=== PATIENT | female | born 1970 | race Caucasian/White ===

== ENCOUNTER 2021-04-08 14:46 | Outpatient (REF) | payer OTHER, SELFPAY ==
--- NOTE | ~2021-04-08 | MM_ITS ---
EXAMINATION: MM SCREENING DIGITAL BREAST TOMOSYNTHESIS, BILATERAL CLINICAL INFORMATION: Screening. Asymptomatic. The lifetime risk of breast cancer based on the Tyrer-Cuzick Model is 10%. COMPARISON: Mammography: 01/03/2019, 12/15/2017 (new baseline) TECHNIQUE: Digital breast tomosynthesis is performed in both the craniocaudal and mediolateral oblique views along with computer-aided detection (CAD). Synthesized 2D images are generated from the tomosynthesis. FINDINGS: There are scattered areas of fibroglandular density (ACR BI-RADS breast composition Category b). The right breast shows no mass or architectural abnormality. Both breasts have some scattered predominantly dermal calcifications. The axilla and skin contours are unremarkable. The left MLO view has focal radiating lines upper quadrant 5.8 cm from nipple, likely summation of the stromal and vascular markings rather than architectural changes. Patient will be recalled to confirm. MM/MM tomosynthesis screening BI IMPRESSION: 1. Left: Focal radiating lines upper breast on MLO view likely artifact from summation of stromal and vascular markings. 2. Right: No mammographic evidence of malignancy. ASSESSMENT: BI-RADS 0: Incomplete - Need Additional Imaging Evaluation RECOMMENDATION: 1. Additional views of the left breast (3D spot MLO, 3D ML). 2. Targeted ultrasound if warranted after review of the additional views. 3. Radiology department staff will contact the patient for additional imaging. This patient's information was entered into a reminder system with a target due date for their next mammogram.
== END 2021-04-08 14:47 | disposition home or self-care (01) ==
LOC: HO.MAMMO 14:46
PROVIDERS: PCP Family Medicine; Visit Provider Family Medicine
DX: Z12.31 Encounter for screening mammogram for malignant neoplasm of breast (principal)
CPT/HCPCS: 77063; 77067

== ENCOUNTER 2021-04-29 14:03 | Outpatient (REF) | payer OTHER, SELFPAY ==
--- NOTE | ~2021-04-29 | MM_ITS ---
EXAMINATION: MM DIAGNOSTIC DIGITAL BREAST TOMOSYNTHESIS, LEFT CLINICAL INFORMATION: Recall from screening for question of focal radiating lines upper left breast on MLO view. Suspect summation artifact. COMPARISON: Mammography: 04/08/2021, 01/03/2019, 12/15/2017 TECHNIQUE: Digital breast tomosynthesis is performed. 2D images are generated from the tomosynthesis. The following views are obtained: Spot MLO, standard ML FINDINGS: There are scattered areas of fibroglandular density (ACR BI-RADS breast composition Category b). The additional views show no architectural abnormality. There is no developing density or mass. Results are discussed with the patient at time of visit. MM/MM tomosynthesis added views L IMPRESSION: Additional views left breast show no abnormality. No significant changes from prior studies. ASSESSMENT: BI-RADS 1: Negative RECOMMENDATION: Routine annual mammography screening. This patient's information was entered into a reminder system with a target due date for their next mammogram.
== END 2021-04-29 14:04 | disposition home or self-care (01) ==
LOC: HO.MAMMO 14:03
PROVIDERS: Visit Provider Family Medicine
DX: N64.89 Other specified disorders of breast (principal)
CPT/HCPCS: 77061; 77065

== ENCOUNTER 2022-05-01 11:31 | Outpatient (REF) | payer OTHER, SELFPAY ==
--- NOTE | ~2022-05-01 | MM_ITS ---
EXAMINATION: MM SCREENING DIGITAL BREAST TOMOSYNTHESIS, BILATERAL CLINICAL INFORMATION: Screening. Asymptomatic. The lifetime risk of breast cancer based on the Tyrer-Cuzick Model is 8%. COMPARISON: Mammography: The 04/29/2021, 04/08/2021, 01/03/2019, 12/15/2017 (new baseline) TECHNIQUE: Digital breast tomosynthesis is performed in both the craniocaudal and mediolateral oblique views along with computer-aided detection (CAD). Synthesized 2D images are generated from the tomosynthesis. FINDINGS: There are scattered areas of fibroglandular density (ACR BI-RADS breast composition Category b). There are no significant masses, abnormal calcifications, or other abnormalities. Parenchymal pattern is similar to prior studies. There is no developing density or architectural abnormality. The axilla and skin contours are unremarkable. No significant changes. MM/MM tomosynthesis screening BI IMPRESSION: No mammographic evidence of malignancy. ASSESSMENT: BI-RADS 1: Negative RECOMMENDATION: Routine annual mammography screening. This patient's information was entered into a reminder system with a target due date for their next mammogram.
== END 2022-05-01 11:32 | disposition home or self-care (01) ==
LOC: HO.MAMMO 11:31
PROVIDERS: PCP Family Medicine; Visit Provider Family Medicine
DX: Z12.31 Encounter for screening mammogram for malignant neoplasm of breast (principal)
CPT/HCPCS: 77063; 77067

== ENCOUNTER 2022-08-08 14:45 | Emergency (ER) | payer OTHER, SELFPAY ==
--- NOTE | ~2022-08-08 | XR_ITS ---
EXAMINATION: XR CHEST CLINICAL INFORMATION: Chest pain COMPARISON: None TECHNIQUE: Frontal view of the chest was obtained. FINDINGS: No significant abnormality is noted involving the heart, lungs, mediastinum, bony thorax or soft tissues. XR/XR chest 1V IMPRESSION: Unremarkable examination.
--- NOTE | ~2022-08-08 | CT_ITS ---
EXAMINATION: CT ANGIOGRAM OF THE CHEST WITH AND WITHOUT CONTRAST (CT PULMONARY ANGIOGRAM FOR PE) CLINICAL INFORMATION: Reason for Exam left sided chest pain concern for PE COMPARISON: None TECHNIQUE: Prior to contrast administration, noncontrast localization images were obtained. Subsequently, multidetector volumetric imaging was performed from the thoracic inlet to below the diaphragms following the administration of 80 mL Omnipaque 350 intravenous contrast. No contrast reaction reported Sagittal, coronal, and MIP oblique sagittal reformatted images were obtained on the CT workstation, uploaded to PACS, and reviewed. This CT examination was performed using dose optimization techniques as appropriate, variously including the following: *Automated exposure control *Adjustment of mA and/or kV according to patient size (this includes techniques or standardized protocols for targeted exams where dose is matched to indication/reason for exam; i.e. extremities or head) *Use of iterative reconstruction technique Total exam dose-length product 210 mGy-cm FINDINGS: QUALITY OF STUDY/CONTRAST BOLUS: Satisfactory. PULMONARY ARTERIES: No central or segmental pulmonary emboli. THORACIC AORTA: No aneurysm or dissection. LUNG: No focal consolidation, nodules or masses. There is minimal left basilar atelectatic changes. PLEURA: No pleural effusion or pneumothorax. MEDIASTINUM: The heart size is normal. No pericardial effusion seen. No coronary artery calcium quantification is present. No abnormal size mediastinal or hilar lymph nodes seen. Central trachea and the bronchi widely patent. The thyroid lobes are symmetrical and normal. No evidence of septal bowing or right heart strain. CHEST WALL/AXILLA: No axillary or internal mammary lymphadenopathy. OSSEOUS STRUCTURES: No aggressive lytic or sclerotic process seen. UPPER ABDOMEN: Visualized liver, spleen, pancreas and bilateral adrenal glands unremarkable. No reflux of contrast into the hepatic veins to suggest elevated right heart pressures. CT/CT angio chest PE protocol IMPRESSION: No evidence of PE. No evidence aortic dissection or aneurysm. Trace platelike atelectasis left lung base. VTE: negative.
[2022-08-08 15:14] VITALS: BP 110/82; PULSE 99; RESP 18; TEMP 36.9; O2SAT 98; BMI 24.5
--- NOTE | 2022-08-08 15:14 | ECG_ITS ---
Test Reason : CHEST PAIN Blood Pressure : / mmHG Vent. Rate : 061 BPM Atrial Rate : 061 BPM P-R Int : 144 ms QRS Dur : 078 ms QT Int : 394 ms P-R-T Axes : 038 023 -01 degrees QTc Int : 396 ms Normal sinus rhythm with sinus arrhythmia Possible Left atrial enlargement Nonspecific T wave abnormality Abnormal ECG No previous ECGs available Referred By: Crow Coleman Electronically Signed By:DORINA SALCIDO MD
--- NOTE | 2022-08-08 15:15 | ED_ITS ---
HPI - General Adult General Chief complaint: Chest Pain <JIM Feliz - Last Filed: 08/08/22 15:17> Stated complaint: Chest pain <JIM Feliz - Last Filed: 08/08/22 15:17> Time Seen by Provider: 08/08/22 16:16 <JIM Feliz - Last Filed: 08/08/22 15:17> Source: patient <JIM Perkins - Last Filed: 08/08/22 18:55> Mode of arrival: ambulatory <JIM Perkins Last Filed: 08/08/22 18:55> Limitations: no limitations <JIM Perkins Last Filed: 08/08/22 18:55> History of Present Illness HPI narrative: 52 yo female presenting to the ER for evaluation of pleuritic type chest pain and difficultly taking a deep breath that started yesterday. She also reports a fever and headache for the last 3-4 days. She states yesterday she started with chest heaviness across the whole chest. Today the chest pain is on the left side and is localized to the center of the left chest, shooting to the back. It comes and goes. Has been taking ibuprofen with improvement. She also reports calf pain last week she thought was from running. No associated swelling or redness. She recently started estrogen and progesterone for HRT for her postmenopausal symptoms 3 weeks ago. <JIM Perkins - Last Filed: 08/08/22 18:55> MD complaint: chest pain <JIM Perkins - Last Filed: 08/08/22 18:55> Onset (ago): day(s) (1) <JIM Perkins Last Filed: 08/08/22 18:55> Location: chest <JIM Perkins Last Filed: 08/08/22 18:55> Radiation: back <JIM Perkins Last Filed: 08/08/22 18:55> Severity: moderate <JIM Perkins Last Filed: 08/08/22 18:55> Severity scale (1-10): 6 <JIM Perkins Last Filed: 08/08/22 18:55> Quality: stabbing and sharp <JIM Perkins Last Filed: 08/08/22 18:55> Pain Consistency: intermittent <JIM Perkins Last Filed: 08/08/22 18:55> Relieving factors: none <JIM Perkins Last Filed: 08/08/22 18:55> Exacerbating factors: none <JIM Perkins Last Filed: 08/08/22 18:55> Associated symptoms: chest pain, fever/chills, headaches and malaise <JIM Perkins Last Filed: 08/08/22 18:55> Treatments prior to arrival: none <JIM Perkins Last Filed: 08/08/22 18:55> Related Data Allergies/adverse reactions: Allergies Allergy/AdvReac Type Severity Reaction Status Date / Time amoxicillin [From AUGMENTIN] Allergy Unknown SWELLING Unverified 04/29/20 18:48 clavulanic acid Allergy Unknown SWELLING Unverified 04/29/20 18:48 [From AUGMENTIN] Sulfa (Sulfonamide Allergy Unknown HIVES Unverified 04/29/20 18:48 Antibiotics) [SULFA (SULFONAMIDE ANTIBIOTICS)] tetracycline Allergy Unknown Verified 11/02/16 00:00 Tetracyclines [TETRACYCLINES] Allergy Unknown HIVE Unverified 04/29/20 18:48 Pt states no food allergies Allergy Unknown Uncoded 11/02/16 00:00 <JIM Feliz Last Filed: 08/08/22 15:17> Review of Systems Review of Systems: Constitutional: + Fever, + Chills ENT/Mouth: No sore throat, No Rhinorrhea, No Swallowing Difficulty Eyes: No Eye Pain, No Swelling, No Redness Cardiovascular: + Chest Pain, + SOB, No Orthopnea, No Edema Respiratory: + Cough, No Sputum, No Wheezing, No dyspnea Gastrointestinal: No Nausea, No Vomiting, No Diarrhea, No abdominal Pain Genitourinary: No Dysuria, No Urinary Frequency, No Hematuria Musculoskeletal: + joint pain, + Myalgias Skin: No Skin Lesions, No rash Neuro: No Weakness, No Numbness, No Dizziness, No Headache Psych: + Anxiety/Panic, No Depression Heme/Lymph: No Bruising, No Lymphadenopathy <JIM Perkins - Last Filed: 08/08/22 18:55> [facility] Social History Social History: Social History Advance Directives: No Advance Directives Information Provided: No <JIM Feliz - Last Filed: 08/08/22 15:17> Physical Exam ED Vital Signs: Vital Signs - 24 hr 08/08/22 15:14 08/08/22 19:09 Temperature 98.5 F 99.4 F Pulse Rate 99 63 Respiratory Rate 18 17 Blood Pressure 110/82 100/66 Pulse Oximetry 98 100 Oxygen Delivery Method Room Air Room Air BMI result Body Mass Index 24.5 <JIM Feliz - Last Filed: 08/08/22 15:17> Vital Signs - 24 hr 08/08/22 15:14 08/08/22 19:09 Temperature 98.5 F 99.4 F Pulse Rate 99 63 Respiratory Rate 18 17 Blood Pressure 110/82 100/66 Pulse Oximetry 98 100 Oxygen Delivery Method Room Air Room Air BMI result Body Mass Index 24.5 <JIM Perkins - Last Filed: 08/08/22 18:55> Vital Signs - 24 hr 08/08/22 15:14 08/08/22 19:09 Temperature 98.5 F 99.4 F Pulse Rate 99 63 Respiratory Rate 18 17 Blood Pressure 110/82 100/66 Pulse Oximetry 98 100 Oxygen Delivery Method Room Air Room Air BMI result Body Mass Index 24.5 <Kari Liz NP - Last Filed: 08/08/22 19:49> Appearance: Alert. Oriented X3. No acute distress. Eyes: Pupils equal, round and reactive to light. ENT: Pharynx normal. Neck: Normal inspection. Neck supple. CVS: Normal heart rate and rhythm. Pulses normal. No chest wall tenderness. Respiratory: No respiratory distress. Breath sounds normal. Abdomen: Soft and nontender. +BS x4 Skin: Skin warm and dry. Normal skin color. Normal skin turgor. No rashes. Extremities: No lower extremity edema. No calf swelling or erythema. Neuro: Oriented X 3. No motor deficit. No sensory deficit. Steady gait <JIM Perkins - Last Filed: 08/08/22 18:55> Course Course Course Narrative: 1515 52 year old female presents w/ flu like sx X 3 days w/ bodyaches, fevers, chills, headache, and pleuritic CP. Recently started on hormone replacement therapy a few weeks ago shes worried about PE. Has had multiple negative at home COVID tests. No hx of PE. Not a smoker PE: patient well appearing, stable vitals, no lower extremity edema, negative remy b/l Plan: labs, viral panel, trop, dimer, cxr <JIM Feliz - Last Filed: 08/08/22 15:17> 1515 52 year old female presents w/ flu like sx X 3 days w/ bodyaches, fevers, chills, headache, and pleuritic CP. Recently started on hormone replacement therapy a few weeks ago shes worried about PE. Has had multiple negative at home COVID tests. No hx of PE. Not a smoker PE: patient well appearing, stable vitals, no lower extremity edema, negative remy b/l Plan: labs, viral panel, trop, dimer, cxr 19:49 CT PE study is negative. Will have patient follow-up for prior providers discharge instructions <Kari Liz NP - Last Filed: 08/08/22 19:49> Reevaluation(s) Reevaluation #1: troponin negative which is reassuring against ACS. DDIMER only 221 however given her calf pain last week and HRT will get CTA to r/o PE <JIM Perkins - Last Filed: 08/08/22 18:55> Medications Administered Discontinued Medications Generic Name Dose Route Start Last Admin Trade Name Freq PRN Reason Stop Dose Admin Iohexol 65 ml 08/08/22 17:21 08/08/22 17:21 Iohexol 350 Mg/Ml 75 Ml Infus..Btl IV 08/08/22 17:22 65 ml ONCE ONE Administration <JIM Feliz - Last Filed: 08/08/22 15:17> Medications Administered Discontinued Medications Generic Name Dose Route Start Last Admin Trade Name Freq PRN Reason Stop Dose Admin Iohexol 65 ml 08/08/22 17:21 08/08/22 17:21 Iohexol 350 Mg/Ml 75 Ml Infus..Btl IV 08/08/22 17:22 65 ml ONCE ONE Administration <JIM Perkins - Last Filed: 08/08/22 18:55> Medications Administered Discontinued Medications Generic Name Dose Route Start Last Admin Trade Name Carmelo PRN Reason Stop Dose Admin Iohexol 65 ml 08/08/22 17:21 08/08/22 17:21 Iohexol 350 Mg/Ml 75 Ml Infus..Btl IV 08/08/22 17:22 65 ml ONCE ONE Administration <Kari Liz NP - Last Filed: 08/08/22 19:49> Medical Decision Making Differential Diagnosis Differential Diagnoses: The differential diagnosis associated with the presentation includes <Kari Liz NP - Last Filed: 08/08/22 19:49> Consult Healthcare Provider Management of the patient was discussed with: [employer] <Kari Liz NP - Last Filed: 08/08/22 19:49> Lab Data MDM Lab Attestation statement: I reviewed the patient's lab results. <JIM Perkins - Last Filed: 08/08/22 18:55> Result Diagrams: : 08/08/22 16:04 08/08/22 16:04 <JIM Feliz - Last Filed: 08/08/22 15:17> Labs: Lab Results 08/08/22 08/08/22 08/08/22 Range/Units 16:04 16:04 16:04 WBC 9.9 (4.8-10.8) X10*3/uL RBC 4.18 L (4.20-5.50) X10*6/uL Hgb 12.8 (12.0-16.0) g/dl Hct 38.4 (37.0-47.0) % MCV 91.9 (80.0-98.0) fL MCH 30.6 (27.0-33.0) pg MCHC 33.3 (31.0-35.0) g/dl RDW 13.9 (11.0-16.0) % Plt Count 89 L (160-400) X10*3/uL MPV 11.2 (9.4-12.3) fL Immature Gran % (Auto) 0.4 (0.0-0.4) % Neut % (Auto) 80.5 H (45-73) % Lymph % (Auto) 10.1 L (20-40) % [place] % (Auto) 8.1 (2-11) % Eos % (Auto) 0.6 (0-4) % Baso % (Auto) 0.3 (0-2) % Lymph # (Auto) 1.0 L (1.2-4.9) X10*3/uL [place] # (Auto) 0.8 (0.1-1.2) X10*3/uL Eos # (Auto) 0.1 (0.0-0.4) X10*3/uL Baso # (Auto) 0.0 (0.0-0.2) X10*3/uL Abs Immat Gran (auto) 0.04 H (0.00-0.03) X10*3/uL Absolute Neuts (auto) 8.0 (2.0-8.3) x10*3/uL Absolute Nucleated RBC 0.000 (0.0-0.012) X10*3/uL Nucleated RBC % (auto) 0.0 (0.0-0.2) /100WBC Smear Tech's Comments VERIFIED ESR (0-20) MM/HR D-Dimer High Sensitivty 221 NG/ML Sodium 135 (135-145) mmol/L Potassium 4.2 (3.3-5.1) mmol/L Chloride 104 (96-108) mmol/L Carbon Dioxide 22 (22-29) mmol/L Anion Gap 13 (12-20) BUN 15 (9-16) mg/dL Creatinine 0.86 (0.5-1.4) mg/dL Estim Creat Clear Calc 64.9 Estimated GFR > 60 Random Glucose 94 (60-115) mg/dL Calcium 9.2 (8.4-10.2) mg/dL Magnesium 1.8 (1.6-2.6) mg/dL Total Bilirubin 0.5 (0.0-1.0) mg/dL AST 64 H (5-31) U/L ALT 96 H (0-31) U/L Alkaline Phosphatase 85 (39-117) U/L Troponin I High Sens (<3.5-17.0) ng/L C-Reactive Protein 37.29 H (< or = 0.50) mg/dL Total Protein 6.5 (6.5-8.0) g/dL Albumin 3.9 (3.5-5.0) g/dL Influenza Type A (PCR) (Negative) Influenza Type B (PCR) (Negative) RSV RNA Qual (PCR) (Negative) SARS-CoV-2 RNA (RT-PCR) (Negative) 08/08/22 08/08/22 08/08/22 Range/Units 16:04 16:04 16:04 WBC (4.8-10.8) X10*3/uL RBC (4.20-5.50) X10*6/uL Hgb (12.0-16.0) g/dl Hct (37.0-47.0) % MCV (80.0-98.0) fL MCH (27.0-33.0) pg MCHC (31.0-35.0) g/dl RDW (11.0-16.0) % Plt Count (160-400) X10*3/uL MPV (9.4-12.3) fL Immature Gran % (Auto) (0.0-0.4) % Neut % (Auto) (45-73) % Lymph % (Auto) (20-40) % [place] % (Auto) (2-11) % Eos % (Auto) (0-4) % Baso % (Auto) (0-2) % Lymph # (Auto) (1.2-4.9) X10*3/uL [place] # (Auto) (0.1-1.2) X10*3/uL Eos # (Auto) (0.0-0.4) X10*3/uL Baso # (Auto) (0.0-0.2) X10*3/uL Abs Immat Gran (auto) (0.00-0.03) X10*3/uL Absolute Neuts (auto) (2.0-8.3) x10*3/uL Absolute Nucleated RBC (0.0-0.012) X10*3/uL Nucleated RBC % (auto) (0.0-0.2) /100WBC Smear Tech's Comments ESR 87 H (0-20) MM/HR D-Dimer High Sensitivty NG/ML Sodium (135-145) mmol/L Potassium (3.3-5.1) mmol/L Chloride (96-108) mmol/L Carbon Dioxide (22-29) mmol/L Anion Gap (12-20) BUN (9-16) mg/dL Creatinine (0.5-1.4) mg/dL Estim Creat Clear Calc Estimated GFR Random Glucose (60-115) mg/dL Calcium (8.4-10.2) mg/dL Magnesium (1.6-2.6) mg/dL Total Bilirubin (0.0-1.0) mg/dL AST (5-31) U/L ALT (0-31) U/L Alkaline Phosphatase (39-117) U/L Troponin I High Sens < 3.5 (<3.5-17.0) ng/L C-Reactive Protein (< or = 0.50) mg/dL Total Protein (6.5-8.0) g/dL Albumin (3.5-5.0) g/dL Influenza Type A (PCR) NEGATIVE (Negative) Influenza Type B (PCR) NEGATIVE (Negative) RSV RNA Qual (PCR) NEGATIVE (Negative) SARS-CoV-2 RNA (RT-PCR) NEGATIVE (Negative) <JIM Feliz - Last Filed: 08/08/22 15:17> Lab Results 08/08/22 08/08/22 08/08/22 Range/Units 16:04 16:04 16:04 WBC 9.9 (4.8-10.8) X10*3/uL RBC 4.18 L (4.20-5.50) X10*6/uL Hgb 12.8 (12.0-16.0) g/dl Hct 38.4 (37.0-47.0) % MCV 91.9 (80.0-98.0) fL MCH 30.6 (27.0-33.0) pg MCHC 33.3 (31.0-35.0) g/dl RDW 13.9 (11.0-16.0) % Plt Count 89 L (160-400) X10*3/uL MPV 11.2 (9.4-12.3) fL Immature Gran % (Auto) 0.4 (0.0-0.4) % Neut % (Auto) 80.5 H (45-73) % Lymph % (Auto) 10.1 L (20-40) % [place] % (Auto) 8.1 (2-11) % Eos % (Auto) 0.6 (0-4) % Baso % (Auto) 0.3 (0-2) % Lymph # (Auto) 1.0 L (1.2-4.9) X10*3/uL [place] # (Auto) 0.8 (0.1-1.2) X10*3/uL Eos # (Auto) 0.1 (0.0-0.4) X10*3/uL Baso # (Auto) 0.0 (0.0-0.2) X10*3/uL Abs Immat Gran (auto) 0.04 H (0.00-0.03) X10*3/uL Absolute Neuts (auto) 8.0 (2.0-8.3) x10*3/uL Absolute Nucleated RBC 0.000 (0.0-0.012) X10*3/uL Nucleated RBC % (auto) 0.0 (0.0-0.2) /100WBC Smear Tech's Comments VERIFIED ESR (0-20) MM/HR D-Dimer High Sensitivty 221 NG/ML Sodium 135 (135-145) mmol/L Potassium 4.2 (3.3-5.1) mmol/L Chloride 104 (96-108) mmol/L Carbon Dioxide 22 (22-29) mmol/L Anion Gap 13 (12-20) BUN 15 (9-16) mg/dL Creatinine 0.86 (0.5-1.4) mg/dL Estim Creat Clear Calc 64.9 Estimated GFR > 60 Random Glucose 94 (60-115) mg/dL Calcium 9.2 (8.4-10.2) mg/dL Magnesium 1.8 (1.6-2.6) mg/dL Total Bilirubin 0.5 (0.0-1.0) mg/dL AST 64 H (5-31) U/L ALT 96 H (0-31) U/L Alkaline Phosphatase 85 (39-117) U/L Troponin I High Sens (<3.5-17.0) ng/L C-Reactive Protein 37.29 H (< or = 0.50) mg/dL Total Protein 6.5 (6.5-8.0) g/dL Albumin 3.9 (3.5-5.0) g/dL Influenza Type A (PCR) (Negative) Influenza Type B (PCR) (Negative) RSV RNA Qual (PCR) (Negative) SARS-CoV-2 RNA (RT-PCR) (Negative) 08/08/22 08/08/22 08/08/22 Range/Units 16:04 16:04 16:04 WBC (4.8-10.8) X10*3/uL RBC (4.20-5.50) X10*6/uL Hgb (12.0-16.0) g/dl Hct (37.0-47.0) % MCV (80.0-98.0) fL MCH (27.0-33.0) pg MCHC (31.0-35.0) g/dl RDW (11.0-16.0) % Plt Count (160-400) X10*3/uL MPV (9.4-12.3) fL Immature Gran % (Auto) (0.0-0.4) % Neut % (Auto) (45-73) % Lymph % (Auto) (20-40) % [place] % (Auto) (2-11) % Eos % (Auto) (0-4) % Baso % (Auto) (0-2) % Lymph # (Auto) (1.2-4.9) X10*3/uL [place] # (Auto) (0.1-1.2) X10*3/uL Eos # (Auto) (0.0-0.4) X10*3/uL Baso # (Auto) (0.0-0.2) X10*3/uL Abs Immat Gran (auto) (0.00-0.03) X10*3/uL Absolute Neuts (auto) (2.0-8.3) x10*3/uL Absolute Nucleated RBC (0.0-0.012) X10*3/uL Nucleated RBC % (auto) (0.0-0.2) /100WBC Smear Tech's Comments ESR 87 H (0-20) MM/HR D-Dimer High Sensitivty NG/ML Sodium (135-145) mmol/L Potassium (3.3-5.1) mmol/L Chloride (96-108) mmol/L Carbon Dioxide (22-29) mmol/L Anion Gap (12-20) BUN (9-16) mg/dL Creatinine (0.5-1.4) mg/dL Estim Creat Clear Calc Estimated GFR Random Glucose (60-115) mg/dL Calcium (8.4-10.2) mg/dL Magnesium (1.6-2.6) mg/dL Total Bilirubin (0.0-1.0) mg/dL AST (5-31) U/L ALT (0-31) U/L Alkaline Phosphatase (39-117) U/L Troponin I High Sens < 3.5 (<3.5-17.0) ng/L C-Reactive Protein (< or = 0.50) mg/dL Total Protein (6.5-8.0) g/dL Albumin (3.5-5.0) g/dL Influenza Type A (PCR) NEGATIVE (Negative) Influenza Type B (PCR) NEGATIVE (Negative) RSV RNA Qual (PCR) NEGATIVE (Negative) SARS-CoV-2 RNA (RT-PCR) NEGATIVE (Negative) <JIM Perkins - Last Filed: 08/08/22 18:55> Lab Results 08/08/22 08/08/22 08/08/22 Range/Units 16:04 16:04 16:04 WBC 9.9 (4.8-10.8) X10*3/uL RBC 4.18 L (4.20-5.50) X10*6/uL Hgb 12.8 (12.0-16.0) g/dl Hct 38.4 (37.0-47.0) % MCV 91.9 (80.0-98.0) fL MCH 30.6 (27.0-33.0) pg MCHC 33.3 (31.0-35.0) g/dl RDW 13.9 (11.0-16.0) % Plt Count 89 L (160-400) X10*3/uL MPV 11.2 (9.4-12.3) fL Immature Gran % (Auto) 0.4 (0.0-0.4) % Neut % (Auto) 80.5 H (45-73) % Lymph % (Auto) 10.1 L (20-40) % [place] % (Auto) 8.1 (2-11) % Eos % (Auto) 0.6 (0-4) % Baso % (Auto) 0.3 (0-2) % Lymph # (Auto) 1.0 L (1.2-4.9) X10*3/uL [place] # (Auto) 0.8 (0.1-1.2) X10*3/uL Eos # (Auto) 0.1 (0.0-0.4) X10*3/uL Baso # (Auto) 0.0 (0.0-0.2) X10*3/uL Abs Immat Gran (auto) 0.04 H (0.00-0.03) X10*3/uL Absolute Neuts (auto) 8.0 (2.0-8.3) x10*3/uL Absolute Nucleated RBC 0.000 (0.0-0.012) X10*3/uL Nucleated RBC % (auto) 0.0 (0.0-0.2) /100WBC Smear Tech's Comments VERIFIED ESR (0-20) MM/HR D-Dimer High Sensitivty 221 NG/ML Sodium 135 (135-145) mmol/L Potassium 4.2 (3.3-5.1) mmol/L Chloride 104 (96-108) mmol/L Carbon Dioxide 22 (22-29) mmol/L Anion Gap 13 (12-20) BUN 15 (9-16) mg/dL Creatinine 0.86 (0.5-1.4) mg/dL Estim Creat Clear Calc 64.9 Estimated GFR > 60 Random Glucose 94 (60-115) mg/dL Calcium 9.2 (8.4-10.2) mg/dL Magnesium 1.8 (1.6-2.6) mg/dL Total Bilirubin 0.5 (0.0-1.0) mg/dL AST 64 H (5-31) U/L ALT 96 H (0-31) U/L Alkaline Phosphatase 85 (39-117) U/L Troponin I High Sens (<3.5-17.0) ng/L C-Reactive Protein 37.29 H (< or = 0.50) mg/dL Total Protein 6.5 (6.5-8.0) g/dL Albumin 3.9 (3.5-5.0) g/dL Influenza Type A (PCR) (Negative) Influenza Type B (PCR) (Negative) RSV RNA Qual (PCR) (Negative) SARS-CoV-2 RNA (RT-PCR) (Negative) 08/08/22 08/08/22 08/08/22 Range/Units 16:04 16:04 16:04 WBC (4.8-10.8) X10*3/uL RBC (4.20-5.50) X10*6/uL Hgb (12.0-16.0) g/dl Hct (37.0-47.0) % MCV (80.0-98.0) fL MCH (27.0-33.0) pg MCHC (31.0-35.0) g/dl RDW (11.0-16.0) % Plt Count (160-400) X10*3/uL MPV (9.4-12.3) fL Immature Gran % (Auto) (0.0-0.4) % Neut % (Auto) (45-73) % Lymph % (Auto) (20-40) % [place] % (Auto) (2-11) % Eos % (Auto) (0-4) % Baso % (Auto) (0-2) % Lymph # (Auto) (1.2-4.9) X10*3/uL [place] # (Auto) (0.1-1.2) X10*3/uL Eos # (Auto) (0.0-0.4) X10*3/uL Baso # (Auto) (0.0-0.2) X10*3/uL Abs Immat Gran (auto) (0.00-0.03) X10*3/uL Absolute Neuts (auto) (2.0-8.3) x10*3/uL Absolute Nucleated RBC (0.0-0.012) X10*3/uL Nucleated RBC % (auto) (0.0-0.2) /100WBC Smear Tech's Comments ESR 87 H (0-20) MM/HR D-Dimer High Sensitivty NG/ML Sodium (135-145) mmol/L Potassium (3.3-5.1) mmol/L Chloride (96-108) mmol/L Carbon Dioxide (22-29) mmol/L Anion Gap (12-20) BUN (9-16) mg/dL Creatinine (0.5-1.4) mg/dL Estim Creat Clear Calc Estimated GFR Random Glucose (60-115) mg/dL Calcium (8.4-10.2) mg/dL Magnesium (1.6-2.6) mg/dL Total Bilirubin (0.0-1.0) mg/dL AST (5-31) U/L ALT (0-31) U/L Alkaline Phosphatase (39-117) U/L Troponin I High Sens < 3.5 (<3.5-17.0) ng/L C-Reactive Protein (< or = 0.50) mg/dL Total Protein (6.5-8.0) g/dL Albumin (3.5-5.0) g/dL Influenza Type A (PCR) NEGATIVE (Negative) Influenza Type B (PCR) NEGATIVE (Negative) RSV RNA Qual (PCR) NEGATIVE (Negative) SARS-CoV-2 RNA (RT-PCR) NEGATIVE (Negative) <Kari Liz NP - Last Filed: 08/08/22 19:49> Independent Interpretation I performed an independent interpretation of an: EKG <JIM Perkins - Last Filed: 08/08/22 18:55> CT Scan <Kari Liz NP - Last Filed: 08/08/22 19:49> Interpretation: Normal sinus rhythm with sinus arrhythmia, ventricular rate 61 beats per minute, T-wave inversions noted in leads III, AVF, V1, V3, V4. no old EKG for comparison <JIM Perkins - Last Filed: 08/08/22 18:55> Radiology Impression Discussion of test interpretation with radiology: I have reviewed the radiologist's reading. <Kari Liz NP - Last Filed: 08/08/22 19:49> Radiologist Impression: EXAMINATION: CT ANGIOGRAM OF THE CHEST WITH AND WITHOUT CONTRAST (CT PULMONARY ANGIOGRAM FOR PE) CLINICAL INFORMATION: Reason for Exam left sided chest pain concern for PE COMPARISON: None? TECHNIQUE: Prior to contrast administration, noncontrast localization images were obtained. ? Subsequently, multidetector volumetric imaging was performed from the thoracic inlet to below the diaphragms following the administration of 80 mL Omnipaque 350 intravenous contrast. No contrast reaction reported Sagittal, coronal, and MIP oblique sagittal reformatted images were obtained on the CT workstation, uploaded to PACS, and reviewed. This CT examination was performed using dose optimization techniques as appropriate, variously including the following: *Automated exposure control *Adjustment of mA and/or kV according to patient size (this includes techniques or standardized protocols for targeted exams where dose is matched to indication/reason for exam; i.e. extremities or head) *Use of iterative reconstruction technique Total exam dose-length product 210 mGy-cm FINDINGS: QUALITY OF STUDY/CONTRAST BOLUS: Satisfactory. PULMONARY ARTERIES: No central or segmental pulmonary emboli.? THORACIC AORTA: No aneurysm or dissection. LUNG: No focal consolidation, nodules or masses. There is minimal left basilar atelectatic changes. PLEURA: No pleural effusion or pneumothorax. MEDIASTINUM: The heart size is normal. No pericardial effusion seen. No coronary artery calcium quantification is present. No abnormal size mediastinal or hilar lymph nodes seen. Central trachea and the bronchi widely patent. The thyroid lobes are symmetrical and normal.? No evidence of septal bowing or right heart strain. CHEST WALL/AXILLA: No axillary or internal mammary lymphadenopathy. OSSEOUS STRUCTURES: No aggressive lytic or sclerotic process seen.? UPPER ABDOMEN: Visualized liver, spleen, pancreas and bilateral adrenal glands unremarkable.? No reflux of contrast into the hepatic veins to suggest elevated right heart pressures. CT/CT angio chest PE protocol IMPRESSION: No evidence of PE. ? No evidence aortic dissection or aneurysm. ? Trace platelike atelectasis left lung base. ? VTE: negative. <Kari Liz NP - Last Filed: 08/08/22 19:49> Scores Heart Score History: -1- moderately suspicious <JIM Perkins - Last Filed: 08/08/22 18 :55> ECG: -1- non specific repolarization disturbance <JIM Perkins Last Filed: 08/08/22 18:55> Age: -1- >45 - <65 <JIM Perkins Last Filed: 08/08/22 18:55> Risk factory: -0- no risk factors known <JIM Perkins Last Filed: 08/08/22 18:55> Troponin: -0- < or = normal limit <JIM Perkins Last Filed: 08/08/22 18:55> Score: 3 <JIM Perkins - Last Filed: 08/08/22 18:55> 3 <Kari Liz NP - Last Filed: 08/08/22 19:49> Risk: 1.7% <JIM Perkins - Last Filed: 08/08/22 18:55> 1.7% <Kari Liz NP - Last Filed: 08/08/22 19:49> Discharge Plan Discharge Clinical Impression: Atypical chest pain, Acute viral syndrome <JIM Feliz - Last Filed: 08/08/22 15:17> Patient Disposition: Home, Self-Care <JIM Feliz - Last Filed: 08/08/22 15:17> Instructions: Chest Pain (DC) <JIM Feliz - Last Filed: 08/08/22 15:17> Additional Instructions: You tested negative for COVID, Flu and RSV. Your CT scan showed Your lab workup was largely unremarkable. You did have slightly elevated liver enzymes and slightly low platelets, these findings can be seen with viral illnesses. Tick panel was sent, we will call if you if anything is positive. <JIM Feliz - Last Filed: 08/08/22 15:17> Referrals: [facility] [Provider Group] (left sided chest pain) <JIM Feliz - Last Filed: 08/08/22 15:17> Stand Alone Forms: Work/School Release <JIM Feliz - Last Filed: 08/08/22 15:17>
[2022-08-08 16:13] LABS: Basophils Percent Auto 0.3 % (0-2); Eosinophils Absolute Auto 0.1 X10*3/uL (0.0-0.4); Eosinophils Percent Auto 0.6 % (0-4); Mean Corpuscular HGB Conc 33.3 g/dl (31.0-35.0); Mean Platelet Volume 11.2 fL (9.4-12.3); PLT CLUMP 1; Red Cell Distribution Width 13.9 % (11.0-16.0); SCAN SMEAR FLAG 1
[2022-08-08 16:15] LABS: Hematocrit 38.4 % (37.0-47.0); Hemoglobin 12.8 g/dl (12.0-16.0); Imm Gran Abs Auto 0.04 X10*3/uL (0.00-0.03); Imm Gran Pct Auto 0.4 % (0.0-0.4); Lymphocytes Percent Auto 10.1 % (20-40); MANUAL DIFF FLAG SCAN; Mean Corpuscular Hemoglobin 30.6 pg (27.0-33.0); Mean Corpuscular Volume 91.9 fL (80.0-98.0); Monocytes Absolute Auto 0.8 X10*3/uL (0.1-1.2); Monocytes Percent Auto 8.1 % (2-11); Neutrophils Percent Auto 80.5 % (45-73); Red Blood Count 4.18 X10*6/uL (4.20-5.50)
[2022-08-08 16:16] LABS: White Blood Count 9.9 X10*3/uL (4.8-10.8)
[2022-08-08 16:20] LABS: D Dimer High Sensitivity 221 NG/ML
[2022-08-08 16:30] LABS: Alanine Aminotransferase 96 U/L (0-31); Albumin Level 3.9 g/dL (3.5-5.0); Alkaline Phosphatase 85 U/L (39-117); Anion Gap 13 (12-20); Aspartate Amino Transferase 64 U/L (5-31); Bilirubin Total 0.5 mg/dL (0.0-1.0); Blood Urea Nitrogen 15 mg/dL (9-16); Calcium 9.2 mg/dL (8.4-10.2); Carbon Dioxide 22 mmol/L (22-29); Chloride 104 mmol/L (96-108); Creatinine Clr Calc Pharmacy 64.9; Estimated Glomerular Filt Rate > 60; Glucose Random 94 mg/dL (60-115); Magnesium 1.8 mg/dL (1.6-2.6); Potassium 4.2 mmol/L (3.3-5.1); Sodium 135 mmol/L (135-145); Total Protein 6.5 g/dL (6.5-8.0)
[2022-08-08 16:36] LABS: Platelet Count 89 X10*3/uL (160-400); SLIDE REVIEW VERIFIED; Troponin-I High Sensitivity < 3.5 ng/L (<3.5-17.0)
[2022-08-08 16:52] LABS: Influenza A PCR NEGATIVE (Negative); Influenza B PCR NEGATIVE (Negative); Resp Syncy Virus RNA Qual PCR NEGATIVE (Negative); SARS COV2 PCR INHOUSE NEGATIVE (Negative)
[2022-08-08] MEDS: iohexoL 350 MG/ML 75 ML INFUS..BTL 65 ML IV (17:21)
[2022-08-08 19:09] VITALS: BP 100/66; PULSE 63; RESP 17; TEMP 37.4; O2SAT 100
[2022-08-08 19:35] LABS: C Reactive Protein 37.29 mg/dL (< or = 0.50)
[2022-08-08 19:47] LABS: Erythrocyte Sedimentation Rate 87 MM/HR (0-20)
[2022-08-11 06:28] LABS: Lyme Abs Screen <0.90 index
[2022-08-14 18:03] LABS: Rocky Mtn. Spot. Fever IgG Ab Not Detected (Not Detected); Rocky Mtn.Spot. Fever IgM Ab Not Detected (Not Detected)
[2022-08-17 13:48] LABS: A. Phagocytophilum Ab IgG <1:64 (<1:64); A. Phagocytophilum Ab IgM <1:20 (<1:20); E. Chaffeensis Ab IgG <1:64 (<1:64); E. Chaffeensis Ab IgM <1:20 (<1:20)
== END 2022-08-08 20:03 | disposition home or self-care (01) ==
PROVIDERS: Physician Assistant; Emergency Provider Internal Medicine; PCP Family Medicine
DX: R07.89 Other chest pain (principal); B34.9 Viral infection, unspecified; Z20.822 Contact with and (suspected) exposure to COVID-19; Z79.899 Other long term (current) drug therapy
CPT/HCPCS: 0241U; 36415; 71045; 71275; 80053; 83735; 84484; 85025; 85379; 85652; 86140; 86617; 86618; 86666; 86757; 93005; 99284; Q9967

== ENCOUNTER → 2022-09-13 08:47 | Outpatient (BNVA) | payer OTHER, SELFPAY | PROVIDERS: PCP Family Medicine; Visit Provider Internal Medicine Cardiovascular Disease | DX: R07.9 Chest pain, unspecified (principal); I34.1 Nonrheumatic mitral (valve) prolapse; R00.2 Palpitations; E78.5 Hyperlipidemia, unspecified | CPT/HCPCS: 93005; 99202 ==

== ENCOUNTER → 2022-09-25 07:55 | Outpatient (REF) | payer OTHER, SELFPAY ==
--- NOTE | 2022-09-25 07:58 | HM_ITS ---
* Total monitoring time about 3 days. * Underlying rhythm is sinus. Average ventricular rate 64/Min. Range 38 to 147/Min. * About 2.8% the time, rate > 100/min-sinus tachycardia * Rare supraventricular ectopy. Minimal burden. * One ventricular couplet. * No significant pauses or AV blocks. * No patient marker or diary. MTDD
--- NOTE | 2022-09-25 07:58 | CA_ITS ---
Transthoracic Echocardiogram Patient (Last, First, Middle): Milagros Trujillo E Gender: Female Date of : 1970 Age: 52 Procedure Date: 09/25/2022 Procedure Type: Transthoracic Echocardiogram Location: OP Height: 157.48 cm Weight: 60.78 kg BSA: 1.61 m2 Heart Rate: 47 bpm General Operations Manager: ÁLVARO Referring MD: Jason Yan MD Symptoms: I34.1 - Nonrheumatic mitral (valve) prolapse Study Quality: Adequate ECG Rhythm: Bradycardia Conclusions: - The left ventricular systolic function is normal. The visually estimated ejection fraction is between 60-65%. - Mitral valve leaflets appear thickened without any definitive prolapse. Mild mitral regurgitation. Findings Left Ventricle Normal left ventricular cavity size. There is normal left ventricular wall thickness. The left ventricular systolic function is normal. The visually estimated ejection fraction is between 60-65%. There is no evidence of regional wall motion abnormalities. LV peak GLS 22.1%. Right Ventricle Normal right ventricular cavity size and systolic function. Atria Both atria are normal in size. Aortic Valve The aortic valve structure and function is likely normal. There is a normal trileaflet aortic valve. There is no aortic valve stenosis. There is trace (trivial) aortic valve regurgitation. Mitral Valve There is mild anterior and posterior mitral leaflet thickening. There is mild mitral valve regurgitation. There is no mitral valve stenosis. Pulmonic Valve The pulmonic valve is likely normal. Tricuspid Valve Normal tricuspid valve structure. There is mild tricuspid valve regurgitation. Great Vessels The asc aorta is normal in size. Venous The inferior vena cava is mildly dilated and collapses less than 50% with inspiration. Pericardium/Pleural There is no evidence of pericardial effusion. Prior Study Comparison No prior study available for comparison. Measurements 2D Linear Measurements IVSd: 0.63 0.6-0.9/0.6-1.0 cm LVIDd: 4.53 3.9-5.3/4.2-5.9 cm LVIDd Index: 2.81 2.4-3.2/2.2-3.1 cm/m2 LVIDs: 2.77 2.0-3.6 cm LVPWd: 0.66 0.7-1.1 cm Ao Root: 3.10 2.1-3.5 cm LV Mass: 108.13 67-162/88-224 g LV Mass Index: 67.16 43-95/49-115 g/m2 LVOT Diam: 2.10 3.0+(-)1.3 cm 2D Systolic Function EF 4C: 61.20 >55% EF 2C: 70.30 >55% EF BiP: 65.00 >55% Mitral Valve MV Pk E: 1.10 MV PK A: 0.53 MV Decel Time: 153.00 E/A: 2.10 E'Lateral: 13.70 E'Medial: 11.40 E/E' Med: 9.60 E/E' Lat: 8.00 PHT: 45.00 MVA PHT: 4.89 Decel [place]: 7.22 MR Vol - PW Dopp: 32.47 MR VTI: 1.91 MR ERO: 17.00 MR Alias Gilles: 0.39 MR RAD: 0.60 Aortic Valve AoV Pk Gillse: 1.36 AoV Mn Gilles: 0.89 AoV VTI: 0.28 AoV Pk Grad: 7.00 Aov Mn Grad: 4.00 PEARL Cont.VTI: 3.01 LVOT LVOT Pk Gilles: 1.05 LVOT Mn Gilles: 0.77 LVOT VTI: 0.24 LVOT Pk Grad: 4.00 LVOT Mn Grad: 3.00 LVOT Diam: 2.10 LVOT Area: 3.46 Diastolic Function MV Pk E: 1.10 MV Pk A: 0.53 E/A: 2.10 E'Medial: 11.40 E/E' Med: 9.60 E' Laterial: 13.70 E/E' Lat: 8.00 Right Ventricle TAPSE (mm): 19.90 TVS' Gilles: 10.00 Tricuspid Valve TR Pk Gilles: 2.40 TR Pk Grad: 23.00 RA Press: 8.00 RVSP: 31.00 Great Vessels Aorta Ao Root-2D: 3.10 2.0-3.7 cm Sinus of Valsalva: 3.10 2.0-3.5 cm Ao Asc: 3.60 2.1-3.4 cm Pulmonary Veins Pulm Vein S/D 0.70 Pulmonary Valve PV Pk Gilles: 1.21 Peak PV Grad: 6.00 Updated in Other Vendor System with Status of Final Aj Monroe MD electronically signed on 09/26/2022 9:28:10 AM with status of Final
== END ==
LOC: HO.CARD 07:55
PROVIDERS: Visit Provider Internal Medicine Cardiovascular Disease
DX: I34.1 Nonrheumatic mitral (valve) prolapse (principal); R00.2 Palpitations
CPT/HCPCS: 93242; 93306; 93356

== ENCOUNTER → 2022-10-24 09:09 | Outpatient (BNVA) | payer OTHER, SELFPAY | PROVIDERS: PCP Family Medicine; Referring Provider Family Medicine; Visit Provider Internal Medicine Cardiovascular Disease | DX: I34.1 Nonrheumatic mitral (valve) prolapse (principal); R00.2 Palpitations | CPT/HCPCS: 99212 ==

== ENCOUNTER 2023-05-08 15:26 | Outpatient (REF) | payer OTHER, SELFPAY | END 2023-05-08 15:27 | disposition home or self-care (01) | LOC: HO.MAMMO 15:26 | PROVIDERS: PCP Family Medicine; Visit Provider Family Medicine | DX: Z12.31 Encounter for screening mammogram for malignant neoplasm of breast (principal) | CPT/HCPCS: 77063; 77067 ==

== ENCOUNTER → 2023-05-08 15:45 | Outpatient (BNV) | payer OTHER, SELFPAY | PROVIDERS: PCP Family Medicine; Visit Provider Radiology Diagnostic Radiology | DX: Z12.31 Encounter for screening mammogram for malignant neoplasm of breast (principal) | CPT/HCPCS: 77063; 77067 ==

== ENCOUNTER 2023-05-29 07:06 | Outpatient (REF) | payer OTHER, SELFPAY ==
--- NOTE | ~2023-05-29 | MR_ITS ---
EXAMINATION: MR BRAIN WITHOUT AND WITH CONTRAST CLINICAL INFORMATION: 53-year-old with visual changes of 6 months' duration. Evaluate for pituitary adenoma. COMPARISON: None available. TECHNIQUE: Multiplanar, multisequence MRI of the brain/sella was obtained before and after the intravenous administration of 3 mL Gadavist. FINDINGS: SELLA: The pituitary gland enhances homogenously with a normal posterior pituitary bright spot without a definite focal lesion. The dome of the anterior pituitary lobe is convex upward measuring 7 mm in maximum height which is an unusual configuration for a patient of this age. There is no definite mass effect on the adjacent optic chiasm or prechiasmatic optic nerves. The infundibulum is midline and is normal in thickness, enhancing normally. The cavernous sinuses enhance normally and appear symmetric. Normal signal voids are seen in the carotid siphons. Brain Volume: Within normal limits within the limitations of qualitative assessment. Structural: No malformations. Brain and Meninges: DWI sequence demonstrates no restricted diffusion to suggest acute or subacute cerebral ischemia. Scattered subcentimeter foci of FLAIR/T2 signal hyperintensity are seen within the subcortical white matter of both cerebral hemispheres with no abnormal enhancement, which are nonspecific findings but could reflect chronic ischemic microangiopathy. There is a 7 mm ovoid nonenhancing T2 hyperintensity which is T1 hypointense in the deep right frontal white matter adjacent to the frontal horn of the right lateral ventricle which may reflect prominent CSF capping or may be sequelae of a chronic deep white matter infarct. There is incidental benign cerebellar tonsillar ectopia at the foramen magnum. Monique-white matter differentiation is well maintained. No extra-axial fluid collections, intracranial mass lesions or pathologic intracranial enhancement are identified and there is no space-occupying process or mass effect throughout the remainder of the brain. Ventricles and Subarachnoid Spaces: The ventricular system and subarachnoid spaces are within normal limits without hydrocephalus. Orbital Structures: The visualized orbital structures are grossly unremarkable within the limitations of the study. Vascular: Signal voids are noted in the visualized major intracranial vessels. Osseous Structures, Sinuses/Mastoids, Extracranial Soft Tissues: Osseous marrow signal intensity appears grossly within normal limits. Incidental note is made of a 2.5 cm defect in the anterior nasal septum. Correlate with direct visualization and clinical history. MR/MR head/brain wo/w con IMPRESSION: 1. Convex upward margin to an otherwise normal sized pituitary gland without a focal lesion, with normal enhancement seen. Differential diagnostic considerations could include physiologic hypertrophy, and less likely IgG-4 related hypophysitis as well as other forms of hypophysitis such as granulomatous and less likely lymphocytic hypophysitis. Recommend followup MRI of the sella without and with contrast in 6 months to reassess or at another clinically appropriate interval. 2. Nonspecific nonenhancing white matter lesions in the cerebral hemispheres bilaterally which may reflect chronic ischemic microangiopathy. 3. Large anterior nasal septal defect. Recommend correlation with clinical history and physical examination.
[2023-05-29] MEDS: gadobutroL 2 ML VIAL IVPUSH ×2 (08:06→08:07)
== END 2023-05-29 07:07 | disposition home or self-care (01) ==
LOC: HO.MRI 07:06
PROVIDERS: PCP Family Medicine; Visit Provider Family Medicine
DX: D35.2 Benign neoplasm of pituitary gland (principal)
CPT/HCPCS: 70553; A9585

== ENCOUNTER 2024-05-09 14:27 | Outpatient (REF) | payer OTHER, SELFPAY ==
--- NOTE | ~2024-05-09 | MM_ITS ---
EXAMINATION: MM SCREENING DIGITAL BREAST TOMOSYNTHESIS, BILATERAL CLINICAL INFORMATION: Screening. Asymptomatic. COMPARISON: Mammography: Comparison is made with available priors TECHNIQUE: Digital breast mammography with tomosynthesis is performed in both the craniocaudal and mediolateral oblique views along with computer-aided detection (CAD). FINDINGS: There are scattered areas of fibroglandular density (ACR BI-RADS breast composition Category b). There are no significant masses, abnormal calcifications, or other abnormalities. MM/MM tomosynthesis screening BI IMPRESSION: No mammographic evidence of malignancy. ASSESSMENT: BI-RADS BI-RADS 1 - Negative RECOMMENDATION: Routine annual mammography screening. 1 year F/U This examination should not preclude the clinical evaluation of a suspicious palpable abnormality. This patient's information was entered into a reminder system with a target due date for their next mammogram. Electronically signed by: Regla Clark DO 05/12/2024 03:09 PM TOMI
== END 2024-05-09 14:28 | disposition home or self-care (01) ==
LOC: HO.MAMMO 14:27
PROVIDERS: PCP Family Medicine; Visit Provider Family Medicine
DX: Z12.31 Encounter for screening mammogram for malignant neoplasm of breast (principal)
CPT/HCPCS: 77063; 77067

== ENCOUNTER → 2024-05-09 14:45 | Outpatient (BNV) | payer OTHER, SELFPAY | PROVIDERS: PCP Family Medicine; Visit Provider Internal Medicine | DX: Z12.31 Encounter for screening mammogram for malignant neoplasm of breast (principal) | CPT/HCPCS: 77063; 77067 ==

== ENCOUNTER 2024-08-28 07:33 | Emergency (ER) | payer OTHER, SELFPAY ==
--- NOTE | ~2024-08-28 | XR_ITS ---
EXAMINATION: XR CHEST CLINICAL INFORMATION: Cough, CP COMPARISON: X-ray dated August 08, 2022. TECHNIQUE: 2 views of the chest were obtained. FINDINGS: Prominence of the interstitial lung markings in the inferior right perihilar region. No gross consolidation pleural effusion or pneumothorax. Cardiomediastinal silhouette is normal size. Multilevel thoracic spondylosis. XR/XR chest 2V IMPRESSION: Consider acute small airway inflammatory versus infectious processes, inferior right perihilar region. Electronically signed by: Rui Saldivar MD 08/28/2024 08:19 AM NATAL[facility]
--- NOTE | 2024-08-28 07:34 | ECG_ITS ---
Test Reason : CP Blood Pressure : */* mmHG Vent. Rate : 91 BPM Atrial Rate : 91 BPM P-R Int : 134 ms QRS Dur : 76 ms QT Int : 342 ms P-R-T Axes : 20 57 -14 degrees QTcB Int : 420 ms Normal sinus rhythm ST & T wave abnormality, consider inferior ischemia ST & T wave abnormality, consider anterolateral ischemia Abnormal ECG When compared with ECG of 08-Aug-2022 15:52, Vent. rate has increased by 30 bpm T wave inversion now evident in Lateral leads Referred By: Generic ED Physician Electronically Signed By: Shawn Alan
--- OUTSIDE RECORDS SUMMARY | 2024-08-28 07:36 | XMS_ITS | Encounter Summary ---
Author Name [place] Address [address] [place] [address] Care Team Providers Care Production Pattern Maker Name Role Phone EDDIE CHESTER Primary Care Provider Alexei meraz Insurance Providers: All historical and current Section Date Range: From patient's date of to the date document was created. This section includes the names of all active insurance providers for the patient. Insurance Provider Type of Coverage Plan Name Start of Policy Coverage End of Policy Coverage Group Number Member ID Insurance Provider's Telephone Number Policy Gastelum's Name Patient's Relationship to Policy Gastelum [employer] PRESCRIPT ION [id number] 1 Aug 13, 2017 [id number] LAKESHA CALLAWAY PATIENT [employer] PRESCRIPT ION [id number] 1 Aug 13, 2017 [id number] LAKESHA CALLAWAY PATIENT [employer] BIN [id number] PRESCRIPT ION [facility] HP Jun 13, 2014 RXTHP [id number] [phone] LAKESHA CALLAWAY PATIENT [employer] RX PRESCRIPT ION RX Aug 13, 2022 THPRX [id number] [phone] LAKESHA CALLAWAY PATIENT [employer] RX PRESCRIPT ION RX Aug 13, 2022 THPRX [id number] LAKESHA CALLAWAY PATIENT [facility] POINT [facility] SERV[facility] PL[facility] Jan 11, 2019 [id number] [phone] LAKESHA CALLAWAY PATIENT [facility] POINT OF SERVICE Aug 13, 2017 [id number] LAKESHA CALLAWAY PATIENT [facility] Aug 13, 2017 [id number] [phone] LAKESHA CALLAWAY PATIENT [facility] BRIGH XIOMY HERMOSILLON E Aug 13, 2017 [id number] [phone] LAKESHA CALLAWAY PATIENT [facility] Aug 13, 2017 [facility] [id number] NILTONLAKESHA PATIENT [facility] BHAVESH KATHIA(W NR) Aug 13, 2017 [facility] [id number] LAKESHA CALLAWAY PATIENT [facility]P BOB HERMOSILLO Aug 13, 2017 [facility] [id number] LAKESHA CALLAWAY PATIENT [facility] (WNR) MARY JOA RE(WN R) Aug 13, 2017 (WNR) [id number] LAKESHA CALLAWAY PATIENT Selected Encounter This section includes the information on record at [place] for the Encounter. Date/Time Encounter Type Encounter Description Reason Provider Source Nov 19, 2023 07:18 AM Outpatient Encounter PRIMARY CARE/MEDICINE BERENICE LINTON Encounter Template Text not used by [place] Plan of Treatment: Future Appointments (+ 6 months) and Future Tests (+/- 45 days) The Plan of Treatment section includes future care activities for the patient from all [place] [facility]. This section includes future appointments and future orders which are active, pending or scheduled. Future Appointments This section includes appointments that were scheduled to occur 6 months from the date of the Encounter, up to a maximum of 20 appointments. The data comes from all [place] treatment facilities. Appointment Date/Time Appointment Type Appointme nt Facility Name Feb 19, 2024 11:00 AM AMBULATORY - MEDICINE [facility] Apr 25, 2024 11:00 AM AMBULATORY MEDICINE [facility] May 09, 2024 02:45 PM AMBULATORY - MEDICINE [facility] Social History: Smoking Status (Most current) and Tobacco Use (All prior to encounter date) This section includes the most current, and the historical, smoking and tobacco- related health factors from the [place] facility where the Encounter took place. Current Smoking Status This section includes the most current smoking, or tobacco-related health factor, from the [place] facility where the Encounter took place. Date/Time Current Smoking Status Comment Susana ity Jul 14, 2022 01:00 PM VA-TOBACCO NEVER USED [facility] Tobacco Use History This section includes a history of the smoking, or tobacco-related health factors, that were collected on or before the date of the Encounter. The data comes from the [place] facility where the Encounter took place. Date/Time Smoking Status/Tobacco Use Comment F acility Feb 04, 2021 01:30 PM [facility] Jul 29, 2018 12:31 PM [facility] Aug 17, 2017 03:43 PM LIFETIME NON-TOBACCO USER [place] [facility] [facility] [facility] Apr 12, 2016 08:58 AM QUIT TOBACCO USE > [facility] Feb 08, 2015 08:25 AM QUIT TOBACCO USE > [facility] Encounter Notes: All associated encounter notes This section contains the clinical notes associated to the Encounter. Date/Time Encounter Note(s) Provider Source Nov 19, 2023 07:18 AM PRIMARY CARE [employer] E MESSAGING: [facility] TITLE: PRIMARY CARE SECURE MESSAGING STANDARD TITLE: PRIMARY CARE SECURE MESSAGING DATE OF NOTE: NOV 19, 2023@07:18 ENTRY DATE: NOV 19, 2023@08:18:42 AUTHOR: BERENICE LINTON EXP COSIGNER: URGENCY: STATUS: COMPLETED ------Original Message ------- Sent: 11/16/2023 05:53 AM ET From: LEILANI CALLAWAY To: Rich CHESTER_PRIMARY CARE_[facility] Subject: Medication:Meds Please refill my trazadone and klonopin and have sent to my address on record thank you! ------Original Message ------- Sent: 11/19/2023 08:18 AM ET From: BERENICE LINTON To: LEILANI CALLAWAY Subject: Medication:Meds Hi Leilani, I will ask Dr. Chester to renew your medications for mailing. Take good care, Berenice Linton, day care attendant/Women's health team nurse /es/ BERENICE LINTON, MSN, RN, CNL PRIMARY CARE TEAM NURSE Signed: 11/19/2023 08:18 Receipt Acknowledged By: 11/19/2023 18:08 /renetta/ EDDIE CHESTER M.D. PHYSICIAN BERENICE LINTON [facility]
--- OUTSIDE RECORDS SUMMARY | 2024-08-28 07:36 | XMS_ITS | Encounter Summary ---
Author Name [place] Address [address] [place] [address] Care Team Providers Care Family Program Specialist Name Role Phone BERTEVITA EDDIE Primary Care Provider Alexei meraz Insurance Providers: [...] PRESCRIPT ION [id number] 1 Aug 13, 2017 [id number] LAKESHA CALLAWAY PATIENT [employer] PRESCRIPT ION [id number] 1 Aug 13, 2017 [id number] [phone] LAKESHA CALLAWAY PATIENT [facility] BIN [id number] PRESCRIPT ION [facility] Jun 13, 2014 RXTHP [id number] [phone] LAKESHA CALLAWAY PATIENT [facility] RX PRESCRIPT ION RX Aug 13, 2022 THPRX [id number] LAKESHA CALLAWAY PATIENT [employer] RX PRESCRIPT ION RX Aug 13, 2022 THPRX [id number] LAKESHA CALLAWAY PATIENT [facility] POINT [facility] SERVICE [facility] Jan 11, 2019 [id number] LAKESHA CALLAWAY PATIENT [facility] POINT [facility] SERVICE Aug 13, 2017 [id number] [phone] LAKESHA CALLAWAY [facility] Aug 13, 2017 [id number] LAKESHA CALLAWAY PATIENT [facility] Aug 13, 2017 [facility] [id number] [phone] LAKESHA CALLAWAY H PATIENT [facility] BOB Meraz Aug 13, 2017 [id number] [phone] NILTONLAKESHA H PATIENT [facility] PL[facility] BHAVESH BAE(W NR) Aug 13, 2017 [facility] [id number] NILTONLAKESHA [place] PATIENT [facility] PL[facility] USP BOB HERMOSILLO Aug 13, 2017 [facility] [id number] [phone] LAKESHA CALLAWAY PATIENT [facility] (WNR) TRICA RE(WN R) Aug 13, 2017 (WNR) [id number] LAKESHA CALLAWAY PATIENT Selected Encounter This section includes the information on record at [place] for the Encounter. Date/Time Encounter Type Encounter Description Reason Pro vider Source Oct 02, 2023 09:46 AM Outpatient Encounter OPTOMETRY IHE Encounter Template Text not used by [place] Plan of Treatment: Future Appointments (+ 6 months) and Future Tests (+/- 45 days) The Plan of Treatment section includes future care activities for the patient from all [place] treatmentfacilities. This section includes future appointments and future orders which are active, pending or scheduled. Future Appointments This section includes appointments that were scheduled to occur 6 months from the date of the Encounter, up to a maximum of 20 appointments. The data comes from all [place] treatment facilities. Appointment Date/Time Appointment Type Appointme nt Facility Name Feb 19, 2024 11:00 AM AMBULATORY - [place]ICINE [place] [facility] Social History: Smoking Status (Most current) and Tobacco Use (All prior to encounter date) This section includes the most current, and the historical, smoking and tobacco- related health factors from the [facility] facility where the Encounter took place. Current Smoking Status This section includes the most current smoking, or tobacco-related health factor, from the [facility] facility where the Encounter took place. Date/Time Current Smoking Status Comment Facil ity Jul 14, 2022 01:00 PM [facility] Tobacco Use History This section includes a history of the smoking, or tobacco-related health factors, that were collected on or before the date of the Encounter. The data comes from the [place] facility where the Encounter took place. Date/Time Smoking Status/Tobacco Use Comment F acility Feb 04, 2021 01:30 PM [facility]ACCO [facility] Jul 29, 2018 12:31 PM VA-TOBACCO NEVER USED [facility] [place] [facility] Aug 17, 2017 03:43 PM LIFETIME NON-TOBACCO USER [place] [facility] Apr 12, 2016 08:58 AM QUIT TOBACCO USE > 7 YEARS AGO [facility] [place] [facility] Feb 08, 2015 08:25 AM QUIT [facility]BACCO [facility] Encounter Notes: All associated encounter notes This section contains the clinical notes associated to the Encounter. Date/Time Encounter Note(s) Provider Source Oct 02, 2023 09:46 AM ADMINISTRATIVE NOT E: LOCAL TITLE: ADMINISTRATIVE RECALL NOTE STANDARD TITLE: ADMINISTRATIVE NOTE DATE OF NOTE: OCT 02, 2023@09:46 ENTRY DATE: OCT 02, 2023@09:46:51 AUTHOR: GAYE BRIZUELA EXP COSIGNER: URGENCY: STATUS: COMPLETED RTC orders: Unable to contact patient: Attempts to contact: 1st attempt: Left voicemail 2nd attempt: Letter mailedDisposition onOct 3rd attempt: 4th attempt: /renetta/ GAYE BRIZUELA [employer] Signed: 10/02/2023 09:47 GAYE BRIZUELA [facility]
--- OUTSIDE RECORDS SUMMARY | 2024-08-28 07:36 | XMS_ITS | Encounter Summary ---
Author Name [place] Organization [place] Address [address] [place] [address] Care Team Providers Care Customer Advisor Name Role Phone EDDIE CHESTER Primary Care [...] PRESCRIPT ION [id number] 1 Aug 13, 2017 [id number] [phone] LAKESHA CALLAWAY PATIENT [place] PRESCRIPT ION [id number] 1 Aug 13, 2017 [id number] [phone] LAKESHA CALLAWAY PATIENT [facility] BIN [id number] PRESCRIPT ION [facility] HP Jun 13, 2014 RXTHP [id number] [phone] LAKESHA CALLAWAY PATIENT OPTUM RX PRESCRIPT ION RX Aug 13, 2022 THPRX [id number] LAKESHA CALLAWAY PATIENT OPTUM RX PRESCRIPT ION RX Aug 13, 2022 THPRX [id number] [phone] LAKESHA CALLAWAY PATIENT [facility] POINT OF SERVICE [facility] PLAN Jan 11, 2019 [id number] [phone] LAKESHA CALLAWAY PATIENT [facility] POINT OF SERVICE Aug 13, 2017 [id number] [phone] LAKESHA CALLAWAY PATIENT [facility] Aug 13, 2017 [id number] LAKESHA CALLAWAY PATIENT [facility] HEALTH PLAN SANDRAIGH XIOMY HERMOSILLON E Aug 13, 2017 [id number] LAKESHA CALLAWAY PATIENT [facility] HEALTH [facility]AN USFHP Aug 13, 2017 [facility] [id number] NILTONLAKESHA H PATIENT [facility] PLAN BHAVESH KATHIA(W NR) Aug 13, 2017 [facility] [id number] NILTONLAKSEHA ALSTON PATIENT [facility] PLAN USP BOB HERMOSILLO Aug 13, 2017 [facility] [id number] [facility] (WNR) TRICA RE(WN R) Aug 13, 2017 (WNR) [id number] LAKESHA CALLAWAY PATIENT Selected Encounter This section includes the information on record at [place] for the Encounter. Date/Time Encounter Type Encounter Description Reason Provider Source Sep 20, 2023 11:48 AM Outpatient Encounter PRIMARY CARE/MEDICINE BERENICE LINTON Encounter Template Text not used by [place] Plan of Treatment: Future Appointments (+ 6 months) and Future Tests (+/- 45 days) The Plan of Treatment section includes future care activities for the patient from all [place] treatmentfacilities. This section includes future appointments and future orders which are active, pending or scheduled. Future Appointments This section includes appointments that were scheduled to occur 6 months from the date of the Encounter, up to a maximum of 20 appointments. The data comes from all [place] treatment facilities. Appointment Date/Time Appointment Type Appointme nt Facility Name Sep 24, 2023 09:30 AM AMBULATORY - MEDICINE [facility] Feb 19, 2024 11:00 AM AMBULATORY MEDICINE [facility] Social History: Smoking Status (Most current) and Tobacco Use (All prior to encounter date) This section includes the most current, and the historical, smoking and tobacco- related health factors from the VA facility where the Encounter took place. Current Smoking Status This section includes the most current smoking, or tobacco-related health factor, from the [place] facility where the Encounter took place. Date/Time Current Smoking Status Comment Susana ity Jul 14, 2022 01:00 PM VA-TOBACCO NEVER USED [facility] Tobacco Use History This section includes a history of the smoking, or tobacco-related health factors, that were collected on or before the date of the Encounter. The data comes from the [place] facility where the Encounter took place. Date/Time Smoking Status/Tobacco Use Comment F acility Feb 04, 2021 01:30 PM VA-TOBACCO NEVER USED [place] [facility] [place] [facility] Jul 29, 2018 12:31 PM VA-TOBACCO NEVER USED IN [facility] [place] [place] [facility] Aug 17, 2017 03:43 PM LIFETIME NON-TOBACCO USER IN [facility] [place] [facility] Apr 12, 2016 08:58 AM QUIT TOBACCO USE > 7 YEARS AGO IN [facility] [place] [place] [facility] Feb 08, 2015 08:25 AM QUIT TOBACCO USE > [facility] Encounter Notes: All associated encounter notes This section contains the clinical notes associated to the Encounter. Date/Time Encounter Note(s) Provider Source Sep 20, 2023 11:48 AM PRIMARY CARE Lieferheld E MESSAGING: LOCAL TITLE: PRIMARY CARE SECURE MESSAGING STANDARD TITLE: PRIMARY CARE SECURE MESSAGING DATE OF NOTE: SEP 20, 2023@11:48 ENTRY DATE: SEP 20, 2023@11:48:21 AUTHOR: BERENICE LINTON EXP COSIGNER: URGENCY: STATUS: COMPLETED ------Original Message ------- Sent: 09/19/2023 04:28 PM ET From: LEILANI CALLAWAY To: *Rich WLATER_PRIMARY CARE_[facility] Subject: Medication:Flonase Please renew my Flonase please, for my four seasons seasonal allergies:) ------Original Message ------- Sent: 09/20/2023 11:48 AM ET From: BERENICE LINTON To: LEILANI CALLAWAY Subject: Medication:Flonase Elian Linares, I will forward your medication request to Dr. Chester for renewal and mailing. Take good care, Berenice Linton, long term acute care registered nurse/Women's health team nurse /es/ BERENICE LINTON, MSN, RN, CNL PRIMARY CARE TEAM NURSE Signed: 09/20/2023 11:48 Receipt Acknowledged By: 04/23/2024 13:16 /renetta/ EDDIE CHESTER M.D. PHYSICIAN BERENICE LINTON [facility]
--- OUTSIDE RECORDS SUMMARY | 2024-08-28 07:36 | XMS_ITS ---
Author Name Department of [place] Organization [facility] [place] Address [address] [place] [address] Care Team Providers Care Conference Manager Name Role Phone EDDIE DREW Primary Care Provider Unavailkita e Insurance Providers: All historical and current Section [...] PRESCRIPT ION RX730 1 Aug 13, 2017 [id number] [phone] LAKESHA CALLAWAY PATIENT [place] PRESCRIPT ION [id number] 1 Aug 13, 2017 [id number] LAKESHA CALLAWAY PATIENT [place] BIN 752330 PRESCRIPT ION [facility] HP Jun 13, 2014 RXTHP [id number] [phone] LAKESHA CALLAWAY PATIENT OPTUM RX PRESCRIPT ION RX Aug 13, 2022 THPRX [id number] LAKESHA CALLAWAY PATIENT OPTUM RX PRESCRIPT ION RX Aug 13, 2022 THPRX [id number] LAKESHA CALLAWAY PATIENT [facility] POINT OF SERVICE [facility] PLAN Jan 11, 2019 [id number] [phone] LAKESHA CALLAWAY PATIENT [facility] POINT OF SERVICE Aug 13, 2017 [id number] [phone] LAKESHA CALLAWAY [facility] Aug 13, 2017 [id number] LAKESHA CALLAWAY PATIENT [facility] HEALTH PLAN [facility] E Aug 13, 2017 [id number] LAKESHA CALLAWAY PATIENT [facility] HEALTH PLAN USFHP Aug 13, 2017 [facility] [id number] [phone] LAKESHA CALLAWAY PATIENT [facility] PLAN USFAGerald KATHIA(W NR) Aug 13, 2017 [facility] [id number] LAKESHA CALLAWAY PATIENT [facility] PLAN USP BOB HERMOSILLO Aug 13, 2017 [facility] [id number] LAKESHA CALLAWAY PATIENT [facility] (WNR) TRICA RE(WN R) Aug 13, 2017 (WNR) [id number] LAKESHA CALLAWAY PATIENT Selected Encounter This section includes the information on record at [place] for the Encounter. Date/Time Encounter Type Encounter Description Reason Provider Source Sep 24, 2023 09:30 AM INTRM OPH EXAM EST PATIENT OPTOMETRY ICD-10-CM H53.71 Glare sensitivity ARMIDA GUY [facility] Encounter Template Text not used by [place] Assessments - Encounter Diagnoses This section includes the primary and secondary diagnoses documented for the Encounter. Date/Time Primary/Secondary Diagnosis Diagnosis Name Provider Source Sep 24, 2023 10:11 AM PRIMARY Glare sensitivity ARMIDA GUY [facility] Sep 24, 2023 10:11 AM SECONDARY Visual discomfort, bilateral ARMIDA GUY [facility] Plan of Treatment: Future Appointments (+ 6 months) and Future Tests (+/- 45 days) The Plan of Treatment section includes future care activities for the patient from all [place] treatmentfacilities. This section includes future appointments and future orders which are active, pending or scheduled. Future Appointments This section includes appointments that were scheduled to occur 6 months from the date of the Encounter, up to a maximum of 20 appointments. The data comes from all [place] treatment facilities. Appointment Date/Time Appointment Type Appointme nt Facility Name Feb 19, 2024 11:00 AM [facility] Social History: Smoking Status (Most current) and Tobacco Use (All prior to encounter date) This section includes the most current, and the historical, smoking and tobacco- related health factors from the [place] facility where the Encounter took place. Current Smoking Status This section includes the most current smoking, or tobacco-related health factor, from the [place] facility where the Encounter took place. Date/Time Current Smoking Status Comment Facil ity Jul 14, 2022 01:00 PM [facility]-TOBACCO [facility] Tobacco Use History This section includes a history of the smoking, or tobacco-related health factors, that were collected on or before the date of the Encounter. The data comes from the [place] facility where the Encounter took place. Date/Time Smoking Status/Tobacco Use Comment F acgianfranco Feb 04, 2021 01:30 PM [facility]BACCO [facility] Jul 29, 2018 12:31 PM VA-TOBACCO [facility] US[facility] Aug 17, 2017 03:43 PM LIFETIME NON-TOBACCO USER [place] [facility] [place] [facility] Apr 12, 2016 08:58 AM QUIT TOBACCO USE > 7 YEARS AGO [facility] Feb 08, 2015 08:25 AM QUIT TOBACCO USE > 7 [facility] AGO [facility] Encounter Notes: All associated encounter notes This section contains the clinical notes associated to the Encounter. 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 02/08/2015 EDDIE DREW Gastroesophageal reflux disease 530 02/08/2015 EDDIE DREW Eating disorder F50.2 04/12/2016 VIKIEDDIE Chronic low back pain 724.2 02/08/2015 EDDIE DREW Bilateral hearing loss H91.90 12/03/2017 EDDIE DREW 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 04/12/2016 EDDIE DREW Temporomandibular joint disorder 52 02/08/2015 EDDIE DREW Urge incontinence of urine N39.41 04/12/2016 EDDIE DREW Chronic post-traumatic stress disor 04/12/2016 EDDIE DREW Medications (VA): Active Outpatient Medications (including Supplies): Active Outpatient Medications Status 1) ESTRADIOL 0.025MG/DAY ([id number]) APPLY 1 PATCH ACTIVE TO SKIN TWO TIMES A WEEK TO REPLACE [place] PATCH EQUIVALENT 2) FLUTICASONE PROP 50MCG 120D NASAL INHL INSTILL 2 ACTIVE SPRAYS INTO EACH NOSTRIL ONCE DAILY FOR NASAL IRRITATION/INFLAMMATION 3) PROGESTERONE 100MG CAP TAKE ONE CAPSULE BY MOUTH AT ACTIVE BEDTIME FOR MENOPAUSE 4) TRAZODONE HCL 100MG TAB TAKE ONE TABLET BY MOUTH AT ACTIVE BEDTIME INCREASED DOSE Active Non-VA Medications Status 1) Non-VA CHOLECALCIF 25MCG (D3-1,000UNIT) TAB 125MCG BY ACTIVE MOUTH ONCE DAILY 2) Non-VA GRAPE SEED CAP/TAB ONE BY MOUTH ONCE DAILY ACTIVE 3) Non-VA MULTIVITAMIN/MINERALS CAP/TAB 1 TABLET BY ACTIVE MOUTH ONCE DAILY 4) Non-VA PSYLLIUM ORAL PWD 1 TEASPOONFUL BY MOUTH ONCE ACTIVE DAILY 5) Non-VA TABLET CUTTER MISCELLANEOUS TUMERIC ACTIVE DIRECTED ONCE DAILY 9 Total Medications Allergies: TETRACYCLINE, SULFA DRUGS, BEE STINGS, AUGMENTIN S: 53-year-old female is in for follow-up with a history of benign pituitary adenoma and complaint of blurred vision while driving at night. She is status post LASiK surgery and experiences the associated aberrations from LASIK procedure at nighttime. (-) Pain: (+) RUVALCABA: Tension Type and has had MRIs for Pitutary Ademona in 2013 (-) Diplopia: (+) Flashes: Intermittent and seen temporally (-) Floaters: (-) Amaurosis Fugax/Tia's: (-) Eye Injury: (-) Eye Surgery:LASIK 2000 (-) TBI O: Visual acuity without correction was 20/20 OD and 20/20 - OS. Pupils were equal and round and reactive to light with no afferent defect. Extraocular muscles were intact and facial confrontation angel were full. Lids and lashes were clear both eyes. Corneas and conjunctiva were clear both eyes. Anterior chambers were deep clear and quiet with open angles. Iris was flat both eyes. Lenses were clear. Subjective Refraction: OD: + 0.75-0.50 X 145 20/20 OS: PL -0.25 X 58 20/20 Add: + 1.75 Intraocular pressures at 9:50 AM were 15 mmHg OU. Fundi were reviewed with 90 diopter lens through nondilated pupils Vitreous was clear OU. Approximately 60% horizontal and vertical cupping was seen OU with healthy rims and margins. No notches or hemorrhages were seen OU. Normal pigmentary architecture of the macula was seen with a two third artery to vein ratio. A: History of pituitary adenoma. Low risk open-angle glaucoma suspect secondary to asymmetric cupping. Hyperopia. Presbyopia P: Ordered separate distance and reading glasses at the patient's request. Return for threshold angel secondary to pituitary adenoma and moderate asymmetric cupping. The patient will return in 12 months or sooner if any problems arise, pending threshold angel results. Patient Education: Glaucoma: Patient was educated regarding glaucoma/glaucoma suspect as well as the natural history of this diagnosis including prognosis. Stress importance of compliance and persistency with glaucoma medication when prescribed, timely follow up as well as the role of ancillary testing. Exclusion criteria for ancillary testing include significantly reduced acuity, mental status changes affecting the patient's ability to attend to the test or other physical limitations that would prohibit the patient's ability to participate in testing. Medication Reconciliation: Outpatient: Has the patient been taking medications as documented in the EMLR? YES: The patient has been taking medications as documented in the EMLR. Essential Medication List for Review used to complete this medication reconciliation. INCLUDED IN THIS LIST: Alphabetical list of active outpatient prescriptions dispensed from this [place] (local) and dispensed from another [place] or [facility] facility (remote) as well as inpatient orders (local, pending and active), local clinic medications, locally documented non-VA medications, and local prescriptions that have or been discontinued in the past 90 days. - All changes in medications, including all non-VA/Herbal/OTC medications were entered into CPRS. - If there were any medications the patient should no longer take, they were discontinued. - The patient/caregiver was instructed to update this list, discard old lists, and take this list to the next appointment, whether with a VA or non-VA provider. /renetta/ ARMIDA GUY STAFF SUPPLEMENTAL MANAGER Signed: 09/24/2023 10:11 ARMIDA GUY [place] [facility]
--- OUTSIDE RECORDS SUMMARY | 2024-08-28 07:36 | XMS_ITS | Encounter Summary ---
Author Name Department [place] Organization [place] Address [address] [place] [address] Care Team Providers Care Charge Weigher Name Role Phone EDDIE CHESTER Primary Care [...] PRESCRIPT ION RX730 1 Aug 13, 2017 [id number] [phone] LAKESHA CALLAWAY PATIENT [place] PRESCRIPT ION RX730 1 Aug 13, 2017 [id number] [phone] LAKESHA CALLAWAY PATIENT [place] BIN [id number] PRESCRIPT ION [facility] HP Jun 13, 2014 RXTHP [id number] [phone] LAKESHA CALLAWAY PATIENT OPTUM RX PRESCRIPT ION RX Aug 13, 2022 THPRX [id number] LAKESHA CALLAWAY PATIENT OPTUM RX PRESCRIPT ION RX Aug 13, 2022 THPRX [id number] [phone] LAKESHA CALLAWAY PATIENT [facility] POINT OF SERVICE [facility] PLAN Jan 11, 2019 [id number] [phone] LAKESHA CALLAWAY PATIENT [facility] POINT OF SERVICE Aug 13, 2017 [id number] [phone] LAKESHA CALLAWAY PATIENT [facility] Aug 13, 2017 [id number] LAKESHA CALLAWAY PATIENT [facility] USFHP Aug 13, 2017 USP [id number] LAKESHA CALLAWAY PATIENT [facility] PLAN BOB Meraz Aug 13, 2017 [id number] [phone] LAKESHA CALLAWAY PATIENT [facility] PLAN BHAVESH KATHIA(W NR) Aug 13, 2017 [facility] [id number] [phone] LAKESHA CALLAWAY PATIENT [facility] PLAN USP BOB HERMOSILLO Aug 13, 2017 [facility] [id number] LAKESHA CALLAWAY PATIENT [facility] (WNR) TRICA RE(WN R) Aug 13, 2017 (WNR) [id number] LAKESHA CALLAWAY PATIENT Selected Encounter This section includes the information on record at [place] for the Encounter. Date/Time Encounter Type Encounter Description Reason Pro vider Source Nov 19, 2023 06:10 PM Outpatient Encounter PRIMARY CARE/MEDICINE I[facility] Encounter Template Text not used by [place] Plan of Treatment: Future Appointments (+ 6 months) and Future Tests (+/- 45 days) The Plan of Treatment section includes future care activities for the patient from all [place] [facility]. This section includes future appointments and future orders which are active, pending or scheduled. Future Appointments This section includes appointments that were scheduled to occur 6 months from the date of the Encounter, up to a maximum of 20 appointments. The data comes from all [place] treatment facilities. Appointment Date/Time Appointment Type Appointme nt Facility Name Feb 19, 2024 11:00 AM AMBULATORY - MEDICINE [facility] Apr 25, 2024 11:00 AM AMBULATORY MEDICINE [facility] May 09, 2024 02:45 PM AMBULATORY - MEDICINE [facility] Social History: Smoking Status (Most current) and Tobacco Use (All prior to encounter date) This section includes the most current, and the historical, smoking and tobacco- related health factors from the [place] facility where the Encounter took place. Current Smoking Status This section includes the most current smoking, or tobacco-related health factor, from the [place] facility where the Encounter took place. Date/Time Current Smoking Status Comment Susana ity Jul 14, 2022 01:00 PM [facility]-TOBACCO [facility] Tobacco Use History This section includes a history of the smoking, or tobacco-related health factors, that were collected on or before the date of the Encounter. The data comes from the [place] facility where the Encounter took place. Date/Time Smoking Status/Tobacco Use Comment F acility Feb 04, 2021 01:30 PM [facility]-TO[facility]ACCO [facility] [place] [facility] Jul 29, 2018 12:31 PM VA-TOBACCO [facility] [place] [facility] Aug 17, 2017 03:43 PM LIFETIME NON-TOBACCO USER [place] [facility] [place] [facility] Apr 12, 2016 08:58 AM QUIT TOBACCO USE > 7 YEARS AGO [facility] Feb 08, 2015 08:25 AM QUIT TOBACCO USE > 7 YEARS AGO [facility] Encounter Notes: All associated encounter notes This section contains the clinical notes associated to the Encounter. Date/Time Encounter Note(s) Provider Source Nov 19, 2023 06:11 PM ACCOUNTING OF DISC LOSURES NOTE: LOCAL TITLE: STATE PRESCRIPTION DRUG MONITORING PROGRAM STANDARD TITLE: ACCOUNTING OF DISCLOSURES NOTE DATE OF NOTE: NOV 19, 2023@18:11:29 ENTRY DATE: NOV 19, 2023@18:11:29 AUTHOR: EDDIE CHESTER EXP COSIGNER: URGENCY: STATUS: COMPLETED This PDMP query was submitted by Eddie Chester MD. The clinical justification for this PDMP query is to review controlled substances prescribed outside of the [place], and any additional information that may become available, as an important component of standard clinical care, and in accordance with [facility] policy. Patient information was shared with the PDMP Appriss [place]. No prescription(s) for controlled substances outside the [place] were found in the last 90 days. refilling clonazepam /es/ EDDIE CHESTER M.D. PHYSICIAN Signed: 11/19/2023 18:11 EDDIE CHESTER [facility]
--- OUTSIDE RECORDS SUMMARY | 2024-08-28 07:36 | XMS_ITS | Encounter Summary ---
Author Name Department [place] Organization Department of [facility] [place] [facility] ([place]) Address [address] [place] [address] Care Team Providers Care Dry Heat Cabinet Attendant Name Role Phone EDDIE DREW Primary Care Provider Unavailabl e Insurance Providers: All historical and current [...] PRESCRIPT ION RX730 1 Aug 13, 2017 [id number] LAKESHA CLALAWAY PATIENT [place] PRESCRIPT ION RX730 1 Aug 13, 2017 [phone] LAKESHA CALLAWAY PATIENT [facility] BIN [id number] PRESCRIPT ION [facility] HP Jun 13, 2014 RXTHP [id number] [phone] LAKESHA CALLAWAY PATIENT OPTUM RX PRESCRIPT ION RX Aug 13, 2022 THPRX [id number] LAKESHA CALLAWAY PATIENT OPTUM RX PRESCRIPT ION RX Aug 13, 2022 THPRX [id number] LAKESHA CALLAWAY PATIENT [facility] POINT OF SERVICE [facility] PLAN Jan 11, 2019 [id number] [phone] LAKESHA CALLAWAY PATIENT [facility] POINT OF SERVICE Aug 13, 2017 [id number] LAKESHA CALLAWAY [facility] Aug 13, 2017 [id number] LAKESHA CALLAWAY PATIENT [facility] HE[facility] PLAN BOB Argueta Aug 13, 2017 [id number] [phone] LAKESHA CALLAWAY PATIENT [facility] PL[facility] USP Aug 13, 2017 [facility] [id number] NILTONLAKESHA PATIENT [facility] BHAVESH KATHIA(W NR) Aug 13, 2017 [facility] [id number] LAKESHA CALLAWAY PATIENT [facility] USP BOB HERMOSILLO Aug 13, 2017 [facility] [id number] LAKESHA CALLAWAY PATIENT [facility] (WNR) TRICA RE(WN R) Aug 13, 2017 (WNR) [id number] LAKESHA CALLAWAY PATIENT Selected Encounter This section includes the information on record at [place] for the Encounter. Date/Time Encounter Type Encounter Description Reason Provider Source Sep 25, 2023 12:07 PM FIT SPECTACLES MONOFOCAL OPTOMETRY ICD-10-CM Z46.0 Encounter for fit/adjst of spectacles and contact lenses ARMIDA GUY Encounter Template Text not used by [place] Assessments - Encounter Diagnoses This section includes the primary and secondary diagnoses documented for the Encounter. Date/Time Primary/Secondary Diagnosis Diagnosis Name Provider Source Sep 25, 2023 12:07 PM PRIMARY Encounter for fit/adjst of spectacles and contact lenses DEAN PETTIT [facility] Plan of Treatment: Future Appointments (+ 6 months) and Future Tests (+/- 45 days) The Plan of Treatment section includes future care activities for the patient from all [place] treatmentfacilities. This section includes future appointments and future orders which are active, pending or scheduled. Future Appointments This section includes appointments that were scheduled to occur 6 months from the date of the Encounter, up to a maximum of 20 appointments. The data comes from all [place] treatment facilities. Appointment Date/Time Appointment Type Appointme nt Facility Name Feb 19, 2024 11:00 AM AMBULATORY - MEDICINE [facility] Social History: Smoking Status (Most current) and Tobacco Use (All prior to encounter date) This section includes the most current, and the historical, smoking and tobacco- related health factors from the [place] facility where the Encounter took place. Current Smoking Status This section includes the most current smoking, or tobacco-related health factor, from the [place] facility where the Encounter took place. Date/Time Current Smoking Status Comment Facil ity Jul 14, 2022 01:00 PM VA-TOBACCO NEVER USED [facility] Tobacco Use History This section includes a history of the smoking, or tobacco-related health factors, that were collected on or before the date of the Encounter. The data comes from the [place] facility where the Encounter took place. Date/Time Smoking Status/Tobacco Use Comment [place] [facility] Feb 04, 2021 01:30 PM VA-TOBACCO [facility] Jul 29, 2018 12:31 PM [facility] Aug 17, 2017 03:43 PM LIFETIME NON-TOBACCO USER [facility] Apr 12, 2016 08:58 AM QUIT TOBACCO USE > 7 YEARS AGO [facility] Feb 08, 2015 08:25 AM QUIT TOBACCO USE > 7 YEARS AGO [facility] Encounter Notes: All associated encounter notes This section contains the clinical notes associated to the Encounter. Date/Time Encounter Note(s) Provider Source Sep 25, 2023 12:07 PM OPTOMETRY NOTE: LOCAL TITLE: OPTOMETRY NOTE STANDARD TITLE: OPTOMETRY NOTE DATE OF NOTE: SEP 25, 2023@12:07 ENTRY DATE: SEP 25, 2023@12:07:46 AUTHOR: EDDIE HAGEN COSIGNER: URGENCY: STATUS: COMPLETED OPTOMETRY NOTE Has ADDENDA dvo The quote provided below is for informational purposes only. Please verify prior to the creation of a purchase order. LEILANI CALLAWAY 6085 RX INFORMATION OD +0.75 -0.50 X145 Add:0.00 Pzm:0.00 Dir: Prz2:0.00 Dir2: OS 0.00 -0.25 X58 Add:0.00 Pzm:0.00 Dir: Prz2:0.00 Dir2: FITTING INFORMATION FPD: NPD: Mccracken:R:30 L:33.5 SEG HT:R: L: Tint:None Shade:None VA Billable Items FRAME: NYASIA FRENCH [id number] Right Lens: POLY SINGLE VISION 1.586 POLY Left Lens: POLY SINGLE VISION 1.586 POLY KLEAR ANTI-REFLECTIVE COATING nvo The quote provided below is for informational purposes only. Please verify prior to the creation of a purchase order. LEILANI CALLAWAY 6085 RX INFORMATION OD +2.50 -0.50 X145 Add:0.00 Pzm:0.00 Dir: Prz2:0.00 Dir2: OS +1.75 -0.25 X58 Add:0.00 Pzm:0.00 Dir: Prz2:0.00 Dir2: FITTING INFORMATION FPD: NPD:-3 Mccracken:R:28 L:31 SEG HT:R: L: Tint:None Shade:None VA Billable Items FRAME: NYASIA RIVERO [id number] Right Lens: POLY SINGLE VISION 1.586 POLY Left Lens: POLY SINGLE VISION 1.586 POLY KLEAR ANTI-REFLECTIVE COATING /renetta/ EDDIE HAGEN TRAINING DEVELOPMENT DIRECTOR Signed: 09/25/2023 12:08 Receipt Acknowledged By: 09/25/2023 13:06 /renetta/ DEAN PETTIT OPTOMETRY TECH 09/25/2023 ADDENDUM STATUS: COMPLETED PDS Desilverizer fit patient with 1 pair(s) of DVO eyeglasses, and 1 pair of NVO eyeglasses on 09/24/2023. OPT HT entered consult(s) as requested for provider signature. /renetta/ DEAN PETTIT OPTOMETRY TECH Signed: 09/25/2023 13:10 EDDIE AHGEN CNTRL W[facility]Rich [facility]
--- OUTSIDE RECORDS SUMMARY | 2024-08-28 07:36 | XMS_ITS | Encounter Summary ---
Author Name Department [place] Organization [place] Address [address] [place] [address] Care Team Providers Care Certified Master Safecracker Name Role Phone BERTEVITA EDDIE Primary Care [...] PRESCRIPT ION RX730 1 Aug 13, 2017 [id number] LAKESHA CALLAWAY PATIENT [place] PRESCRIPT ION RX730 1 Aug 13, 2017 [id number] LAKESHA CALLAWAY PATIENT [place] BIN [id number] PRESCRIPT ION [facility] Jun 13, 2014 RXTHP [id number] [phone] LAKESHA CALLAWAY PATIENT OPTUM RX PRESCRIPT ION RX Aug 13, 2022 THPRX [id number] LAEKSHA CALLAWAY PATIENT OPTUM RX PRESCRIPT ION RX Aug 13, 2022 THPRX [id number] LAKESHA CALLAWAY PATIENT [facility] POINT OF SERVICE [facility] PLAN Jan 11, 2019 [id number] [phone] LAKESHA CALLAWAY PATIENT [facility] POINT OF SERVICE Aug 13, 2017 [id number] LAKESHA CALLAWAY [facility] Aug 13, 2017 [id number] LAKESHA CALLWAAY PATIENT [facility]HP Aug 13[facility] 2017 [facility] [id number] LAKESHA CALLAWAY H PATIENT [facility] BOB Meraz Aug 13, 2017 [id number] NILTONLAKESHA H PATIENT [facility] PLAN BHAVESH BAE(W NR) Aug 13, 2017 [facility] [id number] LAKESHA CALLAWAY PATIENT [facility] PLAN USP BOB HERMOSILLO Aug 13, 2017 [facility] [id number] LAKESHA CALLAWAY PATIENT [facility] (WNR) TRICA RE(WN R) Aug 13, 2017 (WNR) [id number] LAKESHA CALLAWAY PATIENT Selected Encounter This section includes the information on record at [place] for the Encounter. Date/Time Encounter Type Encounter Description Reason Pro vider Source Oct 02, 2023 09:47 AM Outpatient Encounter OPTOMETRY IHE Encounter Template Text not used by [place] Plan of Treatment: Future Appointments (+ 6 months) and Future Tests (+/- 45 days) The Plan of Treatment section includes future care activities for the patient from all [place] treatmentfacilities. This section includes future appointments and future orders which are active, pending or scheduled. Future Appointments This section includes appointments that were scheduled to occur 6 months from the date of the Encounter, up to a maximum of 20 appointments. The data comes from all [place] treatment facilities. Appointment Date/Time Appointment Type Appointme nt Facility Name Feb 19, 2024 11:00 AM AMBULATORY - MEDICINE [place] C NTRL [facility] Social History: Smoking Status (Most current) [...] 2022 01:00 PM VA-TOBACCO [facility] Tobacco Use History This section includes a history of the smoking, or tobacco-related health factors, that were collected on or before the date of the Encounter. The data comes from the [place] facility where the Encounter took place. Date/Time Smoking Status/Tobacco Use Comment [place] Feb 04, 2021 01:30 PM [facility] Jul 29, 2018 12:31 PM [facility]TOBACCO [facility] Aug 17, 2017 03:43 PM LIFETIME NON-TOBACCO [facility] Apr 12, 2016 08:58 AM QUIT TOBACCO USE > 7 YEARS AGO [facility] Feb 08, 2015 08:25 AM QUIT TOBACCO USE > [facility] Encounter Notes: All associated encounter notes This section contains the clinical notes associated to the Encounter. Date/Time Encounter Note(s) Provider Source Oct 02, 2023 09:47 AM LETTERS: LOCAL TITLE: PATIENT LETTER (B) STANDARD TITLE: LETTERS DATE OF NOTE: OCT 02, 2023@09:47 ENTRY DATE: OCT 02, 2023@09:47:33 AUTHOR: GAYE BRIZUELA EXP COSIGNER: URGENCY: STATUS: COMPLETED [facility] Toll Free Number , ext [phone] OCT 02, 2023 LEILANI CALLAWAY [address] [place] [address] Dear LEILANI CALLAWAY Thank you for choosing the Department of [facility] ([place]) [facility] as your primary choice for health care. As a partner in your health care, we are contacting you in writing since we have been unsuccessful in our attempts to reach you to date. We want to assure you we are doing everything possible to schedule Veterans for their [place] medical care appointments. Our records indicate you are due for an appointment in optometry Thank you for choosing [facility] ([place]) [facility] as your primary choice for health care. As a partner in your health care, we are contacting you in writing since we have been unsuccessful in our attempts to reach you to date. We want to assure you we are doing everything possible to schedule Veterans for their [place] medical care appointments. If you would like to be seen, please contact [place] Call Center at [phone] Ext. [phone] to schedule an appointment. Thank you for your service to our nation, and we look forward to hearing from you soon. Sincerely, [facility] [address] [facility] [address] [place] [address] [place] [address] ext. [phone] [facility] [address] [facility] [address] [place] [address] [place] [address] [phone] [facility] [address] [address] [place] [address] ext. [phone] [facility] [address] [place] [address] ext. [phone] [facility]ELA [facility]
--- OUTSIDE RECORDS SUMMARY | 2024-08-28 07:36 | XMS_ITS | Encounter Summary ---
Author Name Department [place] Organization Department [place] Address [address] [place] [address] Care Team Providers Care Software Deployment Engineer Name Role Phone EDDIE CHESTER Primary Care [...] PRESCRIPT ION RX730 1 Aug 13, 2017 [id number] [phone] LAKESHA CALLAWAY PATIENT [place] PRESCRIPT ION RX730 1 Aug 13, 2017 [id number] LAKESHA CALLAWAY PATIENT [place] BIN 256593 PRESCRIPT ION [facility] HP Jun 13, 2014 RXTHP [id number] [phone] LAKESHA CALLAWAY PATIENT OPTUM RX PRESCRIPT ION RX Aug 13, 2022 THPRX [id number] LAKESHA CALLAWAY PATIENT OPTUM RX PRESCRIPT ION RX Aug 13, 2022 THPRX [phone] LAKESHA CALLAWAY PATIENT [facility] POINT OF SERVICE [facility] PLAN Jan 11, 2019 [id number] [phone] LAKESHA CALLAWAY PATIENT [facility] POINT OF SERVICE Aug 13, 2017 [id number] LAKESHA CALLAWAY PATIENT [facility] Aug 13, 2017 [id number] [phone] LAKESHA CALLAWAY PATIENT [facility] PLAN USFHP Aug 13, 2017 USP [id number] [phone] LAKESHA CALLAWAY PATIENT [facility] PLAN BOB Meraz Aug 13, 2017 [id number] [phone] NILTONLAKESHA [place] PATIENT [facility] PLAN BHAVESH KATHIA(W NR) Aug 13, 2017 [facility] [id number] LAKESHA CALLAWAY PATIENT [facility] PLAN USP BOB HERMOSILLO Aug 13, 2017 [facility] [id number] LAKESHA CALLAWAY PATIENT [facility] (WNR) TRICA RE(WN R) Aug 13, 2017 (WNR) [id number] LAKESHA CALLAWAY PATIENT Selected Encounter This section includes the information on record at [place] for the Encounter. Date/Time Encounter Type Encounter Description Reason Provider Source December 20, 2023 02:23 PM Outpatient Encounter PRIMARY CARE/MEDICINE BERENICE MONAE Encounter Template Text not used by [place] Plan of Treatment: Future Appointments (+ 6 months) and Future Tests (+/- 45 days) The Plan of Treatment section includes future care activities for the patient from all [place] [facility]. This section includes future appointments and future orders which are active, pending or scheduled. Future Appointments This section includes appointments that were scheduled to occur 6 months from the date of the Encounter, up to a maximum of 20 appointments. The data comes from all [place] treatment facilities. Appointment Date/Time Appointment Type Appointme nt Facility Name Feb 19, 2024 11:00 AM AMBULATORY - MEDICINE [facility] Apr 25, 2024 11:00 AM AMBULATORY MEDICINE [facility] May 09, 2024 02:45 PM AMBULATORY - MEDICINE [facility] Social History: Smoking Status (Most current) and Tobacco Use (All prior to encounter date) This section includes the most current, and the historical, smoking and tobacco- related health factors from the [place] facility where the Encounter took place. Current Smoking Status This section includes the most current smoking, or tobacco-related health factor, from the [place] facility where the Encounter took place. Date/Time Current Smoking Status Comment [place] it[place] Jul 14, 2022 01:00 PM [facility]ACCO [facility] Tobacco Use History This section includes a history of the smoking, or tobacco-related health factors, that were collected on or before the date of the Encounter. The data comes from the [place] facility where the Encounter took place. Date/Time Smoking Status/Tobacco Use Comment F acility Feb 04, 2021 01:30 PM [facility]ACCO [facility] [place] [facility] Jul 29, 2018 12:31 PM VA-TOBACCO [facility] [place] [facility] Aug 17, 2017 03:43 PM LIFETIME NON-TOBACCO USER [place] CNTRL [facility] [place] [facility] Apr 12, 2016 08:58 AM QUIT TOBACCO USE > 7 YEARS AGO [facility] Feb 08, 2015 08:25 AM QUIT TOBACCO USE > 7 YE[facility] AGO [facility] Encounter Notes: All associated encounter notes This section contains the clinical notes associated to the Encounter. Date/Time Encounter Note(s) Provider Source December 20, 2023 02:23 PM PRIMARY CARE SECUR E MESSAGING: [facility] TITLE: PRIMARY CARE SECURE MESSAGING STANDARD TITLE: PRIMARY CARE SECURE MESSAGING DATE OF NOTE: DECEMBER 20, 2023@14:23 ENTRY DATE: DECEMBER 20, 2023@15:23:32 AUTHOR: BERENICE MONAE EXP COSIGNER: URGENCY: STATUS: COMPLETED ------Original Message ------- Sent: 12/20/2023 03:01 PM ET From: LEILANI CALLAWAY To: Rich CHESTER_PRIMARY CARE_[facility] Subject: Medication:Zyrtec Could you please add Zyrtec back to my meds? Spring is killing me, thank you! ------Original Message ------- Sent: 12/20/2023 03:23 PM ET From: BERENICE MONAE To: LEILANI CALLAWAY Subject: Medication:Zyrtec Hi Leilani, Yes, I will ask Dr. Chester to [facility]. Berenice Bearden, career services director/Women's health team nurse /renetta/ BERENICE MONAE, MSN, RN, CNL PRIMARY CARE TEAM NURSE Signed: 12/20/2023 15:23 Receipt Acknowledged By: 12/28/2023 10:17 /renetta/ EDDIE CHESTER M.D. PHYSICIAN BERENICE MONAE [facility]
--- OUTSIDE RECORDS SUMMARY | 2024-08-28 07:37 | XMS_ITS | Encounter Summary ---
Author Name Department [place] Organization [place] Address [address] [place] [address] Care Team Providers Care Director Of Consulting Services Name Role Phone EDDIE DREW Primary Care Provider Alexei meraz Insurance Providers: [...] PRESCRIPT ION [id number] 1 Aug 13, 2017 [id number] [phone] LAKESHA CALLAWAY PATIENT [facility] PRESCRIPT ION [id number] 1 Aug 13, 2017 [id number] LAKESHA CALLAWAY PATIENT [facility] BIN [id number] PRESCRIPT ION [facility] HP Jun 13, 2014 RXTHP [id number] [phone] LAKESHA CALLAWAY PATIENT [facility] RX PRESCRIPT ION RX Aug 13, 2022 THPRX [id number] [phone] LAKESHA CALLAWAY PATIENT OPTUM RX PRESCRIPT ION RX Aug 13, 2022 THPRX [id number] [phone] LAKESHA CALLAWAY PATIENT [facility] POINT OF SERVICE [facility] PLAN Jan 11, 2019 [id number] [phone] LAKESHA CALLAWAY PATIENT [facility] POINT OF SERVICE Aug 13, 2017 [id number] [phone] LAKESHA CALLAWAY PATIENT [facility] Aug 13, 2017 [id number] [phone] LAKESHA CALLAWAY PATIENT [facility] HE[facility] PLAN USFHP Aug 13, 2017 [id number] [id number] LAKESHA CALLAWAY PATIENT [facility] HE[facility] PLAN BOB EVANS E Aug 13, 2017 [id number] LAKESHA CALLAWAY PATIENT [facility] PLAN BHAVESH KATHIA(W NR) Aug 13, 2017 [facility] [id number] LAKESHA CALLAWAY PATIENT [facility] PLAN USP BOB HERMOSILLO Aug 13, 2017 [facility] [id number] LAKESHA CALLAWAY PATIENT [facility] (WNR) TRICA RE(WN R) Aug 13, 2017 (WNR) [id number] LAKESHA CALLAWAY PATIENT Selected Encounter This section includes the information on record at ME for the Encounter. Date/Time Encounter Type Encounter Description Reason Pro vider Source Apr 25, 2024 12:00 AM Outpatient Encounter EVENT (HISTORICAL) IHE Encounter Template Text not used by ME Plan of Treatment: Future Appointments (+ 6 months) and Future Tests (+/- 45 days) The Plan of Treatment section includes future care activities for the patient from all ME treatmentfacilities. This section includes future appointments and future orders which are active, pending or scheduled. Future Appointments This section includes appointments that were scheduled to occur 6 months from the date of the Encounter, up to a maximum of 20 appointments. The data comes from all [place] treatment facilities. Appointment Date/Time Appointment Type Appointme nt Facility Name May 09, 2024 02:45 PM AMBULATORY - MEDICINE [facility] [place] [facility] Jul 17, 2024 02:00 PM AMBULAT[facility] - [facility] Aug 08, 2024 03:00 PM AMBULATORY - [facility] [place] [facility] Oct 06, 2024 02:30 PM [facility] Active, Pending, and Scheduled Orders This section includes a listing of several types of active, pending, and scheduled orders, including clinic medications orders, diagnostic test orders, procedure orders and consult orders; where the start date of the order is 45 days before the date of the Encounter or 45 days after the date of theEncounter. The data comes from all [place] treatment facilities. Test Date/Time Test Type Test Details Facility Name Apr 25, 2024 12:00 PM Consult Order [facility]-CARPET LAYER HELPER Cons Performance Manager's Choice [facility] Lab Results: +/- 30 days of the encounter This section includes the Chemistry and Hematology Lab Results on record with ME for the patient. Radiology Reports and Pathology Reports are provided separately, in subsequent sections. Lab Results This section contains the Chemistry/Hematology Results that were resulted 30 days before or 30 daysafter the date of the Encounter. Date/Time Source Result Type Result - Unit Interpretation Reference Range Comment May 19, 2024 12:00 AM [facility] OCCULT BLOOD FIT X1 SCREEN(IN-HOUSE) Specimen Type: FECES No comment entered. Ordering Provider: EDDIE DREW Report Released Date/Time: Apr 25, 2024 12:00 PM Reporting Lab: [facility] [address] [facility] [address] Performing Lab: [facility] [address] [facility] [address] OCCULT BLOOD (FIT)#1 OF 1 Negative NEG Apr 21, 2024 07:40 AM [facility] FOLATE (WROX) Specimen Type: SERUM No comment entered. Ordering Provider: EDDIE DREW Report Released Date/Time: Apr 15, 2024 04:29 PM Reporting Lab: [facility] [address] [facility] [address] Performing Lab: [facility] [address] [facility] [address] FOLATE (WROX) 11.94 ng/mL >5.2 Apr 21, 2024 07:40 AM [facility] BASIC METABOLIC PANEL (non-fasting) Specimen Type: SERUM No comment entered. Ordering Provider: EDDIE DREW Report Released Date/Time: Apr 15, 2024 04:29 PM Reporting Lab: [facility] [address] [facility] [address] Performing Lab: [facility] [address] [facility] [address] UREA NITROGEN 29 mg/dL H 7-25 GLUCOSE 99 mg/dL 65-100 SODIUM 137 mmol/L 135-145 POTASSIUM 4.2 mmol/L 3.5-5.0 CHLORIDE 108 mmol/L 100-110 CO2 21 meq/L 20-30 CREATININE, Serum 0.77 mg/dL 0.50-1.40 eGFR(CKD-EPI 2020) >90 mL/min >60 Apr 21, 2024 07:40 AM [facility] LIPID PANEL, NON FASTING Specimen Type: SERUM No comment entered. Ordering Provider: EDDIE DREW Report Released Date/Time: Apr 15, 2024 04:29 PM Reporting Lab: [address] [address] Performing Lab: [address] [address] CHOLESTEROL 219 mg/dL H TRIGLYCERIDE 29 mg/dL 0-150 LDL calculated 118 mg/dL 0-129 CHOL/HDL 2.3 HDL CHOLESTEROL 95 mg/dL H 40-60 Apr 21, 2024 07:40 AM [facility] LIVER FUNCTION Specimen Type: SERUM No comment entered. Ordering Provider: EDDIE DREW Report Released Date/Time: Apr 15, 2024 04:29 PM Reporting Lab: [address] [address] Performing Lab: [address] [address] PROTEIN,TOTAL 6.7 g/dL 6.0-8.3 ALBUMIN 4.1 g/dL 3.5-5.0 ALKALINE PHOSPHATASE 61 U/L 40-150 AST 20 U/L 5-34 ALT 21 U/L BILIRUBIN, TOTAL 0.2 mg/dL 0.2-1.2 Apr 21, 2024 07:40 AM [facility] CALCIUM Specimen Type: SERUM No comment entered. Ordering Provider: EDDIE DREW Report Released Date/Time: Apr 15, 2024 04:29 PM Reporting Lab: [facility] [place] [facility] [address] [facility] [address] Performing Lab: [facility] [place] [facility] [address] [facility] [address] CALCIUM 9.4 mg/dL 8.5-10.2 Apr 21, 2024 07:40 AM [facility] [place] [place] [facility] TSH Specimen Type: SERUM No comment entered. Ordering Provider: EDDIE DREW Report Released Date/Time: Apr 15, 2024 04:29 PM Reporting Lab: [facility] [place] [facility] [address] [facility] [address] Performing Lab: [place] [address] [address] TSH 1.78 u[IU]/mL 0.35-5.00 Apr 21, 2024 07:40 AM [facility] [place] [facility] HEMOGLOBIN A1C PANEL Specimen Type: BLOOD Comment: Values obtained from A1C measurements can vary. For atypical A1C assays, a reported value of 7.0 could actually be between 6.72 and 7.28 if measured by a reference method. A reported value of 9.0 could actually be between 8.73 and 9.27. Ref: http://www.ngs p.org/CAPdata. asp Ordering Provider: EDDIE DREW Report Released Date/Time: Apr 15, 2024 04:29 PM Reporting Lab: [place] [facility] [address] [facility] [address] Performing Lab: [place] [facility] [address] [facility] [address] HEMOGLOBIN A1C 5.1 4.0-5.6 Apr 21, 2024 07:40 AM [facility] [place] [facility] FERRITIN Specimen Type: SERUM No comment entered. Ordering Provider: EDDIE DREW Report Released Date/Time: Apr 15, 2024 04:29 PM Reporting Lab: [place] [facility] [address] [facility] [address] Performing Lab: [place] [address] [address] FERRITIN 51 ng/mL 10-200 Apr 21, 2024 07:40 AM [facility] MAGNESIUM Specimen Type: SERUM No comment entered. Ordering Provider: EDDIE DREW Report Released Date/Time: Apr 15, 2024 04:29 PM Reporting Lab: [facility] HOSPITALTRN [facility] [address] [facility] [address] Performing Lab: [facility]ITALTRN [facility] [address] [address] MAGNESIUM 1.9 mg/dL 1.6-2.6 Apr 21, 2024 07:40 AM [facility] IRON & TIBC PANEL Specimen Type: SERUM No comment entered. Ordering Provider: EDDIE DREW Report Released Date/Time: Apr 15, 2024 04:29 PM Reporting Lab: [facility]ITALTRN [facility]ITAL[facility] [address] [address] Performing Lab: [facility]ITALTRN [facility] [address] [address] TIBC 374 ug/dL 204-475 IRON 58 ug/dL 40-160 Transferrin Saturation 15.5 L 20.0-50.0 Transferrin (TRF) 283 mg/dL 200-360 Apr 21, 2024 07:40 AM [facility] VITAMIN D (25-OH) Specimen Type: SERUM No comment entered. Ordering Provider: EDDIE DREW Report Released Date/Time: Apr 15, 2024 04:29 PM Reporting Lab: [facility]ITALTRN [place] [address] [address] Performing Lab: [facility]ITALTRN [facility] [address] [address] VITAMIN D (25-OH) 50 ng/mL 20-50 Apr 21, 2024 07:40 AM [facility]ITALUSECENTR[facility] VITAMIN B12 Specimen Type: SERUM No comment entered. Ordering Provider: EDDIE DREW Report Released Date/Time: Apr 15, 2024 04:29 PM Reporting Lab: [facility]ITALTRN [place] [address] [address] Performing Lab: [facility] [address] [facility] [address] VITAMIN B12 979 pg/mL H 200-900 Apr 21, 2024 07:40 AM [facility] CBC Specimen Type: BLOOD No comment entered. Ordering Provider: EDDIE DREW Report Released Date/Time: Apr 15, 2024 04:29 PM Reporting Lab: [facility] [address] [facility] [address] Performing Lab: [facility] [address] [facility] [address] WBC 5.97 10*3/uL 4.50-11.00 RBC 4.22 10*6/uL 3.93-5.16 HGB 13.4 g/dL 12-15.2 HCT 39.1 36.6-45.6 MCV 92.7 fL 82-99 MCHC 34.3 g/dL 30.8-35.1 PLT 225 10*3/uL 140-360 RDW-CV 12.7 12.0-16.0 MCH 31.8 pg 26.2-32.6 Vital Signs: All taken on the encounter date This section contains inpatient and outpatient Vital Signs collected on the date of the Encounter. Date/Time Temperature Pulse Blood Pressure Respiratory Rate SP02 Pain Height Weight Body Mass Index Source Apr 25, 2024 11:46 AM 108/74 [place] [facility] Apr 25, 2024 11:43 AM 134 25 [place] [facility] [facility] Apr 25, 2024 11:09 AM 89 133/94 [place] [facility] [place] [facility] Apr 25, 2024 11:02 AM 98.3 89 18 99 [place] [facility] [facility] Apr 25, 2024 11:02 AM 131/89 [place] [facility] [facility] Social History: Smoking Status (Most current) and Tobacco Use (All prior to encounter date) This section includes the most current, and the historical, smoking and tobacco- related health factors from the ME facility where the Encounter took place. Current Smoking Status This section includes the most current smoking, or tobacco-related health factor, from the ME facility where the Encounter took place. Date/Time Current Smoking Status Comment Facil ity Apr 25, 2024 11:00 AM VA-TOBACCO NEVER USED [facility] Tobacco Use History This section includes a history of the smoking, or tobacco-related health factors, that were collected on or before the date of the Encounter. The data comes from the [place] facility where the Encounter took place. Date/Time Smoking Status/Tobacco Use Comment F acility Jul 14, 2022 01:00 PM VA-TOBACCO NEVER USED [facility] Feb 04, 2021 01:30 PM VA-TOBACCO NEVER USED [place] [facility] Jul 29, 2018 12:31 PM VA-TOBACCO NEVER USED [facility] Aug 17, 2017 03:43 PM LIFETIME NON-TOBACCO USER [place] [facility] Apr 12, 2016 08:58 AM QUIT TOBACCO USE > 7 YEARS AGO [facility] Feb 08, 2015 08:25 AM QUIT TOBACCO USE > 7 YEARS AGO [facility] Radiology Reports: +/- 30 days of the encounter Radiology Reports For cases when an order for radiology services may have been completed prior to the date of the Encounter, the report list includes the Radiology Reports that were completed up to 30 days before dateof the Encounter. For cases when an order for radiology services may have been completed after the date of the Encounter, the report list also includes the Radiology Reports that were completed up to30 days after date of the Encounter. The data comes from all [place] treatment facilities. Date/Time Radiology Report Provider Source May 09, 2024 02:30 PM OUTSIDE MAMMO/SCRE ENING, INCLUDING CAD, BILAT: LEILANI CALLAWAY [id number] [id number] F Exm Date: MAY 09, 2024@14:30 Req Phys: EDDIE DREW Loc: CWM/NO/PACT 6 WH (Req'g Loc) Img Loc: OUTSIDE GENERAL RADIOLOGY Service: Unknown Screen: Patient is unable to answer or is unsure Screen Comment: cc exam (Case [id number] COMPLETE) OUTSIDE MAMMO/SCREENING, INCLUDIN(RAD Detailed) CPT:22265 Reason for Study: annual screening mammogram Clinical History: Report Status: Electronically Filed Date Reported: MAY 09, 2024 Report: Community care exam; see CPRS/JLV for outside radiology report/results Impression: Community care exam; see CPRS/JLV for outside radiology report/results Primary Diagnostic Code: BI-RADS CATEGORY 1 (Negative) VERIFIED BY: / *ELECTRONICALLY FILED* [place] CN[facility]L [facility]
--- OUTSIDE RECORDS SUMMARY | 2024-08-28 07:37 | XMS_ITS ---
Author Name [place] Address [address] [place] [address] Care Team Providers Care Acrobatic Rigger Name Role Phone EDDIE DREW Primary Care [...] to Policy Gastelum [place] PRESCRIPT ION [id number] Aug 13, 2017 [id number] LAKESHA CALLAWAY PATIENT [place] PRESCRIPT ION [id number] 1 Aug 13, 2017 [id number] LAKESHA CALLAWAY PATIENT [place] BIN [id number] PRESCRIPT ION [facility] HP Jun 13, 2014 RXTHP [id number] [phone] LAKESHA CALLAWAY PATIENT OPTUM RX PRESCRIPT ION RX Aug 13, 2022 THPRX [id number] [phone] LAKESHA CALLAWAY PATIENT OPTUM RX PRESCRIPT ION RX Aug 13, 2022 THPRX [id number] [phone] LAKESHA CALLAWAY PATIENT [facility] POINT OF SERVICE [facility] PLAN Jan 11, 2019 [id number] [phone] LAKESHA CALLAWAY PATIENT [facility] POINT OF SERVICE Aug 13, 2017 [id number] LAKESHA CALLAWAY PATIENT [facility] OctAug 13, 2017 [id number] LAKESHA CALLAWAY PATIENT [facility] HEALTH PLAN BOB HERMOSILLON E Aug 13, 2017 [id number] [phone] LAKESHA CALLAWAY PATIENT [facility] HEALTH PLAN USFHP Aug 13, 2017 [facility] [id number] LAKESHA CALLAWAY PATIENT [facility] PLAN BHAVESH KATHIA(W NR) Aug 13, 2017 [facility] [id number] LAKESHA CALLAWAY PATIENT [facility] PLAN USP BOB HERMOSILLO Aug 13, 2017 [facility] [id number] LAKESHA CALLAWAY PATIENT [facility] (WNR) TRICA RE(WN R) Aug 13, 2017 (WNR) [id number] LAKESHA CALLAWAY PATIENT Selected Encounter This section includes the information on record at [place] for the Encounter. Date/Time Encounter Type Encounter Description Reason Provider Source Jul 17, 2024 02:00 PM HEARING AID EXAM BOTH EARS AUDIOLOGY ICD-10-CM H90.3 Sensorineural hearing loss, bilateral CAMINITI,DOLORES E IHE Encounter Template Text not used by [place] Assessments - Encounter Diagnoses This section includes the primary and secondary diagnoses documented for the Encounter. Date/Time Primary/Secondary Diagnosis Diagnosis Name Provider Source Jul 17, 2024 02:29 PM PRIMARY Sensorineural hearing loss, bilateral CAMINITI,DOLORES E [facility] Plan of Treatment: Future Appointments (+ 6 [...] Date/Time Appointment Type Appointme nt Facility Name Aug 08, 2024 03:00 PM AMBULATORY - [facility] Oct 06, 2024 02:30 PM AMBULATORY - MEDICINE [place] [facility] Active, Pending, and Scheduled Orders This section includes a listing of several types of active, pending, and scheduled orders, including clinic medications orders, diagnostic test orders, procedure orders and consult orders; where the start date of the order is 45 days before the date of the Encounter or 45 days after the date of theEncounter. The data comes from all [place] treatment facilities. Test Date/Time Test Type Test Details Facility Name Aug 18, 2024 10:10 AM Consult Order COMM[facility]ITY C[facility]-MRI Cons Neurophysiologist's Choice [place] CN[facility] Social History: Smoking Status (Most current) [...] 25, 2024 11:00 AM VA-TOBACCO NEVER USED [place] [facility] Tobacco Use History This section includes a history of the smoking, or tobacco-related health factors, that were collected on or before the date of the Encounter. The data comes from the [place] facility where the Encounter took place. Date/Time Smoking Status/Tobacco Use Comment F acility Jul 14, 2022 01:00 PM VA-TOBACCO NEVER USED [place] [facility] Feb 04, 2021 01:30 PM VA-TOBACCO NEVER USED [place] [facility] Jul 29, 2018 12:31 PM VA-TOBACCO NEVER USED [place] [facility] Aug 17, 2017 03:43 PM LIFETIME NON-TOBACCO USER [place] [facility] Apr 12, 2016 08:58 AM QUIT TOBACCO USE > 7 YEARS AGO [place] [facility] [place] [facility] Feb 08, 2015 08:25 AM QUIT TOBACCO USE > 7 YEARS AGO [place] [facility] [place] [facility] Encounter Notes: All associated encounter notes This section contains the clinical notes associated to the Encounter. Date/Time Encounter Note(s) Provider Source Jul 17, 2024 08:32 AM AUDIOLOGY E & M NO TE: LOCAL TITLE: AUDIOLOGY CLINIC STANDARD TITLE: AUDIOLOGY E & M NOTE DATE OF NOTE: JUL 17, 2024@08:32 ENTRY DATE: JUL 17, 2024@08:32:17 AUTHOR: DOLORES FREDERICK COSIGNER: URGENCY: STATUS: COMPLETED AUDIOLOGY CLINIC Has ADDENDA Mahamed was seen 07-17-24 for a hearing re-evaluation. Hearing was last evaluated in 2018. She was issued binaural Resound RICs in 2018. She reports that these did not work well for her due to repeated repairs needed as well as feeling somewhat occluded from the custom earmolds. She reports intermittent tinnitus and a diagnosis of BPPV. She states that hearing may have declined. She notes intermittent aural fullness- she has seen the ENT for sinus issues and is seeing an crankshaft straightener in the near future. Results are as follow: Otoscopy is WNL for both ears. Pure tone audiometric testing with headphones revealed a mild sensorineural hearing loss from 250-1000 Hz, sloping up to normal thresholds from 7091-0758 Hz before sloping to a mild sensorineural hearing loss at 6000 and 8000 Hz bilaterally. Word recognition scores were excellent with 100% correct for each ear for recorded speech presented at 80 dB HL (masked). Normal tympanograms were obtained bilaterally. Results obtained today revealed slight threshold decline at select frequencies in comparison to those from 2018. Mahamed was counseled on today's test results. Given the age and technology of mahamed's current amplification, she is considered eligible for new hearing aids. Binaural rechargeable RICs with domes are recommended and mahamed agrees. She measured a 2 and chose brown for the color. She reports she does not have a pacemaker. Fitting was scheduled for 08-08-24 at 3pm, RTC placed. Suicide Screen: C-SSRS Screening [place]-Suicide Severity Rating Scale (C-SSRS Screener) 1. Over the past month, have you wished you were or wished you could go to sleep and not wake up? No 2. Over the past month, have you had any actual thoughts of killing yourself? No 3. Over the past month, have you been thinking about how you might do this? Response not required due to responses to other questions. 4. Over the past month, have you had these thoughts and had some intention of acting on them? Response not required due to responses to other questions. 5.Over the past month, have you started to work out or worked out the details of how to kill yourself? Response not required due to responses to other questions. 6. If yes, at any time in the past month did you intend to carry out this plan? Response not required due to responses to other questions. 7. In your lifetime, have you ever done anything, started to do anything, or prepared to do anything to end your life (for example, collected pills, obtained a gun, gave away valuables,went to the roof but didn't jump)? No 8. If YES, was this within the past 3 months? Response not required due to responses to other questions. /renetta/ Janet RICH, [facility]A STAFF FILTER TANK TENDER HELPER Signed: 07/17/2024 14:44 Receipt Acknowledged By: 07/17/2024 14:55 /renetta/ NYASIA DAWSON LEAD AFRICAN HISTORY PROFESSOR 07/24/2024 ADDENDUM STATUS: COMPLETED Hearing aids received and certified, upcoming appointment scheduled on 08/08/2024. /renetta/ ISHAAN CLAUDIO Audiology Health Refrigeration Plant Operator Signed: 07/24/2024 07:42 DOLORES FREDERICK CNTRL TRN [facility]
--- OUTSIDE RECORDS SUMMARY | 2024-08-28 07:37 | XMS_ITS ---
Author Name [facility] [facility] [place] [facility] [place] Address [address] [place] [id number] Care Team Providers Care Mount Loader Name Role Phone EDDIE DREW Primary Care [...] PRESCRIPT ION [id number] 1 Aug 13, 2017 [id number] LAKESHA CALLAWAY PATIENT [place] PRESCRIPT ION [id number] 1 Aug 13, 2017 [id number] LAKESHA CALLAWAY PATIENT [place] BIN [id number] PRESCRIPT ION [facility] HP Jun 13, 2014 [id number] LAKESHA CALLAWAY PATIENT [facility] RX PRESCRIPT ION RX Aug 13, 2022 THPRX [id number] LAKESHA CALLAWAY PATIENT [facility] RX PRESCRIPT ION RX Aug 13, 2022 THPRX [phone] LAKESHA CALLAWAY PATIENT [facility] POINT OF SERVICE [facility] PL[facility] Jan 11, 2019 [id number] [phone] LAKESHA CALLAWAY PATIENT [facility] POINT OF SERVICE Aug 13, 2017 [id number] LAKESHA CALLAWAY PATIENT [facility] Aug 13, 2017 [id number] LAKESHA CALLAWAY PATIENT [facility] Aug 13, 2017 [facility] [id number] LAKESHA CALLAWAY PATIENT [facility] BOB EVANS E Aug 13, 2017 [facility] [id number] NILTONLA[place]HA PATIENT [facility] PL[facility] BHAVESH KATHIA(W NR) Aug 13, 2017 [facility] [id number] NILTONLA[place]HA [place]ON PATIENT [facility] PL[facility] USP BOB HERMOSILLO Aug 13, 2017 [facility] [id number] LAKESHA CALLAWAY PATIENT [facility] (WNR) TRICA RE(WN R) Aug 13, 2017 (WNR) [id number] [phone] LAKESHA CALLAWAY PATIENT Selected Encounter This section includes the information on record at [place] for the Encounter. Date/Time Encounter Type Encounter Description Reason Provider Source Aug 08, 2024 03:00 PM [facility] EVALUATION AUDIOLOGY ICD-10-CM Z46.1 Encounter for fitting and adjustment of hearing aid VERNELL CISSE [place] Encounter Template Text not used by [place] Assessments - Encounter Diagnoses This section includes the primary and secondary diagnoses documented for the Encounter. Date/Time Primary/Secondary Diagnosis Diagnosis Name Provider Source Aug 08, 2024 03:18 PM PRIMARY Encounter for fitting and adjustment of hearing aid RONY CISSE [facility] Aug 08, 2024 03:18 PM SECONDARY Sensorineural hearing loss, bilateral RONY CISSE [facility] Plan of Treatment: Future Appointments (+ 6 months) and Future Tests (+/- 45 days) The Plan of Treatment section includes future care activities for the patient from all [place] treatmentfacilities. This section includes future appointments and future orders which are active, pending or scheduled. Future Appointments This section includes appointments that were scheduled to occur 6 months from the date of the Encounter, up to a maximum of 20 appointments. The data comes from all [place] treatment facilities. Appointment Date/Time Appointment Type Appointme nt Facility Name Oct 06, 2024 02:30 PM AMBULATORY - MEDICINE [place] [facility] [place] [facility] Active, Pending, and Scheduled Orders This section includes a listing of several types of active, pending, and scheduled orders, including clinic medications orders, diagnostic test orders, procedure orders and consult orders; where the start date of the order is 45 days before the date of the Encounter or 45 days after the date of theEncounter. The data comes from all [place] treatment facilities. Test Date/Time Test Type Test Details Facility Name Aug 18, 2024 10:10 AM Consult Order COMMUNITY CARE-MRI Cons Solar [employer] Engineer's Choice [facility] [place] [facility] Social History: Smoking Status (Most current) and Tobacco Use (All prior to encounter date) This section includes the most current, and the historical, smoking and tobacco- related health factors from the [place] facility where the Encounter took place. Current Smoking Status This section includes the most current smoking, or tobacco-related health factor, from the [place] facility where the Encounter took place. Date/Time Current Smoking Status Comment Susana garcia Apr 25, 2024 11:00 AM VA-TOBACCO NEVER USED [place] [facility] Tobacco Use History This section includes a history of the smoking, or tobacco-related health factors, that were collected on or before the date of the Encounter. The data comes from the [place] facility where the Encounter took place. Date/Time Smoking Status/Tobacco Use Comment F acility Jul 14, 2022 01:00 PM VA-TOBACCO NEVER USED [place] [facility] [place] [facility] Feb 04, 2021 01:30 PM VA-TOBACCO NEVER USED [facility] [place] [facility] Jul 29, 2018 12:31 PM VA-TOBACCO NEVER USED [facility] [place] [facility] Aug 17, 2017 03:43 PM LIFETIME NON-TOBACCO USER [facility] [place] [facility] Apr 12, 2016 08:58 AM QUIT TOBACCO USE > 7 YEARS AGO [facility] [place] [facility] Feb 08, 2015 08:25 AM QUIT TOBACCO USE > 7 YEARS AGO [facility] [place] [facility] Encounter Notes: All associated encounter notes This section contains the clinical notes associated to the Encounter. Date/Time Encounter Note(s) Provider Source Aug 08, 2024 07:57 AM AUDIOLOGY E & M NOTE: LOCAL TITLE: AUDIOLOGY CLINIC STANDARD TITLE: AUDIOLOGY E & M NOTE DATE OF NOTE: AUG 08, 2024@07:57 ENTRY DATE: AUG 08, 2024@07:58:05 AUTHOR: VERNELL CISSE COSIGNER: URGENCY: STATUS: COMPLETED Dx CODE: Z46.1- Encounter for Fitting/Programming Hearing Aid(s); H90.3- Sensorineural Hearing Loss, Bilateral APPOINTMENT TYPE: Hearing Aid Fitting SUBJECTIVE (S): The patient was seen for hearing aid fitting and issuance. She had previously been evaluated and found to exhibit significant hearing loss for which amplification was recommended. How does the patient best learn? Verbal instruction, demonstration Does the patient have any cultural and taoist beliefs, emotional barriers, physical or cognitive limitations, and communication barriers which may impact his ability to learn? No Desire and motivation to learn? Good OBJECTIVE (O): Physical fit of hearing aids was good. Patient verified comfort. Verification of an appropriate acoustic response was obtained using Real Ear measurements (speech mapping) and NAL-NL2 targets. The patient reported good subjective benefit as well. Feedback manager mechanical maintenance was run. Hearing aids were found to be meeting targets adequately and MPO was not exceeding estimated UCL. Settings stored in GARRY. *Left probe tube could not be fully inserted due to patient sensitivity. ASSESSMENT (A): The following devices were issued: Make: Oticon Model: Intent 1 miniRITE-R Right Serial Number: [id number] Left Serial Number: [id number] Battery size: RECHARGEABLE Warranty ends: 08/17/27 Trial Period ends: 01/14/25 Domes/Wax guards: 8mm peterson dome double vent, mini Prowax Hris Coordinator: size 2 60 gain Program(s): Automatic Button(s): Short press= right raise, left lower Long press= on/off Fitting Formula: NAL-NL2 Remote Programming: HAs are capable BlueTooth: will connect at home Counseling was completed throughout todays appointment using a standardized curriculum that includes but is not limited to; realistic expectations with amplification in adverse listening environments, acclimatization to own voice and environmental sounds (following real-ear measurements), the importance of consistent use of amplification, proper insertion/removal, care and maintenance (including wax guards/domes if applicable), signal and alerts of devices, and charging/batteries. The was provided the opportunity to practice in office and reports confidence/understanding in all items reviewed. Time Spent= 20 minutes The patient was informed of and signed/agreed to [place] policy on hearing aid issuance: Yes Users are responsible for the maintenance and security of their devices. Determination of need to replace a hearing aid is made by the [place] maintenance mgr. Hearing aids will not be replaced in cases of neglect, abuse, or excessive loss. Items issued are for personal use only. Prognosis for successful hearing aid use is good. PLAN (P): 1. Follow-up for programming/adjustments as needed. 2. The International Outcome Inventory-Hearing Aids (IOI-RUVALCABA) will be mailed to the in four weeks. She was asked to complete and mail back to clinic after completion. 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
--- OUTSIDE RECORDS SUMMARY | 2024-08-28 07:37 | XMS_ITS ---
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 Name Role Phone BERTEVITA EDDIE Primary Care Provider Unavailabl e Insurance Providers: [...] PRESCRIPT ION [id number] 1 Aug 13, 2017 [id number] LAKESHA CALLAWAY PATIENT [facility] PRESCRIPT ION [id number] 1 Aug 13, 2017 [id number] LAKESHA CALLAWAY PATIENT [place] BIN [id number] PRESCRIPT ION [facility] HP Jun 13, 2014 [id number] [phone] LAKESHA CALLAWAY PATIENT OPTUM RX PRESCRIPT ION RX Aug 13, 2022 THPRX [id number] [phone] LAKESHA CALLAWAY PATIENT OPTUM RX PRESCRIPT ION RX Aug 13, 2022 THPRX [id number] LAKESHA CALLAWAY PATIENT [facility] POINT OF SERVICE [facility] PLAN Jan 11, 2019 [id number] [phone] LAKESHA CALLAWAY PATIENT [facility] POINT OF SERVICE Aug 13, 2017 [id number] LAKESHA CALLAWAY PATIENT [facility] Aug 13, 2017 [id number] LAKESHA CALLAWAY PATIENT [facility] USFHP Aug 13, 2017 USP [id number] [phone] LAKESHA CALLAWAY H PATIENT [facility] SANDRAIGH XIOMY EVANS E Aug 13, 2017 [id number] NILTONLAKESHA H PATIENT [facility] PLAN USGYPSY BAE(W NR) Aug 13, 2017 [facility] [id number] NILTONLAKESHA [place] PATIENT [facility] USP BOB [place] Aug 13, 2017 [id number] NILTONLAKESHA ALSTON PATIENT [facility] (WNR) TRICA RE(WN R) Aug 13, 2017 (WNR) [id number] [phone] LAKESHA CALLAWAY PATIENT Selected Encounter This section includes the information on record at [place] for the Encounter. Date/Time Encounter Type Encounter Description Reason Provider Source Apr 25, 2024 11:00 AM OFFICE O/P EST MOD 30 MIN PRIMARY CARE/MEDICINE ICD-10-CM N95.1 Menopausal and female climacteric states EDDIE DREW [facility] Encounter Template Text not used by [place] Assessments - Encounter Diagnoses This section includes the primary and secondary diagnoses documented for the Encounter. Date/Time Primary/Secondary Diagnosis Diagnosis Name Provider Source Aug 18, 2024 10:05 AM PRIMARY Menopausal and female climacteric states EDDIE DREW [facility] Aug 18, 2024 10:05 AM SECONDARY Benign neoplasm of pituitary gland VIKIEDDIE [facility] [place] [facility] Aug 18, 2024 10:05 AM SECONDARY Post-traumatic stress disorder, [facility] Plan of Treatment: Future Appointments (+ 6 months) and Future Tests (+/- 45 days) The Plan of Treatment section includes future care activities for the patient from all [place] treatmentfacilities. This section includes future appointments and future orders which are active, pending or scheduled. Future Appointments This section includes appointments that were scheduled to occur 6 months from the date of the Encounter, up to a maximum of 20 appointments. The data comes from all [place] treatment facilities. Appointment Date/Time Appointment Type Appointme nt Facility Name May 09, 2024 02:45 PM AMBULATORY - MEDICINE [place] [facility] [facility] Jul 17, 2024 02:00 PM AMBULATORY - REHAB MEDICIN E [place] [facility] [place] [facility] Aug 08, 2024 03:00 PM AMBULATORY - [facility] [place] [facility] Oct 06, 2024 02:30 PM AMBULATORY - MEDICINE [facility] Active, Pending, and Scheduled Orders This section includes a listing of several types of active, pending, and scheduled orders, including clinic medications orders, diagnostic test orders, procedure orders and consult orders; where the start date of the order is 45 days before the date of the Encounter or 45 days after the date of theEncounter. The data comes from all [facility]. Test Date/Time Test Type Test Details Facility Name Apr 25, 2024 12:00 PM Consult Order [facility] ENGINEER Cons [employer] Set Up Operator's Choice [facility] Lab Results: +/- 30 days of the encounter This section includes the Chemistry and Hematology Lab Results on record with [place] for the patient. Radiology Reports and Pathology Reports are provided separately, in subsequent sections. Lab Results This section contains the Chemistry/Hematology Results that were resulted 30 days before or 30 daysafter the date of the Encounter. Date/Time Source Result Type Result - Unit Interpretation Reference Range Comment May 19, 2024 12:00 AM [facility] OCCULT BLOOD FIT X1 SCREEN(IN-HOUSE) Specimen Type: FECES No comment entered. Ordering Provider: EDDIE DREW Report Released Date/Time: Apr 25, 2024 12:00 PM Reporting Lab: [address] [address] Performing Lab: [address] [address] OCCULT BLOOD (FIT)#1 OF 1 Negative NEG Apr 21, 2024 07:40 AM [facility] FOLATE (WROX) Specimen Type: SERUM No comment entered. Ordering Provider: EDDIE DREW Report Released Date/Time: Apr 15, 2024 04:29 PM Reporting Lab: [facility] [address] [address] Performing Lab: [facility]ANDSN [facility]ETS [facility] [address] [facility] [address] FOLATE (WROX) 11.94 ng/mL >5.2 Apr 21, 2024 07:40 AM [facility] BASIC METABOLIC PANEL (non-fasting) Specimen Type: SERUM No comment entered. Ordering Provider: EDDIE DREW Report Released Date/Time: Apr 15, 2024 04:29 PM Reporting Lab: [facility] [address] [address] Performing Lab: [facility] [address] [address] UREA NITROGEN 29 mg/dL H 7-25 GLUCOSE 99 mg/dL 65-100 SODIUM 137 mmol/L 135-145 POTASSIUM 4.2 mmol/L 3.5-5.0 CHLORIDE 108 mmol/L 100-110 CO2 21 meq/L 20-30 CREATININE, Serum 0.77 mg/dL 0.50-1.40 eGFR(CKD-EPI 2020) >90 mL/min >60 Apr 21, 2024 07:40 AM [facility] LIPID PANEL, NON FASTING Specimen Type: SERUM No comment entered. Ordering Provider: EDDIE DREW Report Released Date/Time: Apr 15, 2024 04:29 PM Reporting Lab: [facility] [address] [address] Performing Lab: [facility] [address] [address] CHOLESTEROL 219 mg/dL H TRIGLYCERIDE 29 mg/dL 0-150 LDL calculated 118 mg/dL 0-129 CHOL/HDL 2.3 HDL CHOLESTEROL 95 mg/dL H 40-60 Apr 21, 2024 07:40 AM [facility] LIVER FUNCTION Specimen Type: SERUM No comment entered. Ordering Provider: EDDIE DREW Report Released Date/Time: Apr 15, 2024 04:29 PM Reporting Lab: [facility] [address] [address] Performing Lab: [facility] [address] [address] PROTEIN,TOTAL 6.7 g/dL 6.0-8.3 ALBUMIN 4.1 g/dL 3.5-5.0 ALKALINE PHOSPHATASE 61 U/L 40-150 AST 20 U/L 5-34 ALT 21 U/L BILIRUBIN, TOTAL 0.2 mg/dL 0.2-1.2 Apr 21, 2024 07:40 AM [facility] CALCIUM Specimen Type: SERUM No comment entered. Ordering Provider: EDDIE DREW Report Released Date/Time: Apr 15, 2024 04:29 PM Reporting Lab: [facility] [address] [address] Performing Lab: [address] [address] CALCIUM 9.4 mg/dL 8.5-10.2 Apr 21, 2024 07:40 AM [facility] TSH Specimen Type: SERUM No comment entered. Ordering Provider: EDDIE DREW Report Released Date/Time: Apr 15, 2024 04:29 PM Reporting Lab: [facility] [address] [address] Performing Lab: [address] [address] TSH 1.78 u[IU]/mL 0.35-5.00 Apr 21, 2024 07:40 AM [facility] HEMOGLOBIN A1C PANEL Specimen Type: BLOOD Comment: [...] Apr 15, 2024 04:29 PM Reporting Lab: [place] [address] [address] Performing Lab: [facility]ITAL[facility]RE[facility]ITALTRN [facility]ENTERUSETS [address] [address] HEMOGLOBIN A1C 5.1 4.0-5.6 Apr 21, 2024 07:40 AM [facility] FERRITIN Specimen Type: SERUM No comment entered. Ordering Provider: EDDIE DREW Report Released Date/Time: Apr 15, 2024 04:29 PM Reporting Lab: [facility]IG[facility]ANDSN [facility]ENTERUSETS [address] [address] Performing Lab: [facility]ENTER[facility]ETS [address] [address] FERRITIN 51 ng/mL 10-200 Apr 21, 2024 07:40 AM [facility] IRON & TIBC PANEL Specimen Type: SERUM No comment entered. Ordering Provider: EDDIE DREW Report Released Date/Time: Apr 15, 2024 04:29 PM Reporting Lab: [facility]IG[facility]ANDSN [facility]ENTERUSETS [address] [address] Performing Lab: [facility]ENTER[facility]ETS [address] [address] TIBC 374 ug/dL 204-475 IRON 58 ug/dL 40-160 Transferrin Saturation 15.5 L 20.0-50.0 Transferrin (TRF) 283 mg/dL 200-360 Apr 21, 2024 07:40 AM [facility] MAGNESIUM Specimen Type: SERUM No comment entered. Ordering Provider: EDDIE DREW Report Released Date/Time: Apr 15, 2024 04:29 PM Reporting Lab: [facility]ITALRGREIL [facility]PITALTRN [facility]ENTERUSETS [address] [address] Performing Lab: [facility]ENTERUSETS [address] [address] MAGNESIUM 1.9 mg/dL 1.6-2.6 Apr 21, 2024 07:40 AM [facility] VITAMIN D (25-OH) Specimen Type: SERUM No comment entered. Ordering Provider: EDDIE DREW Report Released Date/Time: Apr 15, 2024 04:29 PM Reporting Lab: [facility]ITALR WSTRN [facility]ITALCHUSETS [facility] [address] [address] Performing Lab: [facility]ITAL[facility] HIGHLANDSN [facility] CENTERUSE[address] [address] VITAMIN D (25-OH) 50 ng/mL 20-50 Apr 21, 2024 07:40 AM [facility] VITAMIN B12 Specimen Type: SERUM No comment entered. Ordering Provider: EDDIE DREW Report Released Date/Time: Apr 15, 2024 04:29 PM Reporting Lab: [facility]ITAL[facility]IGHLANDSN [facility]ENTERUSEN[facility] [address] [address] Performing Lab: [facility]ITAL[facility]IGHLANDSN [facility] CENTERUSE[address] [address] VITAMIN B12 979 pg/mL H 200-900 Apr 21, 2024 07:40 AM [facility] CBC Specimen Type: BLOOD No comment entered. Ordering Provider: EDDIE DREW Report Released Date/Time: Apr 15, 2024 04:29 PM Reporting Lab: [facility]ITAL[facility] HIGHLANDSN [facility]ENTERUSEN[facility] [address] [address] Performing Lab: [facility]ITAL[facility] HIGHLANDSN [facility] CENTERUSETS [address] [address] WBC 5.97 10*3/uL 4.50-11.00 RBC 4.22 10*6/uL [...] Source Apr 25, 2024 11:46 AM 108/74 [place] [facility] [place] [facility] Apr 25, 2024 11:43 AM 134 25 [place] [facility] [place] [facility] Apr 25, 2024 11:09 AM 89 133/94 [facility] [place] [facility] Apr 25, 2024 11:02 AM 98.3 89 18 99 [place] [facility] [place] [facility] Apr 25, 2024 11:02 AM 131/89 [place] [facility] Social History: Smoking Status (Most current) and Tobacco Use (All prior to encounter date) This section includes the most current, and the historical, smoking and tobacco- related health factors from the [place] facility where the Encounter took place. Current Smoking Status This section includes the most current smoking, or tobacco-related health factor, from the [place] facility where the Encounter took place. Date/Time Current Smoking Status Comment Facil ity Apr 25, 2024 11:00 AM VA-TOBACCO NEVER USED [place] [place] [facility] Tobacco Use History This section includes a history of the smoking, or tobacco-related health factors, that were collected on or before the date of the Encounter. The data comes from the [place] facility where the Encounter took place. Date/Time Smoking Status/Tobacco Use Comment F acility Jul 14, 2022 01:00 PM VA-TOBACCO NEVER USED [place] [facility] [place] [facility] Feb 04, 2021 01:30 PM VA-TOBACCO NEVER USED [facility] [place] [facility] Jul 29, 2018 12:31 PM VA-TOBACCO NEVER USED [place] [facility] Aug 17, 2017 03:43 PM LIFETIME NON-TOBACCO USER [place] [facility] [place] [facility] Apr 12, 2016 08:58 AM QUIT TOBACCO USE > 7 YEARS AGO [facility] [place] [facility] Feb 08, 2015 08:25 AM QUIT TOBACCO USE > 7 YEARS AGO [place] [facility] [place] [facility] Radiology Reports: +/- 30 days of the [...] the Encounter. The data comes from all [place] treatment facilities. Date/Time Radiology Report Provider Source May 09, 2024 02:30 PM OUTSIDE MAMMO/SCRE ENING, INCLUDING CAD, BILAT: LEILANI CALLAWAY [id number] -[phone] F Exm Date: MAY 09, 2024@14:30 Req Phys: EDDIE DREW Loc: CWM/NO/PACT 6 WH (Req'g Loc) Img Loc: OUTSIDE GENERAL RADIOLOGY Service: Unknown Screen: Patient is unable to answer or is unsure Screen Comment: cc exam (Case 181 COMPLETE) OUTSIDE MAMMO/SCREENING, INCLUDIN(RAD Detailed) CPT:62749 Reason for Study: annual screening mammogram Clinical History: Report Status: Electronically Filed Date Reported: MAY 09, 2024 Report: Community care exam; see CPRS/JLV for outside radiology report/results Impression: Community care exam; see CPRS/JLV for outside radiology report/results Primary Diagnostic Code: BI-RADS CATEGORY 1 (Negative) VERIFIED BY: / *ELECTRONICALLY FILED* [facility] Encounter Notes: All associated encounter notes This section contains the clinical notes associated to the Encounter. Date/Time Encounter Note(s) Provider Source Apr 25, 2024 11:28 AM PHYSICIAN NOTE: LOCAL TITLE: MD NOTE STANDARD TITLE: PHYSICIAN NOTE DATE OF NOTE: APR 25, 2024@11:28 ENTRY DATE: APR 25, 2024@11:28:14 AUTHOR: EDDIE DREW EXP COSIGNER: URGENCY: STATUS: COMPLETED Patient Name: LEILANI CALLAWAY Ms. is here for management of chronic medical issues. She is concerned about her ability to use antibiotics since she has had anaphalactoid reactions in the past. She is interested in seeing Crystal Lapper to determine what she is allergic to. She is currenlty using clonazepam 1/2 pill (0.5mg) daily, at times 1mg especially if traveling. If she is home, she does not use the clonazepam. She has not had any panic attacks. She reports that her anxiety is more because she is pushing hersrlf more to be active outside of the home (got a camper), her depression is stable and her PTSD is stable. No SI. Menopausal symptoms well contorlled, has night sweat once a month and hot flashes rarely. Past Medical History: Active problems - Computerized Problem List is the source for the followin. Menopausal flushing 2. Impaired fasting glucose 3. Hyperlipidemia 4. Mantoux: positive INH x6mo 1996 5. Gastroesophageal reflux disease 6. Eating disorder binge eating and excessive exercise in-patient 07/2011- 08/2011 7. Chronic low back pain 8. Bilateral hearing loss low frequency 9. Pituitary macroadenoma 10. Temporomandibular joint disorder 11. Urge incontinence of urine 12. 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 Allergies: TETRACYCLINE, SULFA DRUGS, BEE STINGS, AUGMENTIN Current Medications: Active Outpatient Medications (including Supplies): CLONAZEPAM 1MG TAB TAKE ONE TABLET BY MOUTH ONCE DAILY ACTIVE NEEDED FOR PANIC DISORDER ESTRADIOL 0.025MG/DAY (YIV-RBGWUWM-ACT) APPLY 1 PATCH TO ACTIVE SKIN TWO TIMES A WEEK TO REPLACE [place] PATCH EQUIVALENT FLUTICASONE PROP 50MCG 120D NASAL INHL INSTILL 2 SPRAYS ACTIVE INTO EACH NOSTRIL ONCE DAILY FOR NASAL IRRITATION/INFLAMMATION PROGESTERONE 100MG CAP TAKE ONE CAPSULE BY MOUTH AT ACTIVE BEDTIME FOR MENOPAUSE TRAZODONE HCL 100MG TAB TAKE ONE TABLET BY MOUTH AT ACTIVE BEDTIME Non-VA CHOLECALCIF 25MCG (D3-1,000UNIT) TAB 125MCG BY ACTIVE MOUTH ONCE DAILY Non-VA GRAPE SEED CAP/TAB ONE BY MOUTH ONCE DAILY ACTIVE Non-VA MULTIVITAMIN/MINERALS CAP/TAB 1 TABLET BY MOUTH ACTIVE ONCE DAILY Non-VA PSYLLIUM ORAL PWD 1 TEASPOONFUL BY MOUTH ONCE DAILY ACTIVE Non-VA TABLET CUTTER MISCELLANEOUS TUMERIC DIRECTED ACTIVE ONCE DAILY Social History: , 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 +MST ROS: General: no fever CV: no cp, no sob, no palpitations Lung: no VARELA, no cough, no wheezing Abd: no n/v/d, no pain Psych: no SI PE: BP:133/94 (04/25/2024 11:09) Pulse:89 (04/25/2024 11:09) Resp:18 (04/25/2024 11:02) Temp:98.3 F [36.8 C] (04/25/2024 11:02) Pulse Oximetry VITAL SIGNS SELECTED Measurement DT POx (L/MIN)(%) 04/25/2024 11:02 99 Pain:0 (02/19/2024 10:51) Weight:132 lb [59.87 kg] (07/14/2022 13:07) Height:62 in [157.5 cm] (04/12/2016 08:53) BMI: 24.2 General: NAD CV: S1S2 rrr, no m/r/g noted Lung: CTA b/l, no wheeze, rhonchi, or crackles, good breath sounds to bases b/l Ext: no edema, warm and well perfused b/l Psych: A&O x3, appropriate mood and affect HGB A1C (WR): 5.1 WBC: 5.97 RBC: 4.22 HGB: 13.4 HCT: 39.1 MCV: 92.7 MCHC: 34.3 RDW: 12.7 PLT: 225 MCH: 31.8 VIT. B12 (WROX): 979 H FERRITIN (WR): 51 TSH (Access): 1.78 VITAMIN D TOTAL: 50 FOLATE (WR): 11.94 GLUCOSE: 99 UREA NITROGEN: 29 H SODIUM: 137 POTASSIUM: 4.2 CHLORIDE: 108 CO2: 21 CALCIUM: 9.4 CHOLESTEROL: 219 H PROTEIN,TOTAL: 6.7 ALBUMIN: 4.1 ALKALINE PHOSPHATASE: 61 SGOT: 20 SGPT: 21 TRIGLYCERIDE: 29 LDL CHOL: 118 CHOL/HDL RATIO: 2.3 MAGNESIUM: 1.9 TIBC (WROX): 374 IRON (WROX): 58 HDL: 95 H BILIRUBIN,TOT.: 0.2 CREATININE-EGFR: 0.77 TRANSFERRIN SATURATION: 15.5 L Transferrin: 283 eGFR CKD-EPI 2020: >90 Above labs reviewed with [place]. A/P MENOPAUSAL LMP 04/17/21, having regular hot flashes and night sweats up to 6 a day and 6 a night. Also with hair thinning, abdominal fat, and more mood swings. Started HRT with patches 07/14/22 with nearly complete resolution of hot flashes and feeling improved mood. No vaginal bleeding. She reports taking progesterone as prescribed. Her 10-year ASCVD risk is low at 2.8% as of 07/14/22. Pelvic US 10/23/22 normal - continue estriadiol 0.025mg/day pathens (q7d) and progetseron 100mg daily ANXIETY PTSD well controlled, reports feeling better with imporved mood and energy off of sertraline. Had titrated up to 200mg and weaned off by 12/2018. She feels she feels better off of medication with well controlled PTSD. Using clonazepam 3-4 times a week but using 1/2 pill to help her get out of the house for things other than work. She is not having panic attacks. Discussed using a non-benzodiazepine medidacation to help control the anxiety and for long-term use. She is very hesitant to switch medications at this time. Discussed long- term side effects of benzo use including dependence. Current use is safe and appropriate. - continue clonazepam 0.5mg daily prn and will discuss further at next visit. 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 Reports doing well, happy with her current weight and feels healthy. No vomitting, not doing competative sports, staying physically active with hiking - f/u next visit HEARING LOSS No longer using hearing aides as they were interfering with using a mask and she does not feel that they were very helpful - follow audiology prn VITAMIN D elevated 07/10/22 at 62 She wass taking OTC Vit D 5000 units daily; advised to decrease to 1000 units and she reports taking 25mcg 04/21/24 Vit D 50 - continue Vt D at 25mcg daily PITUITARY MACROADENOMA Last MRI 06/07/12 with enhancing 2 mm focus within the left posterolateral pituitary, had galactorrhea while taking risperidone which resolved when that medication was stopped. No longer having galactorrhea and no vision schanges. Prolactin 04/20/23 13 (nl) TSH wnl 04/21/24 1.78 - MRI ordered to f/u on findings form 2011 HCM Pap 07/15/21 nl, HPV neg; repeat 07/2026 Mammogram 05/01/22 BI-RADS 1, Density C; repeat 04/2023 scheduled for 05/09/24 Colon cancer FIT neg 10/23/22; repeat now Vaccines UTD f/u annually and prn The above plan and education was reviewed with the and they verbalized understanding. iLink paper copy of med list. Avg Risk Colorectal Cancer Screen: AVERAGE RISK colorectal cancer screening is due based on information available to this clinical reminder FOBT/FIT (Fecal Immunochemical Testing) has been ordered. See order tab for details. Mammogram Screening: A mammogram is currently scheduled. PTSD Screening: PC-PTSD-5 A PTSD screening test (PC-PTSD-5) was negative (score=2). IN THE PAST MONTH, have you ever had any experience that was so frightening, horrible or traumatic. For example: A serious accident or fire a physical or sexual assault or abuse An earthquake or flood A war Seeing someone be killed or seriously injured Having a loved one through homicide or suicide 1. Have you ever experienced this kind of event? YES 2. Had nightmares about the event(s) or thought about the event(s) when you did not want to? NO 3. Tried hard not to think about the event(s) or went out of your way to avoid situations that reminded you of the event(s)? YES 4. Been constantly on guard, watchful, or easily startled? YES 5. Ward numb or detached from people, activities, or your surroundings? NO 6. Ward guilty or unable to stop blaming yourself or others for the event(s) or any problems the event(s) may have caused? 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 1. The experienced the following events during deployment: Patient denies experiencing any TBI related events during deployment. Negative Screen Medication Reconciliation: Outpatient: Has the patient been taking medications as documented in the EMLR? YES: The patient has been taking medications as documented in the EMLR. Essential Medication List for Review used to complete this medication reconciliation. INCLUDED IN THIS LIST: Alphabetical list of active outpatient prescriptions dispensed from this [place] (local) and dispensed from another [place] or [facility] facility (remote) as well as inpatient orders [...] whether with a VA or non-VA provider. JLV Link Data on this list may not be complete. Please check JLV. Allergies/ADRs (Tool #5) FACILITY ALLERGY/ADR -------- CLNCL/HLTH LU REPT EFF [id number] SULFA DRUGS CLNCL/HLTH LU REPT EFF [id number] SULFUR CLNCL/HLTH LU REPT EFF [id number] TETRACYCLINES [facility] [place] [facility] AUGMENTIN [facility] [place] [facility] BEE STINGS [facility] [place] [facility] SULFA DRUGS [facility] [place] [facility] TETRACYCLINE Med Recon NoGlossary (Tool #1) INCLUDED IN THIS LIST: Alphabetical list of active outpatient prescriptions dispensed from this [place] (local) and dispensed from another [place] or [facility] facility (remote) as well as inpatient orders (local pending and active), local clinic medications, locally documented non-VA medications, and local prescriptions that have or been discontinued in the past 90 days. Non-VA Meds Last Documented On: Apr 25, 2024 NOTE The display of VA prescriptions dispensed from another [place] or [facility] facility (remote) is limited to active outpatient prescription entries matched to National Drug File at the originating site and may not include some items such as investigational drugs, compounds, etc. NOT INCLUDED IN THIS LIST: Medications self-entered by the patient into personal health records (i.e. [employer]) are NOT included in this list. Non-VA medications documented outside this [place], remote inpatient orders (regardless of status) and remote clinic medications are NOT included in this list. The patient and provider must always discuss medications the patient is taking, regardless of where the medication was dispensed or obtained. OUTPT CETIRIZINE HCL 10MG TAB (Status = Active) TAKE ONE TABLET BY MOUTH ONCE DAILY FOR ALLERGIES Rx# [id number] Last Released: 07/07/24 Qty/Days Supply: Rx Expiration Date: 04/26/25 Refills Remainin Indication: FOR ALLERGIES Non-VA CHOLECALCIF 25MCG (D3-1,000UNIT) TAB TAKE FIVE TABLETS BY MOUTH ONCE DAILY OUTPT CLONAZEPAM 1MG TAB (Status = Active) TAKE ONE TABLET BY MOUTH ONCE DAILY NEEDED FOR PANIC DISORDER Rx# [id number] Last Released: 08/01/24 Qty/Days Supply: Rx Expiration Date: 10/26/24 Refills Remainin Indication: FOR PANIC DISORDER OUTPT ESTRADIOL 0.025MG/DAY (UBL-EXOICIP-JQY) (Status = ) APPLY 1 PATCH TO SKIN TWO TIMES A WEEK TO REPLACE [place] PATCH EQUIVALENT Rx# [id number] Last Released: 06/02/24 Qty/Days Supply: Rx Expiration Date: 06/28/24 Refills Remainin Indication: FOR CHANGE OF LIFE SIGNS OUTPT FLUTICASONE PROP 50MCG 120D NASAL INHL (Status = Active) INSTILL 2 SPRAYS INTO EACH NOSTRIL ONCE DAILY FOR NASAL IRRITATION/INFLAMMATION Rx# [id number] Last Released: 05/14/24 Qty/Days Supply: 09/11 Rx Expiration Date: 04/26/25 Refills Remainin Non-VA GRAPE SEED CAP/TAB TAKE ONE BY MOUTH ONCE DAILY resveratrol Non-VA MULTIVITAMIN/MINERALS CAP/TAB TAKE ONE TABLET BY MOUTH ONCE DAILY Non-VA OTHER CAP/TAB TAKE [place] BY MOUTH ONCE DAILY OUTPT PROGESTERONE 100MG CAP (Status = ) TAKE ONE CAPSULE BY MOUTH AT BEDTIME FOR MENOPAUSE Rx# [id number] Last Released: 06/03/24 Qty/Days Supply: Rx Expiration Date: 06/28/24 Refills Remainin Non-VA PSYLLIUM ORAL PWD TAKE 1 TEASPOONFUL BY MOUTH ONCE DAILY Non-VA TABLET CUTTER MISCELLANEOUS USE TUMERIC DIRECTED ONCE DAILY OUTPT TRAZODONE HCL 100MG TAB (Status = Active) TAKE ONE TABLET BY MOUTH AT BEDTIME Rx# [id number] Last Released: 06/03/24 Qty/Days Supply: Rx Expiration Date: 11/19/24 Refills Remainin SUPPLIES Sexual Orientation: The patient thinks of their sexual orientation as: Straight or Heterosexual RHS Screen: RHS Screen Session Format: Face to Face Environmental Check Upon inquiry, the individual reports that the environment is safe to proceed. Informed Consent to Screen and Document The individual consents to proceed with screening. The individual consents to documentation of responses. PRIMARY SCREEN: In the past 12 months, how often did a current or former intimate partner (e.g., boyfriend, girlfriend, , , sexual partner): 1. Scream or curse at you Never 2. Insult or talk down to you Never 3. Threaten you with harm Never 4. Physically hurt you Never 5. Force or pressure you to have sexual contact against your will, or when you were unable to say no Never ?? The HITS tool (items 1-4 above) is [place] copyright protected by Ari Chandler MD, and the user has full rights to use it throughout the [place] system. PRIMARY SCREEN RESULT: The Primary Screen is NEGATIVE. The individual answered never to all forms of IPV above (i.e., answered never to all 5 items) The individual accepts education and/or resources: Yes - Offered verbal universal education about IPV EDUCATION: The individual indicated readiness to learn. Education offered during this session as noted above. The individual indicated understanding by asking relevant questions and making appropriate comments. No barriers to learning were observed or identified. /renetta/ EDDIE DREW M.D. PHYSICIAN Signed: 08/18/2024 10:05 EDDIE DREW [facility] [place] [facility] Apr 25, 2024 11:04 AM PREVENTIVE MEDICINE NURSING NOTE: LOCAL TITLE: CLINICAL REMINDERS/NURSING STANDARD TITLE: PREVENTIVE MEDICINE NURSING NOTE DATE OF NOTE: APR 25, 2024@11:04 ENTRY DATE: APR 25, 2024@11:04:15 AUTHOR: MARGOT LEON COSIGNER: URGENCY: STATUS: COMPLETED Depression Screening: Perform PHQ-2 A PHQ-2 screen was performed. The score was 1 which is a negative screen for depression. Over the past two weeks, how often have you been bothered by the following problems? 1. Little interest or pleasure in doing things Not at all 2. Feeling down, depressed, or hopeless Several days Homelessness/Food Insecurity Screen: In the past 2 months, have you been living in stable housing that you own, rent, or stay in as part of a household? Yes - Living in stable housing. Are you worried or concerned that in the next 2 months you may NOT have stable housing that you own, rent, or stay in as part of a household? No - Not worried about housing near future The reports the following: Within the past 12 months, you worried whether your food would run out before you got money to buy more. Never true Within the past 12 months, the food you bought just didn't last and you didn't have money to get more. Never true Tobacco Use Screening: The patient has never used tobacco. Influenza Immunization: Deferral / Refusal The patient declines to receive the recommended dose of seasonal influenza vaccine. Immunization: INFLUENZA, UNSPECIFIED FORMULATION Refusal Reason: PATIENT DECISION Patient refuses all immunization(s) in the FLU group Date Documented: 04/25/24 11:12 Alcohol Use Screen (AUDIT-C): Alcohol Screen: SCREEN FOR ALCOHOL (AUDIT-C) An alcohol screening test (AUDIT-C) was negative (score=0). 1. How often did you have a drink containing alcohol in the past year? Consider a drink to be a 12 ounce can or bottle of regular beer, 8 ounces of malt liquor, a 5 ounce glass of table wine, or a 1.5 ounce shot of liquor (like scotch, gin, or vodka). Never 2. How many drinks containing alcohol did you have on a typical day when you were drinking in the past year? Response not required due to responses to other questions. 3. How often did you have 4 or more drinks on one occasion in the past year? Response not required due to responses to other questions. /renetta/ MARGOT LEON REGISTERED NURSE Signed: 04/25/2024 11:12 MARGOT LEON [facility]
--- OUTSIDE RECORDS SUMMARY | 2024-08-28 07:37 | XMS_ITS | Encounter Summary ---
Author Name [facility] [facility] [place] Address [address] [place] [id number] Care Team Providers Care Forensic Toxicologist Name Role Phone EDDIE DREW Primary Care [...] PRESCRIPT ION [id number] 1 Aug 13, 2017 [id number] LAKESHA CALLAWAY PATIENT [place] PRESCRIPT ION [id number] 1 Aug 13, 2017 [id number] [phone] LAKESHA CALLAWAY PATIENT [place] BIN [id number] PRESCRIPT ION [facility] HP Jun 13, 2014 RXTHP [id number] [phone] LAKESHA CALLAWAY PATIENT [facility] PRESCRIPT ION RX Aug 13, 2022 THPRX [id number] [phone] LAKESHA CALLAWAY PATIENT [facility] RX PRESCRIPT ION RX Aug 13, 2022 THPRX [id number] [phone] LAKESHA CALLAWAY PATIENT [facility] POINT OF SERVICE [facility] Jan 11, 2019 [id number] LAKESHA CALLAWAY PATIENT [facility] POINT OF SERVICE Aug 13, 2017 [id number] [facility] Aug 13, 2017 [id number] LAKESHA CALLAWAY PATIENT [facility] SANDRAIGH XIOMY HERMOSILLON E Aug 13, 2017 [id number] [phone] LAKESHA CALLAWAY PATIENT [facility] Aug 13, 2017 [facility] [id number] LAKESHA CALLAWAY PATIENT [facility] PLAN BHAVESH KATHIA(W NR) Aug 13, 2017 [facility] [id number] LAKESHA CALLAWAY PATIENT [facility] PLAN USP BOB HERMOSILLO Aug 13, 2017 [facility] [id number] [id number] LAKESHA CALLAWAY PATIENT [facility] (WNR) TRICA RE(WN R) Aug 13, 2017 (WNR) [id number] LAKESHA CALLAWAY PATIENT Selected Encounter This section includes the information on record at [place] for the Encounter. Date/Time Encounter Type Encounter Description Reason Provider Source Aug 18, 2024 09:42 AM Outpatient Encounter PRIMARY CARE/MEDICINE BERNADETTE FITZGERALD [place] Encounter Template Text not used by [place] Plan of Treatment: Future Appointments (+ 6 months) and Future Tests (+/- 45 days) The Plan of Treatment section includes future care activities for the patient from all [place] treatmentfacilities. This section includes future appointments and future orders which are active, pending or scheduled. Future Appointments This section includes appointments that were scheduled to occur 6 months from the date of the Encounter, up to a maximum of 20 appointments. The data comes from all [place] treatment facilities. Appointment Date/Time Appointment Type Appointme nt Facility Name Oct 06, 2024 02:30 PM AMBULATORY - MEDICINE [place] [facility] [place] [facility] Active, Pending, and Scheduled Orders This section includes a listing of several types of active, pending, and scheduled orders, including clinic medications orders, diagnostic test orders, procedure orders and consult orders; where the start date of the order is 45 days before the date of the Encounter or 45 days after the date of theEncounter. The data comes from all [place] treatment facilities. Test Date/Time Test Type Test Details Facility Name Aug 18, 2024 10:10 AM Consult Order COMMUNITY CARE-MRI Cons Attendant [employer] [place] [facility] [place] [facility] Social History: Smoking Status (Most current) and Tobacco Use (All prior to encounter date) This section includes the most current, and the historical, smoking and tobacco- related health factors from the [place] facility where the Encounter took place. Current Smoking Status This section includes the most current smoking, or tobacco-related health factor, from the [place] facility where the Encounter took place. Date/Time Current Smoking Status Comment Susana ity Apr 25, 2024 11:00 AM [facility] [place] [facility] Tobacco Use History This section includes a history of the smoking, or tobacco-related health factors, that were collected on or before the date of the Encounter. The data comes from the [place] facility where the Encounter took place. Date/Time Smoking Status/Tobacco Use Comment F acgianfranco Jul 14, 2022 01:00 PM VA-TOBACCO NEVER USED [place] [facility] [place] [facility] Feb 04, 2021 01:30 PM VA-TOBACCO NEVER USED [place] [facility] [place] [facility] Jul 29, 2018 12:31 PM VA-TOBACCO NEVER USED [place] [facility] [place] [facility] Aug 17, 2017 03:43 PM LIFETIME NON-TOBACCO USER [place] [facility] [place] [facility] Apr 12, 2016 08:58 AM QUIT TOBACCO USE > 7 YEARS AGO [place] [facility] [place] [facility] Feb 08, 2015 08:25 AM QUIT TOBACCO USE > 7 YEARS AGO [place] [facility] [place] [facility] Encounter Notes: All associated encounter notes This section contains the clinical notes associated to the Encounter. Date/Time Encounter Note(s) Provider Source Aug 18, 2024 09:42 AM PRIMARY CARE SECUR E MESSAGING: LOCAL TITLE: PRIMARY CARE SECURE MESSAGING STANDARD TITLE: PRIMARY CARE SECURE MESSAGING DATE OF NOTE: AUG 18, 2024@09:42 ENTRY DATE: AUG 18, 2024@09:42:39 AUTHOR: BERNADETTE FITZGERALD COSIGNER: URGENCY: STATUS: COMPLETED ------Original Message -------- Sent: 08/16/2024 07:39 AM ET From: LEILANI CALLAWAY To: Rich DREW_PRIMARY CARE_[facility] Subject: Medication:HRT MEDS Please refill my estradiol and progesterone and have sent to my address on record. Thanks so much! Leilani Callaway ------Original Message -------- Sent: 08/18/2024 09:42 AM ET From: BERNADETTE FITZGERALD To: LEILANI CALLAWAY Subject: Medication:HRT MEDS Good morning, I will forward your request to your provider. Respectfully, Bernadette Fitzgerald, RN /es/ BERNADETTE FITZGERALD REGISTERED NURSE Signed: 08/18/2024 09:42 Receipt Acknowledged By: 08/18/2024 09:44 /renetta/ EDDIE DRWE M.D. PHYSICIAN BERNADETTE FITZGERALD [place] [facility]
--- OUTSIDE RECORDS SUMMARY | 2024-08-28 07:37 | XMS_ITS | Encounter Summary ---
Author Name [place] Address [address] [place] [address] Care Team Providers Care Manager Non Profit Name Role Phone EDDIE CHESTER Primary Care [...] PRESCRIPT ION [id number] 1 Aug 13, 2017 [id number] LAKESHA CALLAWAY PATIENT [place] PRESCRIPT ION [id number] 1 Aug 13, 2017 [id number] LAKESHA CALLAWAY PATIENT [place] BIN 734133 PRESCRIPT ION [facility] HP Jun 13, 2014 RXTHP [phone] LAKESHA CALLAWAY PATIENT [facility] RX PRESCRIPT ION RX Aug 13, 2022 THPRX [id number] [phone] LAKESHA CALLAWAY PATIENT OPTUM RX PRESCRIPT ION RX Aug 13, 2022 THPRX [phone] LAKESHA CALLAWAY PATIENT [facility] POINT OF SERVICE [facility] PLAN Jan 11, 2019 [id number] [phone] LAKESHA CALLAWAY PATIENT [facility] POINT OF SERVICE Aug 13, 2017 [id number] [id number] LAKESHA CALLAWAY PATIENT [facility] Aug 13, 2017 [id number] LAKESHA CALLAWAY PATIENT [facility] PLAN BRIGH XIOMY HERMOSILLON E Aug 13, 2017 [id number] [phone] LAKESHA CALLAWAY PATIENT [facility] Aug 13, 2017 [facility] [id number] [phone] LAKESHA CALLAWAY PATIENT [facility] PLAN BHAVESH KATHIA(W NR) Aug 13, 2017 [facility] [id number] LAKESHA CALLAWAY PATIENT [facility] PLAN USP BOB HERMOSILLO Aug 13, 2017 [facility] [id number] [id number] LAKESHA CALLAWAY PATIENT [facility] (WNR) TRICA RE(WN R) Aug 13, 2017 (WNR) [id number] LAKESHA CALLAWAY PATIENT Selected Encounter This section includes the information on record at [place] for the Encounter. Date/Time Encounter Type Encounter Description Reason Provider Source Apr 16, 2024 08:16 AM Outpatient Encounter PRIMARY CARE/MEDICINE GEM XAVIER Encounter Template Text not used by [place] Plan of Treatment: Future Appointments (+ 6 months) and Future Tests (+/- 45 days) The Plan of Treatment section includes future care activities for the patient from all [place] treatmentfaselect specialty hospitalities. This section includes future appointments and future orders which are active, pending or scheduled. Future Appointments This section includes appointments that were scheduled to occur 6 months from the date of the Encounter, up to a maximum of 20 appointments. The data comes from all [place] treatment facilities. Appointment Date/Time Appointment Type Appointme nt Facility Name Apr 25, 2024 11:00 AM AM[place]ULATORY - [place]ICINE [place] [facility] [facility] May 09, 2024 02:45 PM AMBULATORY - MEDICINE [place] [facility] [facility] Jul 17, 2024 02:00 PM AMBULATORY - REHAB MEDICIN E [place] [facility] [place] [facility] Aug 08, 2024 03:00 PM AMBULATORY - REHAB MEDICIN E [place] [facility] [facility] Oct 06, 2024 02:30 PM AMBULATORY - MEDICINE [place] [facility] Active, Pending, and Scheduled Orders This section includes a listing of several types of active, pending, and scheduled orders, including clinic medications orders, diagnostic test orders, procedure orders and consult orders; where the start date of the order is 45 days before the date of the Encounter or 45 days after the date of theEncounter. The data comes from all [place] treatment facilities. Test Date/Time Test Type Test Details Facility Name Apr 25, 2024 12:00 PM Consult Order COMMUNITY CARE-DIE CAST DIE MAKER Cons Staff Accountant's Choice [facility] Lab Results: +/- 30 days of the encounter This section includes the Chemistry and Hematology Lab Results on record with [place] for the patient. Radiology Reports and Pathology Reports are provided separately, in subsequent sections. Lab Results This section contains the Chemistry/Hematology Results that were resulted 30 days before or 30 daysafter the date of the Encounter. Date/Time Source Result Type Result - Unit Interpretation Reference Range Comment Apr 21, 2024 07:40 AM [facility] FOLATE (WROX) Specimen Type: SERUM No comment entered. Ordering Provider: EDDIE CHESTER Report Released Date/Time: Apr 15, 2024 04:29 PM Reporting Lab: [facility] [address] [facility] [address] Performing Lab: [facility] [address] [facility] [address] FOLATE (WROX) 11.94 ng/mL >5.2 Apr 21, 2024 07:40 AM [facility] BASIC METABOLIC PANEL (non-fasting) Specimen Type: SERUM No comment entered. Ordering Provider: EDDIE CHESTER Report Released Date/Time: Apr 15, 2024 04:29 PM Reporting Lab: [facility] [address] [address] Performing Lab: [facility] [address] [address] UREA NITROGEN 29 mg/dL H 7-25 GLUCOSE 99 mg/dL 65-100 SODIUM 137 mmol/L 135-145 POTASSIUM 4.2 mmol/L 3.5-5.0 CHLORIDE 108 mmol/L 100-110 CO2 21 meq/L 20-30 CREATININE, Serum 0.77 mg/dL 0.50-1.40 eGFR(CKD-EPI 2020) >90 mL/min >60 Apr 21, 2024 07:40 AM [facility] LIVER FUNCTION Specimen Type: SERUM No comment entered. Ordering Provider: EDDIE CHESTER Report Released Date/Time: Apr 15, 2024 04:29 PM Reporting Lab: [facility] [address] [facility] [address] Performing Lab: [address] [address] PROTEIN,TOTAL 6.7 g/dL 6.0-8.3 ALBUMIN 4.1 g/dL 3.5-5.0 ALKALINE PHOSPHATASE 61 U/L 40-150 AST 20 U/L 5-34 ALT 21 U/L BILIRUBIN, TOTAL 0.2 mg/dL 0.2-1.2 Apr 21, 2024 07:40 AM [facility] LIPID PANEL, NON FASTING Specimen Type: SERUM No comment entered. Ordering Provider: EDDIE CHESTER Report Released Date/Time: Apr 15, 2024 04:29 PM Reporting Lab: [address] [address] Performing Lab: [address] [address] CHOLESTEROL 219 mg/dL H TRIGLYCERIDE 29 mg/dL 0-150 LDL calculated 118 mg/dL 0-129 CHOL/HDL 2.3 HDL CHOLESTEROL 95 mg/dL H 40-60 Apr 21, 2024 07:40 AM [facility] CALCIUM Specimen Type: SERUM No comment entered. Ordering Provider: EDDIE CHESTER Report Released Date/Time: Apr 15, 2024 04:29 PM Reporting Lab: [address] [address] Performing Lab: [address] [address] CALCIUM 9.4 mg/dL 8.5-10.2 Apr 21, 2024 07:40 AM [facility] TSH Specimen Type: SERUM No comment entered. Ordering Provider: EDDIE CHESTER Report Released Date/Time: Apr 15, 2024 04:29 PM Reporting Lab: [facility] [address] [address] Performing Lab: [address] [address] TSH 1.78 u[IU]/mL 0.35-5.00 Apr 21, 2024 07:40 AM [facility] HEMOGLOBIN A1C PANEL Specimen Type: BLOOD Comment: Values obtained from A1C measurements can vary. For atypical A1C assays, a reported value of 7.0 could actually be between 6.72 and 7.28 if measured by a reference method. A reported value of 9.0 could actually be between 8.73 and 9.27. Ref: http://www.ngs p.org/CAPdata. asp Ordering Provider: EDDIE CHESTER Report Released Date/Time: Apr 15, 2024 04:29 PM Reporting Lab: [address] [address] Performing Lab: [address] [address] HEMOGLOBIN A1C 5.1 4.0-5.6 Apr 21, 2024 07:40 AM [facility] IRON & TIBC PANEL Specimen Type: SERUM No comment entered. Ordering Provider: EDDIE CHESTER Report Released Date/Time: Apr 15, 2024 04:29 PM Reporting Lab: [address] [address] Performing Lab: [address] [address] TIBC 374 ug/dL 204-475 IRON 58 ug/dL 40-160 Transferrin Saturation 15.5 L 20.0-50.0 Transferrin (TRF) 283 mg/dL 200-360 Apr 21, 2024 07:40 AM [facility] FERRITIN Specimen Type: SERUM No comment entered. Ordering Provider: EDDIE CHESTER Report Released Date/Time: Apr 15, 2024 04:29 PM Reporting Lab: [facility] [place] [facility] [address] [facility] [address] Performing Lab: [facility] [place] [facility] [address] [facility] [address] FERRITIN 51 ng/mL 10-200 Apr 21, 2024 07:40 AM [facility] [place] [facility] MAGNESIUM Specimen Type: SERUM No comment entered. Ordering Provider: EDDIE CHESTER Report Released Date/Time: Apr 15, 2024 04:29 PM Reporting Lab: [facility] [place] [facility] [address] [address] Performing Lab: [facility] [place] [facility] [address] [facility] [address] MAGNESIUM 1.9 mg/dL 1.6-2.6 Apr 21, 2024 07:40 AM [facility] [place] [facility] VITAMIN D (25-OH) Specimen Type: SERUM No comment entered. Ordering Provider: EDDIE CHESTER Report Released Date/Time: Apr 15, 2024 04:29 PM Reporting Lab: [facility] [place] [facility] [address] [facility] [facility] [address] Performing Lab: [facility] [place] [address] [address] VITAMIN D (25-OH) 50 ng/mL 20-50 Apr 21, 2024 07:40 AM [facility] VITAMIN B12 Specimen Type: SERUM No comment entered. Ordering Provider: EDDIE CHESTER Report Released Date/Time: Apr 15, 2024 04:29 PM Reporting Lab: [facility] [place] [facility] [address] [facility] [address] [facility] [address] Performing Lab: [facility] [place] [address] [address] VITAMIN B12 979 pg/mL H 200-900 Apr 21, 2024 07:40 AM [facility] [place] [facility] CBC Specimen Type: BLOOD No comment entered. Ordering Provider: EDDIE CHESTER Report Released Date/Time: Apr 15, 2024 04:29 PM Reporting Lab: [facility] [place] [facility] [address] [address] Performing Lab: [place] [facility] [address] [address] WBC 5.97 10*3/uL 4.50-11.00 RBC 4.22 10*6/uL 3.93-5.16 HGB 13.4 g/dL 12-15.2 HCT 39.1 36.6-45.6 MCV 92.7 fL 82-99 MCHC 34.3 g/dL 30.8-35.1 PLT 225 10*3/uL 140-360 RDW-CV 12.7 12.0-16.0 MCH 31.8 pg 26.2-32.6 Social History: Smoking Status (Most current) and Tobacco Use (All prior to encounter date) This section includes the most current, and the historical, smoking and tobacco- related health factors from the [place] facility where the Encounter took place. Current Smoking Status This section includes the most current smoking, or tobacco-related health factor, from the [place] facility where the Encounter took place. Date/Time Current Smoking Status Comment Susana ity Jul 14, 2022 01:00 PM VA-TOBACCO NEVER USED [facility] Tobacco Use History This section includes a history of the smoking, or tobacco-related health factors, that were collected on or before the date of the Encounter. The data comes from the [place] facility where the Encounter took place. Date/Time Smoking Status/Tobacco Use Comment F acgianfranco Feb 04, 2021 01:30 PM VA-TOBACCO NEVER USED [facility] Jul 29, 2018 12:31 PM VA-TOBACCO NEVER USED [facility] Aug 17, 2017 03:43 PM LIFETIME NON-TOBACCO USER [facility] Apr 12, 2016 08:58 AM QUIT TOBACCO USE > 7 YEARS AGO [facility] Feb 08, 2015 08:25 AM QUIT TOBACCO USE > 7 YEARS AGO [facility] Radiology Reports: +/- 30 days of [...] the Encounter. The data comes from all [place] treatment facilities. Date/Time Radiology Report Provider Source May 09, 2024 02:30 PM OUTSIDE MAMMO/SCRE ENING, INCLUDING CAD, BILAT: LEILANI CALLAWAY [id number] [id number] F Exm Date: MAY 09, 2024@14:30 Req Phys: EDDIE CHESTER Loc: CWM/NO/PACT 6 WH (Req'g Loc) Img Loc: OUTSIDE GENERAL RADIOLOGY Service: Unknown Screen: Patient is unable to answer or is unsure Screen Comment: cc exam (Case 181 COMPLETE) OUTSIDE MAMMO/SCREENING, INCLUDIN(RAD Detailed) CPT:35105 Reason for Study: annual screening mammogram Clinical History: Report Status: Electronically Filed Date Reported: MAY 09, 2024 Report: Community care exam; see CPRS/JLV for outside radiology report/results Impression: Community care exam; see CPRS/JLV for outside radiology report/results Primary Diagnostic Code: BI-RADS CATEGORY 1 (Negative) VERIFIED BY: / *ELECTRONICALLY FILED* [place] [facility] Encounter Notes: All associated encounter notes This section contains the clinical notes associated to the Encounter. Date/Time Encounter Note(s) Provider Source Apr 16, 2024 08:16 AM PRIMARY CARE SECUR E MESSAGING: LOCAL TITLE: PRIMARY CARE SECURE MESSAGING STANDARD TITLE: PRIMARY CARE SECURE MESSAGING DATE OF NOTE: APR 16, 2024@08:16 ENTRY DATE: APR 16, 2024@08:16:26 AUTHOR: GEM XAVIER EXP COSIGNER: URGENCY: STATUS: COMPLETED ------Original Message ------ Sent: 04/16/2024 08:16 AM ET From: GEM XAVIER To: LEILANI CALLAWAY Subject: General:General Inquiry Hello- Just wanted to let you know that Dr. Chester ordered labs for you. -Michelle Primary Care DAY /renetta/ Gem Xavier RN Primary Care Staff Nurse Signed: 04/16/2024 08:16 GEM XAVIER [facility]
--- OUTSIDE RECORDS SUMMARY | 2024-08-28 07:37 | XMS_ITS | Encounter Summary ---
Author Name [facility] [place] Address [address] [place] [address] Care Team Providers Care Back Seam Stitcher Name Role Phone EDDIE CHESTER Primary Care [...] PRESCRIPT ION [id number] 1 Aug 13, 2017 [id number] LAKESHA CALLAWAY PATIENT [place] PRESCRIPT ION [id number] 1 Aug 13, 2017 [id number] LAKESHA CALLAWAY PATIENT [place] BIN 640347 PRESCRIPT ION [facility] HP Jun 13, 2014 [id number] [phone] LAKESHA CALLAWAY PATIENT [facility] RX PRESCRIPT ION RX Aug 13, 2022 THPRX [id number] LAKESHA CALLAWAY PATIENT OPTUM RX PRESCRIPT ION RX Aug 13, 2022 THPRX [id number] LAKESHA CALLAWAY PATIENT [facility] POINT OF SERVICE [facility] PLAN Jan 11, 2019 [id number] [phone] LAKESHA CALLAWAY PATIENT [facility] POINT OF SERVICE Aug 13, 2017 [id number] LAKESHA CALLAWAY PATIENT [facility] Aug 13, 2017 [id number] [phone] LAKESHA CALLAWAY PATIENT [facility] [place] XIOMY HERMOSILLON E Aug 13, 2017 [id number] LAKESHA CALLAWAY PATIENT [facility] Aug 13, 2017 [facility] [id number] [phone] LAKESHA CALLAWAY PATIENT [facility] PLAN BHAVESH KATHIA(W NR) Aug 13, 2017 [facility] [id number] LAKESHA CALLAWAY PATIENT [facility] PLAN USP BOB HERMOSILLO Aug 13, 2017 [facility] [id number] [id number] [address] [facility] (WNR) TRICA RE(WN R) Aug 13, 2017 (WNR) [id number] LAKESHA CALLAWAY PATIENT Selected Encounter This section includes the information on record at [place] for the Encounter. Date/Time Encounter Type Encounter Description Reason Pro vider Source Aug 18, 2024 09:48 AM Outpatient Encounter PRIMARY CARE/MEDICINE IHE Encounter Template Text not used by [place] Plan of Treatment: Future Appointments (+ 6 months) and Future Tests (+/- 45 days) The Plan of Treatment section includes future care activities for the patient from all [place] treatmentfacilities. This section includes future appointments and future orders which are active, pending or scheduled. Future Appointments This section includes appointments that were scheduled to occur 6 months from the date of the Encounter, up to a maximum of 20 appointments. The data comes from all [place] treatment facilities. Appointment Date/Time Appointment Type Appointme nt Facility Name Oct 06, 2024 02:30 PM AM[place]ULATORY - [place]ICINE [place] [facility] [place] [facility] Active, Pending, [...] of theEncounter. The data comes from all [place] treatment facilities. Test Date/Time Test Type Test Details Facility Name Aug 18, 2024 10:10 AM Consult Order COMMUNITY CARE-MRI Cons [employer] Associate's Choice [place] [facility] [facility] Social History: Smoking Status (Most current) and Tobacco Use (All prior to encounter date) This section includes the most current, and the historical, smoking and tobacco- related health factors from the [place] facility where the Encounter took place. Current Smoking Status This section includes the most current smoking, or tobacco-related health factor, from the [place] facility where the Encounter took place. Date/Time Current Smoking Status Comment Susana jose Apr 25, 2024 11:00 AM [facility] [place] [facility] Tobacco Use History This section includes a history of the smoking, or tobacco-related health factors, that were collected on or before the date of the Encounter. The data comes from the [place] facility where the Encounter took place. Date/Time Smoking Status/Tobacco Use Comment [place] acgianfranco Jul 14, 2022 01:00 PM VA-TOBACCO NEVER USED [place] [facility] [place] [facility] Feb 04, 2021 01:30 PM VA-TOBACCO NEVER USED [place] [facility] [place] [facility] Jul 29, 2018 12:31 PM VA-TOBACCO NEVER USED [place] [facility] [facility] Aug 17, 2017 03:43 PM LIFETIME NON-TOBACCO USER [place] [facility] [place] [facility] Apr 12, 2016 08:58 AM QUIT TOBACCO USE > 7 YEARS AGO [place] [facility] [place] [facility] Feb 08, 2015 08:25 AM QUIT TOBACCO USE > 7 YEARS AGO [place] [facility] [place] [facility] Encounter Notes: All associated encounter notes This section contains the clinical notes associated to the Encounter. Date/Time Encounter Note(s) Provider Source Aug 18, 2024 09:48 AM LETTERS: LOCAL TITLE: PATIENT LETTER (B) STANDARD TITLE: LETTERS DATE OF NOTE: AUG 18, 2024@09:48 ENTRY DATE: AUG 18, 2024@09:48:05 AUTHOR: EDDIE CHESTER COSIGNER: URGENCY: STATUS: COMPLETED PATIENT LETTER (B) Has ADDENDA LEILANI CALLAWAY [address] [place] [address], [phone] Date:AUG 18, 2024 Dear LEILANI CALLAWAY, Thank you for having your studies done. I have reviewed your stool test done on 05/19/24. Your stool test was negative for blood (normal result). You should repeat this test in one year for routine colon cancer screening. Please feel free to call with any questions at [phone]. Sincerely, Eddie Chester MD, MPH Primary Care Team [address] [address] 08/18/2024 ADDENDUM STATUS: COMPLETED Sent via Secure messager // MARGOT LEON REGISTERED NURSE Signed: 08/18/2024 10:34 EDDIE CHESTER [place] [facility]
--- OUTSIDE RECORDS SUMMARY | 2024-08-28 07:37 | XMS_ITS | Encounter Summary ---
Author Name [facility] Organization [facility] [place] [facility] [place] Address [address] [place] [id number] Care Team Providers Care Java Manager Name Role Phone EDDIE DREW Primary [...] PRESCRIPT ION [id number] 1 Aug 13, 2017 [id number] [phone] LAKESHA CALLAWAY PATIENT [place] PRESCRIPT ION [id number] 1 Aug 13, 2017 [phone] LAKESHA CALLAWAY PATIENT [place] BIN [id number] PRESCRIPT ION [facility] HP Jun 13, 2014 [id number] [phone] LAKESHA CALLAWAY PATIENT [facility] RX PRESCRIPT ION RX Aug 13, 2022 THPRX [id number] [phone] LAKESHA CALLAWAY PATIENT [facility] RX PRESCRIPT ION RX Aug 13, 2022 THPRX [phone] [facility] POINT OF SERVICE [facility] PLAN Jan 11, 2019 [id number] [facility] POINT OF SERVICE Aug 13, 2017 [id number] [phone] LAKESHA CALLAWAY PATIENT [facility] Aug 13, 2017 [id number] LAKESHA CALLAWAY PATIENT [facility] PLAN BOB HERMOSILLON E Aug 13, 2017 [id number] LAKESHA CALLAWAY PATIENT [facility] PLAN USFHP Aug 13, 2017 [facility] [id number] LAKESHA CALLAWAY PATIENT [facility] PLAN BHAVESH KATHIA(W NR) Aug 13, 2017 [facility] [id number] LAKESHA CALLAWAY PATIENT [facility] PLAN USP BOB HERMOSILLO Aug 13, 2017 [facility] [id number] [id number] LAKESHA CALLAWAY PATIENT [facility] (WNR) MARY JOA RE(WN R) Aug 13, 2017 (WNR) [id number] [id number] LAKESHA CALLAWAY PATIENT Selected Encounter This section includes the information on record at [place] for the Encounter. Date/Time Encounter Type Encounter Description Reason Pro vider Source May 09, 2024 12:00 AM Outpatient Encounter COMMUNITY CARE CONSULT IHE Encounter Template Text not used by [place] Plan of Treatment: Future Appointments (+ 6 months) and Future Tests (+/- 45 days) The Plan of Treatment section includes future care activities for the patient from all [place] treatmentfacilities. This section includes future appointments and future orders which are active, pending or scheduled. Future Appointments This section includes appointments that were scheduled to occur 6 months from the date of the Encounter, up to a maximum of 20 appointments. The data comes from all [place] treatment facilities. Appointment Date/Time Appointment Type Appointme nt Facility Name Jul 17, 2024 02:00 PM AMBULATORY - REHAB MEDICIN E [facility] Aug 08, 2024 03:00 PM [facility] Oct 06, 2024 02:30 PM AMBULATORY - MEDICINE [facility] Active, Pending, and Scheduled Orders This section includes a listing of several types of active, pending, and scheduled orders, including clinic medications orders, diagnostic test orders, procedure orders and consult orders; where the start date of the order is 45 days before the date of the Encounter or 45 days after the date of theEncounter. The data comes from all [place] treatment facilities. 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 Radiology Reports and Pathology Reports are provided separately, in subsequent sections. Lab Results This section contains the Chemistry/Hematology Results that were resulted 30 days before or 30 daysafter the date of the Encounter. Date/Time Source Result Type Result - Unit Interpretation Reference Range Comment May 19, 2024 12:00 AM [facility] OCCULT BLOOD FIT X1 SCREEN(IN-HOUSE) Specimen Type: FECES No comment entered. Ordering Provider: EDDIE DREW Report Released Date/Time: Apr 25, 2024 12:00 PM Reporting Lab: [facility] [address] [address] Performing Lab: [facility] [address] [address] OCCULT BLOOD (FIT)#1 OF 1 Negative NEG Apr 21, 2024 07:40 AM [facility] FOLATE (WROX) Specimen Type: SERUM No comment entered. Ordering Provider: EDDIE DREW Report Released Date/Time: Apr 15, 2024 04:29 PM Reporting [facility] [address] [address] Performing Lab: [facility] [address] [facility] [address] FOLATE (WROX) 11.94 ng/mL >5.2 Apr 21, 2024 07:40 AM [facility] BASIC METABOLIC PANEL (non-fasting) Specimen Type: SERUM No comment entered. Ordering Provider: EDDIE DREW Report Released Date/Time: Apr 15, 2024 04:29 PM Reporting Lab: [facility] [address] [address] Performing Lab: [facility] [address] [address] UREA NITROGEN 29 mg/dL H 7-25 GLUCOSE 99 mg/dL 65-100 SODIUM 137 mmol/L 135-145 POTASSIUM 4.2 mmol/L 3.5-5.0 CHLORIDE 108 mmol/L 100-110 CO2 21 meq/L 20-30 CREATININE, Serum 0.77 mg/dL 0.50-1.40 eGFR(CKD-EPI 2020) >90 mL/min >60 Apr 21, 2024 07:40 AM [facility] LIVER FUNCTION Specimen Type: SERUM No comment entered. Ordering Provider: EDDIE DREW Report Released Date/Time: Apr 15, 2024 04:29 PM Reporting Lab: [address] [address] Performing Lab: [address] [address] PROTEIN,TOTAL 6.7 g/dL 6.0-8.3 ALBUMIN 4.1 g/dL 3.5-5.0 ALKALINE PHOSPHATASE 61 U/L 40-150 AST 20 U/L 5-34 ALT 21 U/L BILIRUBIN, TOTAL 0.2 mg/dL 0.2-1.2 Apr 21, 2024 07:40 AM [facility] LIPID PANEL, NON FASTING Specimen Type: SERUM No comment entered. Ordering Provider: EDDIE DREW Report Released Date/Time: Apr 15, 2024 04:29 PM Reporting Lab: [address] [address] Performing Lab: [address] [address] CHOLESTEROL 219 mg/dL H TRIGLYCERIDE 29 mg/dL 0-150 LDL calculated 118 mg/dL 0-129 CHOL/HDL 2.3 HDL CHOLESTEROL 95 mg/dL H 40-60 Apr 21, 2024 07:40 AM [facility] CALCIUM Specimen Type: SERUM No comment entered. Ordering Provider: EDDIE DREW Report Released Date/Time: Apr 15, 2024 04:29 PM Reporting Lab: [address] [place] [address] Performing Lab: [place] [facility] [place] [facility] [address] [address] CALCIUM 9.4 mg/dL 8.5-10.2 Apr 21, 2024 07:40 AM [facility] HEMOGLOBIN A1C PANEL Specimen Type: [...] Apr 15, 2024 04:29 PM Reporting Lab: [facility] [place] [facility] [address] [facility] [address] Performing Lab: [facility] [address] [address] HEMOGLOBIN A1C 5.1 4.0-5.6 Apr 21, 2024 07:40 AM [facility] TSH Specimen Type: SERUM No comment entered. Ordering Provider: EDDIE DREW Report Released Date/Time: Apr 15, 2024 04:29 PM Reporting Lab: [facility] [place] [facility] [address] [facility] [address] Performing Lab: [place] [facility] [address] [address] TSH 1.78 u[IU]/mL 0.35-5.00 Apr 21, 2024 07:40 AM [facility] FERRITIN Specimen Type: SERUM No comment entered. Ordering Provider: EDDIE DREW Report Released Date/Time: Apr 15, 2024 04:29 PM Reporting Lab: [place] [facility] [place] [facility] [address] [facility] [address] Performing Lab: [place] [facility] [address] [address] FERRITIN 51 ng/mL 10-200 Apr 21, 2024 07:40 AM [facility] [place] [facility] IRON & TIBC PANEL Specimen Type: SERUM No comment entered. Ordering Provider: EDDIE DREW Report Released Date/Time: Apr 15, 2024 04:29 PM Reporting Lab: [facility] [address] [facility] [address] Performing Lab: [facility] TRN [facility] [address] [facility] [address] TIBC 374 ug/dL 204-475 IRON 58 ug/dL 40-160 Transferrin Saturation 15.5 L 20.0-50.0 Transferrin (TRF) 283 mg/dL 200-360 Apr 21, 2024 07:40 AM [facility] VITAMIN D (25-[place]) Specimen Type: SERUM No comment entered. Ordering Provider: EDDIE DREW Report Released Date/Time: Apr 15, 2024 04:29 PM Reporting Lab: [facility]ERYRVAU[facility]ENTERTRN [facility] [address] [address] Performing Lab: [facility]ERYRW[facility]ENTERN [facility]ENTERUSETS [address] [address] VITAMIN D (25-[place]) 50 ng/mL 20-50 Apr 21, 2024 07:40 AM [facility] MAGNESIUM Specimen Type: SERUM No comment entered. Ordering Provider: EDDIE DREW Report Released Date/Time: Apr 15, 2024 04:29 PM Reporting Lab: [facility]ERYRVAUGHAN REG[facility] CENTERTRN [facility] [address] [address] Performing Lab: [facility]ERYRVAUGHAN REG[facility] CENTERTRN [facility] [address] [address] MAGNESIUM 1.9 mg/dL 1.6-2.6 Apr 21, 2024 07:40 AM [facility]ERYRWALK[facility]ENTERN [facility]ENTERUSE[facility] VITAMIN B12 Specimen Type: SERUM No comment entered. Ordering Provider: EDDIE DREW Report Released Date/Time: Apr 15, 2024 04:29 PM Reporting Lab: [facility]ERYRVAUGH[facility] CENTERTRN [facility]ENTERUSETS [address] [address] Performing Lab: [facility]ERYRWALK[facility]ENTERN [facility]ENTERUSETS [address] [address] VITAMIN B12 979 pg/mL H 200-900 Apr 21, 2024 07:40 AM [place] [facility] CBC Specimen Type: BLOOD No comment entered. Ordering Provider: EDDIE DREW Report Released Date/Time: Apr 15, 2024 04:29 PM Reporting Lab: [place] [facility] [address] [facility] [address] Performing Lab: [place] [facility] [address] [facility] [address] WBC 5.97 10*3/uL 4.50-11.00 RBC 4.22 10*6/uL [...] and tobacco- related health factors from the [place] facility where the Encounter took place. Current Smoking Status This section includes the most current smoking, or tobacco-related health factor, from the [place] facility where the Encounter took place. Date/Time Current Smoking Status Comment Susana garcia Apr 25, 2024 11:00 AM VA-TOBACCO NEVER USED [facility]ERYRW[facility]ENTERN [facility]USE[facility] Tobacco Use History This section includes a history of the smoking, or tobacco-related health factors, that were collected on or before the date of the Encounter. The data comes from the [place] facility where the Encounter took place. Date/Time Smoking Status/Tobacco Use Comment F acility Jul 14, 2022 01:00 PM VA-TOBACCO NEVER USED [facility] [place] [facility] Feb 04, 2021 01:30 PM VA-TOBACCO NEVER USED [facility] [place] [facility] Jul 29, 2018 12:31 PM VA-TOBACCO NEVER USED [place] [facility] [place] [facility] Aug 17, 2017 03:43 PM LIFETIME NON-TOBACCO USER [place] [facility] [place] [facility] Apr 12, 2016 08:58 AM QUIT TOBACCO USE > 7 YEARS AGO [facility] Feb 08, 2015 08:25 AM QUIT TOBACCO USE > 7 YEARS AGO [facility] Radiology Reports: +/- 30 days of [...] the Encounter. The data comes from all [place] treatment facilities. Date/Time Radiology Report Provider Source May 09, 2024 02:30 PM OUTSIDE MAMMO/SCRE ENING, INCLUDING CAD, BILAT: LEILANI CALLAWAY [id number] [phone] Exm Date: MAY 09, 2024@14:30 Req Phys: EDDIE DREW Loc: CWM/NO/PACT 6 [facility] (Req'g Loc) Img Loc: OUTSIDE GENERAL RADIOLOGY Service: Unknown Screen: Patient is unable to answer or is unsure Screen Comment: cc exam (Case 181 COMPLETE) OUTSIDE MAMMO/SCREENING, INCLUDIN(RAD Detailed) CPT:05359 Reason for Study: annual screening mammogram Clinical History: Report Status: Electronically Filed Date Reported: MAY 09, 2024 Report: Community care exam; see CPRS/JLV for outside radiology report/results Impression: Community care exam; see CPRS/JLV for outside radiology report/results Primary Diagnostic Code: BI-RADS CATEGORY 1 (Negative) VERIFIED BY: / *ELECTRONICALLY FILED* [facility] Encounter Notes: All associated encounter notes This section contains the clinical notes associated to the Encounter. Date/Time Encounter Note(s) Provider Source May 09, 2024 12:00 AM NONVA CONSULT: LOCAL TITLE: COMMUNITY CARE-CONSULT RESULT NOTE STANDARD TITLE: NONVA CONSULT DATE OF NOTE: MAY 09, 2024 ENTRY DATE: MAY 19, 2024@13:58:33 AUTHOR: RANDOLPH VARGAS [place] EXP COSIGNER: URGENCY: STATUS: COMPLETED VistA Imaging - Scanned Document SCANNED DOCUMENT SIGNATURE NOT REQUIRED Electronically Filed: 05/19/2024 by: RANDOLPH VARGAS RED CROSS WORKER RANDOLPH VARGAS [place] [facility]
--- OUTSIDE RECORDS SUMMARY | 2024-08-28 07:37 | XMS_ITS | Encounter Summary ---
Author Name [place] Address [address] [place] [id number] Care Team Providers Care Punch Operator Name Role Phone EDDIE CHESTER Primary Care [...] PRESCRIPT ION RX730 1 Aug 13, 2017 [id number] LAKESHA CALLAWAY PATIENT [facility] PRESCRIPT ION [id number] 1 Aug 13, 2017 [id number] [phone] LAKESHA CALLAWAY PATIENT [facility] BIN [id number] PRESCRIPT ION [facility] HP Jun 13, 2014 RXTHP [id number] [phone] LAKESHA CALLAWAY PATIENT OPTUM RX PRESCRIPT ION RX Aug 13, 2022 THPRX [id number] LAKESHA CALLAWAY PATIENT OPTUM RX PRESCRIPT ION RX Aug 13, 2022 THPRX [id number] LAKESHA CALLAWAY PATIENT [facility] POINT OF SERVICE [facility] PLAN Jan 11, 2019 [id number] [phone] LAKESHA CALLAWAY PATIENT [facility] POINT OF SERVICE Aug 13, 2017 [id number] [phone] LAKESHA CALLAWAY PATIENT [facility] Aug 13, 2017 [id number] LAKESHA CALLAWAY PATIENT [facility] PLAN USFHP Aug 13, 2017 USP [id number] [phone] LAKESHA CALLAWAY PATIENT [facility] PLAN BOB Meraz Aug 13, 2017 [id number] LAKESHA CALLAWAY PATIENT [facility] PLAN BHAVESH KATHIA(W NR) Aug 13, 2017 [facility] [id number] LAKESHA CALLAWAY PATIENT [facility] PLAN USFHP BOB HERMOSILLO Aug 13, 2017 [facility] [id number] LAKESHA CALLAWAY PATIENT [facility] (WNR) TRICA RE(WN R) Aug 13, 2017 (WNR) [id number] LAKESHA CALLAWAY PATIENT Selected Encounter This section includes the information on record at [place] for the Encounter. Date/Time Encounter Type Encounter Description Reason Provider Source Apr 15, 2024 03:08 PM Outpatient Encounter PRIMARY CARE/MEDICINE GEM XAVIER Encounter Template Text not used by [place] Plan of Treatment: Future Appointments (+ 6 months) and Future Tests (+/- 45 days) The Plan of Treatment section includes future care activities for the patient from all [place] [facility]. This section includes future appointments and future [...] 25, 2024 11:00 AM AMBULATORY - [place]ICINE [place] [facility] [place] [facility] May 09, 2024 02:45 PM AMBULATORY - MEDICINE [place] [facility] [place] [facility] Jul 17, 2024 02:00 PM AMBULATORY - [facility]ICIN [facility] [place] [facility] Aug 08, 2024 03:00 PM AMBULATORY - REHAB MEDICIN E [facility] [place] [facility] Oct 06, 2024 02:30 PM AMBULATORY - MEDICINE [place] [facility] [place] [facility] Active, Pending, and Scheduled Orders This section includes a listing of several types of active, pending, and scheduled orders, including clinic medications orders, diagnostic test orders, procedure orders and consult orders; where the start date of the order is 45 days before the date of the Encounter or 45 days after the date of theEncounter. The data comes from all [place] treatment facilities. Test Date/Time Test Type Test Details Facility Name Apr 25, 2024 12:00 PM Consult Order COMMUNITY CARE-FORECLOSURE SPECIALIST Cons Head Mva Reactor Operator's Choice [facility] Lab Results: +/- 30 days of the encounter This section includes the Chemistry and Hematology Lab Results on record with [place] for the patient. Radiology Reports and Pathology Reports are provided separately, in subsequent sections. Lab Results This section contains the Chemistry/Hematology Results that were resulted 30 days before or 30 daysafter the date of the Encounter. Date/Time Source Result Type Result - Unit Interpretation Reference Range Comment Apr 21, 2024 07:40 AM [facility] FOLATE (WROX) Specimen Type: SERUM No comment entered. Ordering Provider: EDDIE CHESTER Report Released Date/Time: Apr 15, 2024 04:29 PM Reporting Lab: [facility] [address] [facility] [address] Performing Lab: [facility] [address] [facility] [address] FOLATE (WROX) 11.94 ng/mL >5.2 Apr 21, 2024 07:40 AM [facility] BASIC METABOLIC PANEL (non-fasting) Specimen Type: SERUM No comment entered. Ordering Provider: EDDIE CHESTER Report Released Date/Time: Apr 15, 2024 04:29 PM Reporting Lab: [facility] [address] [facility] [address] Performing Lab: [facility] [address] [facility] [facility] [address] UREA NITROGEN 29 mg/dL H 7-25 GLUCOSE 99 mg/dL 65-100 SODIUM 137 mmol/L 135-145 POTASSIUM 4.2 mmol/L 3.5-5.0 CHLORIDE 108 mmol/L 100-110 CO2 21 meq/L 20-30 CREATININE, Serum 0.77 mg/dL 0.50-1.40 eGFR(CKD-EPI 2020) >90 mL/min >60 Apr 21, 2024 07:40 AM [facility] LIVER FUNCTION Specimen Type: SERUM No comment entered. Ordering Provider: EDDIE CHESTER Report Released Date/Time: Apr 15, 2024 04:29 PM Reporting Lab: [facility] [address] [facility] [facility] [address] Performing Lab: [address] [address] PROTEIN,TOTAL 6.7 g/dL 6.0-8.3 ALBUMIN 4.1 g/dL 3.5-5.0 ALKALINE PHOSPHATASE 61 U/L 40-150 AST 20 U/L 5-34 ALT 21 U/L BILIRUBIN, TOTAL 0.2 mg/dL 0.2-1.2 Apr 21, 2024 07:40 AM [facility] LIPID PANEL, NON FASTING Specimen Type: SERUM No comment entered. Ordering Provider: EDDIE CHESTER Report Released Date/Time: Apr 15, 2024 04:29 PM Reporting Lab: [address] [address] Performing Lab: [address] [address] CHOLESTEROL 219 mg/dL H TRIGLYCERIDE 29 mg/dL 0-150 LDL calculated 118 mg/dL 0-129 CHOL/HDL 2.3 HDL CHOLESTEROL 95 mg/dL H 40-60 Apr 21, 2024 07:40 AM [facility] CALCIUM Specimen Type: SERUM No comment entered. Ordering Provider: EDDIE CHESTER Report Released Date/Time: Apr 15, 2024 04:29 PM Reporting Lab: [address] [address] Performing Lab: [address] [address] CALCIUM 9.4 mg/dL 8.5-10.2 Apr 21, 2024 07:40 AM [facility] TSH Specimen Type: SERUM No comment entered. Ordering Provider: EDDIE CHESTER Report Released Date/Time: Apr 15, 2024 04:29 PM Reporting Lab: [facility] [address] [facility] [address] Performing Lab: [address] [address] TSH 1.78 u[IU]/mL 0.35-5.00 Apr 21, 2024 07:40 AM [facility] HEMOGLOBIN A1C PANEL Specimen Type: BLOOD [...] Apr 15, 2024 04:29 PM Reporting Lab: [address] [address] Performing Lab: [address] [address] HEMOGLOBIN A1C 5.1 4.0-5.6 Apr 21, 2024 07:40 AM [facility] IRON & TIBC PANEL Specimen Type: SERUM No comment entered. Ordering Provider: EDDIE CHESTER Report Released Date/Time: Apr 15, 2024 04:29 PM Reporting Lab: [address] [address] Performing Lab: [address] [address] TIBC 374 ug/dL 204-475 IRON 58 ug/dL 40-160 Transferrin Saturation 15.5 L 20.0-50.0 Transferrin (TRF) 283 mg/dL 200-360 Apr 21, 2024 07:40 AM [facility] FERRITIN Specimen Type: SERUM No comment entered. Ordering Provider: EDDIE CHESTER Report Released Date/Time: Apr 15, 2024 04:29 PM Reporting Lab: [facility] [place] [facility] [address] [facility] [address] Performing Lab: [facility] [place] [facility] [address] [facility] [address] FERRITIN 51 ng/mL 10-200 Apr 21, 2024 07:40 AM [facility] [place] [facility] MAGNESIUM Specimen Type: SERUM No comment entered. Ordering Provider: EDDIE CHESTER Report Released Date/Time: Apr 15, 2024 04:29 PM Reporting Lab: [facility] [place] [facility] [address] [facility] [address] Performing Lab: [facility] [place] [facility] [address] [facility] [address] MAGNESIUM 1.9 mg/dL 1.6-2.6 Apr 21, 2024 07:40 AM [facility] [place] [facility] VITAMIN D (25-OH) Specimen Type: SERUM No comment entered. Ordering Provider: EDDIE CHESTER Report Released Date/Time: Apr 15, 2024 04:29 PM Reporting Lab: [facility] [place] [facility] [address] [facility] [address] Performing Lab: [facility] [place] [address] [address] VITAMIN D (25-OH) 50 ng/mL 20-50 Apr 21, 2024 07:40 AM [facility] VITAMIN B12 Specimen Type: SERUM No comment entered. Ordering Provider: EDDIE CHESTER Report Released Date/Time: Apr 15, 2024 04:29 PM Reporting Lab: [facility] [place] [facility] [address] [facility] [address] Performing Lab: [facility] [place] [address] [address] VITAMIN B12 979 pg/mL H 200-900 Apr 21, 2024 07:40 AM [facility] [place] [facility] CBC Specimen Type: BLOOD No comment entered. Ordering Provider: EDDIE CHESTER Report Released Date/Time: Apr 15, 2024 04:29 PM Reporting Lab: [facility] [place] [facility] [address] [facility] [address] Performing Lab: [facility] [address] [facility] [facility] [address] WBC 5.97 10*3/uL 4.50-11.00 RBC 4.22 10*6/uL [...] 14, 2022 01:00 PM VA-TOBACCO NEVER USED [facility] Tobacco Use History This section includes a history of the smoking, or tobacco-related health factors, that were collected on or before the date of the Encounter. The data comes from the [place] facility where the Encounter took place. Date/Time Smoking Status/Tobacco Use Comment F acgianfranco Feb 04, 2021 01:30 PM VA-TOBACCO NEVER USED [facility] Jul 29, 2018 12:31 PM VA-TOBACCO NEVER USED [facility] Aug 17, 2017 03:43 PM LIFETIME NON-TOBACCO USER [facility] Apr 12, 2016 08:58 AM QUIT TOBACCO USE > 7 YEARS AGO [facility] Feb 08, 2015 08:25 AM QUIT TOBACCO USE > 7 YEARS AGO [facility] Radiology Reports: +/- 30 days of the [...] the Encounter. The data comes from all [place] treatment facilities. Date/Time Radiology Report Provider Source May 09, 2024 02:30 PM OUTSIDE MAMMO/SCRE ENING, INCLUDING CAD, BILAT: LEILANI CALLAWAY [id number] Exm Date: MAY 09, 2024@14:30 Req Phys: EDDEI CHESTER Loc: CWM/NO/PACT 6 WH (Req'g Loc) Img Loc: OUTSIDE GENERAL RADIOLOGY Service: Unknown Screen: Patient is unable to answer or is unsure Screen Comment: cc exam (Case [id number] COMPLETE) OUTSIDE MAMMO/SCREENING, INCLUDIN(RAD Detailed) CPT:80108 Reason for Study: annual screening mammogram Clinical History: Report Status: Electronically Filed Date Reported: MAY 09, 2024 Report: Community care exam; see CPRS/JLV for outside radiology report/results Impression: Community care exam; see CPRS/JLV for outside radiology report/results Primary Diagnostic Code: BI-RADS CATEGORY 1 (Negative) VERIFIED BY: / *ELECTRONICALLY FILED* [facility] Encounter Notes: All associated encounter notes This section contains the clinical notes associated to the Encounter. Date/Time Encounter Note(s) Provider Source Apr 15, 2024 03:08 PM PRIMARY CARE SECUR E MESSAGING: LOCAL TITLE: PRIMARY CARE SECURE MESSAGING STANDARD TITLE: PRIMARY CARE SECURE MESSAGING DATE OF NOTE: APR 15, 2024@15:08 ENTRY DATE: APR 15, 2024@15:08:11 AUTHOR: GEM XAVIER COSIGNER: URGENCY: STATUS: COMPLETED ------Original Message ----- Sent: 04/14/2024 05:18 AM ET From: LEILANI CALLAWAY To: VIKI,N_PRIMARY CARE_[facility] Subject: General:Fasting labs I plan to get my labs done on April 21 in advance of my annual appointment with Dr Chester on April 25. Just wanted to message in advance to ensure the labs are ordered. Thank you! /renetta/ Gem Xavier RN Primary Care Staff Nurse Signed: 04/15/2024 15:08 GEM XAVIER [facility] [facility]
--- OUTSIDE RECORDS SUMMARY | 2024-08-28 07:37 | XMS_ITS | Encounter Summary ---
Author Name Department [place] Address [address] [place] [address] Care Team Providers Care Teacher Home Therapy Name Role Phone EDDIE CHESTER Primary Care [...] PRESCRIPT ION RX730 1 Aug 13, 2017 [id number] LAKESHA CALLAWAY PATIENT [place] PRESCRIPT ION RX730 1 Aug 13, 2017 [id number] LAKESHA CALLAWAY PATIENT [place] BIN [id number] PRESCRIPT ION [facility] HP Jun 13, 2014 RXTHP [id number] [phone] LAKESHA CALLAWAY PATIENT OPTUM RX PRESCRIPT ION RX Aug 13, 2022 THPRX [id number] LAKESHA CALLAWAY PATIENT OPTUM RX PRESCRIPT ION RX Aug 13, 2022 THPRX [phone] LAKESHA CALLAWAY PATIENT [facility] POINT OF SERVICE [facility] PLAN Jan 11, 2019 [id number] [phone] LAKESHA CALLAWAY PATIENT [facility] POINT OF SERVICE Aug 13, 2017 [id number] LAKESHA CALLAWAY PATIENT [facility] Aug 13, 2017 [id number] LAKESHA CALLAWAY PATIENT [facility] PLAN BRIGH XIOMY HERMOSILLON E Aug 13, 2017 [id number] LAKESHA CALLAWAY PATIENT [facility] PLAN USFHP Aug 13, 2017 [facility] [id number] LAKESHA CALLAWAY PATIENT [facility] PLAN BHAVESH KATHIA(W NR) Aug 13, 2017 [facility] [id number] LAKESHA CALLAWAY PATIENT [facility] PLAN USP BOB HERMOSILLO Aug 13, 2017 [facility] [id number] LAKESHA CALLAWAY PATIENT [facility] (WNR) MARY JOA RE(WN R) Aug 13, 2017 (WNR) [id number] [phone] LAKESHA CALLAWAY PATIENT Selected Encounter This section includes the information on record at [place] for the Encounter. Date/Time Encounter Type Encounter Description Reason Provider Source Jan 16, 2024 07:36 AM Outpatient Encounter PRIMARY CARE/MEDICINE JM MONAE Encounter Template Text not used by [place] Plan of Treatment: Future Appointments (+ 6 months) and Future Tests (+/- 45 days) The Plan of Treatment section includes future care activities for the patient from all [place] [facility]. This section includes future appointments and future orders which are active, pending or scheduled. Future Appointments This section includes appointments that were scheduled to occur 6 months from the date of the Encounter, up to a maximum of 20 appointments. The data comes from all [place] treatment facilities. Appointment Date/Time Appointment Type Appointme nt Facility Name Feb 19, 2024 11:00 AM AMBULATORY - MEDICINE [place] [facility] [facility] Apr 25, 2024 11:00 AM AMBULATORY - MEDICINE [place] [facility] [place] [facility] May 09, 2024 02:45 PM AMBULATORY - MEDICINE [place] [facility] [place] [facility] Jul 17, 2024 02:00 PM [facility]BULAT[facility] Social History: Smoking Status (Most current) and Tobacco Use (All prior to encounter date) This section includes the most current, and the historical, smoking and tobacco- related health factors from the [place] facility where the Encounter took place. Current Smoking Status This section includes the most current smoking, or tobacco-related health factor, from the [place] facility where the Encounter took place. Date/Time Current Smoking Status Comment Susana ity Jul 14, 2022 01:00 PM [facility]TO[facility]ACCO [facility] Tobacco Use History This section includes a history of the smoking, or tobacco-related health factors, that were collected on or before the date of the Encounter. The data comes from the [place] facility where the Encounter took place. Date/Time Smoking Status/Tobacco Use Comment F acility Feb 04, 2021 01:30 PM VA-TOBACCO NEVER USED [place] [facility] [place] [facility] Jul 29, 2018 12:31 PM VA-TOBACCO NEVER USED [place] [facility] [place] [facility] Aug 17, 2017 03:43 PM LIFETIME NON-TOBACCO USER [place] [facility] [place] [facility] Apr 12, 2016 08:58 AM QUIT TOBACCO USE > 7 YEARS AGO [place] [facility] [place] [facility] Feb 08, 2015 08:25 AM QUIT TOBACCO USE > 7 YEARS AGO [place] [facility] [place] [facility] Encounter Notes: All associated encounter notes This section contains the clinical notes associated to the Encounter. Date/Time Encounter Note(s) Provider Source Jan 16, 2024 10:24 AM ADDENDUM: LOCAL TITLE: Addendum STANDARD TITLE: ADDENDUM DATE OF NOTE: JAN 16, 2024@10:24:45 ENTRY DATE: JAN 16, 2024@10:24:47 AUTHOR: EDDIE CHESTER EXP COSIGNER: URGENCY: STATUS: COMPLETED Hello Ms. Callaway, I think it may be helpful to see ENT. I see that you are already taking an antihistamine (cetrizine) and FLonase so please continue with that. I am referring you to see Dr. Caballero, the ENT specialist here at [place]. You will be contacted about that appointments. Sincerely, Dr. Chester /renetta/ EDDIE CHESTER M.D. PHYSICIAN Signed: 01/16/2024 10:26 Receipt Acknowledged By: 01/16/2024 10:55 /renetta/ JM MONAE, MSN, RN, CNL PRIMARY CARE TEAM NURSE --- Original Document --- 01/16/24 PRIMARY CARE SECURE MESSAGING: ------Original Message ----- Sent: 01/14/2024 12:41 PM ET From: LEILANI CALLAWAY To: Rich CHESTER_PRIMARY CARE_[facility] Subject: General:Sinus worries I have been getting very frequent sinus infections - almost every time I have any URI. They end up being fairly incompacitating since I'm allergic to pretty much every antibiotic. I noticed on my brain MRI a large septal defect was noted, which I already suspected. Is there anyone I can talk to about addressing fixing this? I'm getting sick about every 4-6 weeks. It doesn't help that I see Covid and flu patients before they have labs done showing they're Covid/flu positive. I blame the over zealous hospitalists for that. The davis thing is I barely have to get sick for it to start spiraling quickly. I've had all my immunizations and boosters updated to last May but have still gotten mild flu that turned into a not mild sinus issue, now I may have mild Covid but feel my ears starting to ache and my head/ears feeling very full . Maybe an EENT consult? /es/ JM MONAE, CHRISTIANO, RN, CNL PRIMARY CARE TEAM NURSE Signed: 01/16/2024 08:36 Receipt Acknowledged By: 01/16/2024 10:23 /es/ EDDIE CHESTER M.D. PHYSICIAN 01/16/2024 ADDENDUM STATUS: UNSIGNED You may not VIEW this UNSIGNED Addendum. EDDIE CHESTER [facility] [place] [facility] Jan 16, 2024 07:36 AM PRIMARY CARE SECUR E MESSAGING: LOCAL TITLE: PRIMARY CARE SECURE MESSAGING STANDARD TITLE: PRIMARY CARE SECURE MESSAGING DATE OF NOTE: JAN 16, 2024@07:36 ENTRY DATE: JAN 16, 2024@08:36:50 AUTHOR: JM MONAE EXP COSIGNER: URGENCY: STATUS: COMPLETED PRIMARY CARE SECURE MESSAGING Has ADDENDA ------Original Message ----- Sent: 01/14/2024 12:41 PM ET From: LEILANI CALLAWAY To: Rich CHESTER_PRIMARY CARE_[facility] Subject: General:Sinus worries I have been getting very frequent sinus infections - almost every time I have any URI. They end up being fairly incompacitating since I'm allergic to pretty much every antibiotic. I noticed on my brain MRI a large septal defect was noted, which I already suspected. Is there anyone I can talk to about addressing fixing this? I'm getting sick about every 4-6 weeks. It doesn't help that I see Covid and flu patients before they have labs done showing they're Covid/flu positive. I blame the over zealous hospitalists for that. The davis thing is I barely have to get sick for it to start spiraling quickly. I've had all my immunizations and boosters updated to last May but have still gotten mild flu that turned into a not mild sinus issue, now I may have mild Covid but feel my ears starting to ache and my head/ears feeling very full . Maybe an EENT consult? /renetta/ JM MONAE, MSN, RN, CNL PRIMARY CARE TEAM NURSE Signed: 01/16/2024 08:36 Receipt Acknowledged By: 01/16/2024 10:23 /renetta/ EDDIE CHESTER M.D. PHYSICIAN 01/16/2024 ADDENDUM STATUS: COMPLETED [facility] Ms. Callaway, I think it may be helpful to see ENT. I see that you are already taking an antihistamine (cetrizine) and FLonase so please continue with that. I am referring you to see Dr. Caballero, the ENT specialist here at [place]. You will be contacted about that appointments. Sincerely, Dr. Chester /renetta/ EDDIE CHESTER M.D. PHYSICIAN Signed: 01/16/2024 10:26 Receipt Acknowledged By: 01/16/2024 10:55 /renetta/ JM MONAE, MSN, RN, CNL PRIMARY CARE TEAM NURSE 01/16/2024 ADDENDUM STATUS: COMPLETED Secure message sent via [facility] /renetta/ CHRISTIANO MANN, RN, CNL PRIMARY CARE TEAM NURSE Signed: 01/16/2024 10:56 JM MONAE [facility]
--- OUTSIDE RECORDS SUMMARY | 2024-08-28 07:37 | XMS_ITS ---
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 Name Role Phone EDDIE DREW Primary Care [...] PRESCRIPT ION [id number] 1 Aug 13, 2017 [id number] [phone] LAKESHA CALLAWAY PATIENT [place] PRESCRIPT ION [id number] 1 Aug 13, 2017 [id number] [phone] LAKESHA CALLAWAY PATIENT [place] BIN [id number] PRESCRIPT ION [facility] HP Jun 13, 2014 [phone] LAKESHA CALLAWAY PATIENT [facility] RX PRESCRIPT ION RX Aug 13, 2022 [id number] [id number] LAKESHA CALLAWAY PATIENT [facility] RX PRESCRIPT ION RX Aug 13, 2022 THPRX [phone] LAKESHA CALLAWAY PATIENT [facility] POINT OF SERVICE [facility] PLAN Jan 11, 2019 [id number] [phone] LAKESHA CALLAWAY PATIENT [facility] POINT OF SERVICE Aug 13, 2017 [id number] LAKESHA CALLAWAY PATIENT [facility] Aug 13, 2017 [id number] LAKESHA CALLAWAY PATIENT [facility] HEALTH PLAN BOB HERMOSILLON E Aug 13, 2017 [id number] [phone] LAKESHA CALLAWAY PATIENT [facility] HEALTH PLAN USFHP Aug 13, 2017 [facility] [id number] LAKESHA CALLAWAY PATIENT [facility] PLAN BHAVESH KATHIA(W NR) Aug 13, 2017 [facility] [id number] LAKESHA CALLAWAY PATIENT [facility] PLAN USP BOB HERMOSILLO Aug 13, 2017 [facility] [id number] LAKESHA CALLAWAY PATIENT [facility] (WNR) TRICA RE(WN R) Aug 13, 2017 (WNR) [id number] [phone] LAKESHA CALLAWAY PATIENT Selected Encounter This section includes the information on record at [place] for the Encounter. Date/Time Encounter Type Encounter Description Reason Pro vider Source Apr 25, 2024 12:02 PM Outpatient Encounter PRIMARY CARE/MEDICINE IHE Encounter Template Text not used by [place] [...] 2024 02:45 PM AMBULATORY - MEDICINE [facility] [place] [facility] Jul 17, 2024 02:00 PM [facility] [place] [facility] Aug 08, 2024 03:00 PM AMBULATORY - REHAB MEDICIN E [place] [facility] [facility] Oct 06, 2024 02:30 PM [facility] Active, Pending, and Scheduled Orders This [...] 25, 2024 12:00 PM Consult Order [facility] Cons Jailer Chief's Choice [facility]Dnev[facility]USE[facility] Lab Results: +/- 30 days of the encounter This section includes the Chemistry and Hematology Lab Results on record with [place] for the patient. Radiology Reports and Pathology Reports are provided separately, in subsequent sections. Lab Results This section contains the Chemistry/Hematology Results that were resulted 30 days before or 30 daysafter the date of the Encounter. Date/Time Source Result Type Result - Unit Interpretation Reference Range Comment May 19, 2024 12:00 AM [facility] OCCULT BLOOD FIT X1 SCREEN(IN-HOUSE) Specimen Type: FECES No comment entered. Ordering Provider: EDDIE DREW Report Released Date/Time: Apr 25, 2024 12:00 PM Reporting Lab: [facility] [address] [facility] [address] Performing Lab: [facility] [address] [facility] [address] OCCULT BLOOD (FIT)#1 OF 1 Negative NEG Apr 21, 2024 07:40 AM [facility] FOLATE (WROX) Specimen Type: SERUM No comment entered. Ordering Provider: EDDIE DREW Report Released Date/Time: Apr 15, 2024 04:29 PM Reporting Lab: [facility] [address] [facility] [address] Performing Lab: [facility] [address] [facility] [address] FOLATE (WROX) 11.94 ng/mL >5.2 Apr 21, 2024 07:40 AM [facility] BASIC METABOLIC PANEL (non-fasting) Specimen Type: SERUM No comment entered. Ordering Provider: EDDIE DREW Report Released Date/Time: Apr 15, 2024 04:29 PM Reporting Lab: [facility] [address] [facility] [address] Performing Lab: [facility] [address] [facility] [address] UREA NITROGEN 29 mg/dL H 7-25 GLUCOSE 99 mg/dL 65-100 SODIUM 137 mmol/L 135-145 POTASSIUM 4.2 mmol/L 3.5-5.0 CHLORIDE 108 mmol/L 100-110 CO2 21 meq/L 20-30 CREATININE, Serum 0.77 mg/dL 0.50-1.40 eGFR(CKD-EPI 2020) >90 mL/min >60 Apr 21, 2024 07:40 AM [facility] LIPID PANEL, NON FASTING Specimen Type: SERUM No comment entered. Ordering Provider: EDDIE DREW Report Released Date/Time: Apr 15, 2024 04:29 PM Reporting Lab: [address] [address] Performing Lab: [address] [address] CHOLESTEROL 219 mg/dL H TRIGLYCERIDE 29 mg/dL 0-150 LDL calculated 118 mg/dL 0-129 CHOL/HDL 2.3 HDL CHOLESTEROL 95 mg/dL H 40-60 Apr 21, 2024 07:40 AM [facility] LIVER FUNCTION Specimen Type: SERUM No comment entered. Ordering Provider: EDDIE DREW Report Released Date/Time: Apr 15, 2024 04:29 PM Reporting Lab: [address] [address] Performing Lab: [address] [address] PROTEIN,TOTAL 6.7 g/dL 6.0-8.3 ALBUMIN 4.1 g/dL 3.5-5.0 ALKALINE PHOSPHATASE 61 U/L 40-150 AST 20 U/L 5-34 ALT 21 U/L BILIRUBIN, TOTAL 0.2 mg/dL 0.2-1.2 Apr 21, 2024 07:40 AM [facility] CALCIUM Specimen Type: SERUM No comment entered. Ordering Provider: EDDIE DREW Report Released Date/Time: Apr 15, 2024 04:29 PM Reporting Lab: [facility] [place] [facility] [address] [facility] [address] Performing Lab: [facility] [place] [facility] [address] [facility] [address] CALCIUM 9.4 mg/dL 8.5-10.2 Apr 21, 2024 07:40 AM [facility] [place] [facility] TSH Specimen Type: SERUM No comment entered. Ordering Provider: EDDIE DREW Report Released Date/Time: Apr 15, 2024 04:29 PM Reporting Lab: [facility] [place] [facility] [address] [facility] [address] Performing Lab: [place] [address] [address] TSH 1.78 u[IU]/mL 0.35-5.00 Apr 21, 2024 07:40 AM [facility] [place] [facility] HEMOGLOBIN A1C PANEL Specimen Type: BLOOD [...] Apr 15, 2024 04:29 PM Reporting Lab: [place] [facility] [place] [facility] [address] [facility] [address] Performing Lab: [place] [facility] [place] [facility] [address] [facility] [address] HEMOGLOBIN A1C 5.1 4.0-5.6 Apr 21, 2024 07:40 AM [facility] [place] [facility] FERRITIN Specimen Type: SERUM No comment entered. Ordering Provider: EDDIE DREW Report Released Date/Time: Apr 15, 2024 04:29 PM Reporting Lab: [place] [facility] [place] [facility] [address] [facility] [address] Performing Lab: [place] [address] [address] FERRITIN 51 ng/mL 10-200 Apr 21, 2024 07:40 AM [facility] MAGNESIUM Specimen Type: SERUM No comment entered. Ordering Provider: EDDIE DREW Report Released Date/Time: Apr 15, 2024 04:29 PM Reporting Lab: [facility]TR[facility] [address] [facility] [address] Performing Lab: [facility] SYSTEMTRN [facility] [address] [address] MAGNESIUM 1.9 mg/dL 1.6-2.6 Apr 21, 2024 07:40 AM [facility] IRON & TIBC PANEL Specimen Type: SERUM No comment entered. Ordering Provider: EDDIE DREW Report Released Date/Time: Apr 15, 2024 04:29 PM Reporting Lab: [facility] SYSTEMTRN [facility] [address] [address] Performing Lab: [facility]ITAL[facility] SYSTEMTRN [facility] [address] [address] TIBC 374 ug/dL 204-475 IRON 58 ug/dL 40-160 Transferrin Saturation 15.5 L 20.0-50.0 Transferrin (TRF) 283 mg/dL 200-360 Apr 21, 2024 07:40 AM [facility] VITAMIN D (25-OH) Specimen Type: SERUM No comment entered. Ordering Provider: EDDIE DREW Report Released Date/Time: Apr 15, 2024 04:29 PM Reporting Lab: [facility]TR[facility] [place] [address] [address] Performing Lab: [facility] SYSTEMTRN [facility] [address] [address] VITAMIN D (25-OH) 50 ng/mL 20-50 Apr 21, 2024 07:40 AM [facility] VITAMIN B12 Specimen Type: SERUM No comment entered. Ordering Provider: EDDIE DREW Report Released Date/Time: Apr 15, 2024 04:29 PM Reporting Lab: [facility] SYSTEMTR[facility] [place] [address] [address] Performing Lab: [facility] [address] [facility] [address] VITAMIN B12 979 pg/mL H 200-900 Apr 21, 2024 07:40 AM [facility] CBC Specimen Type: BLOOD No comment entered. Ordering Provider: EDDIE DREW Report Released Date/Time: Apr 15, 2024 04:29 PM Reporting Lab: [facility] [address] [facility] [address] Performing Lab: [facility] [address] [facility] [address] WBC 5.97 10*3/uL 4.50-11.00 RBC 4.22 10*6/uL [...] Source Apr 25, 2024 11:46 AM 108/74 [place] [facility] [place] [facility] Apr 25, 2024 11:43 AM 134 25 [place] [facility] [facility] Apr 25, 2024 11:09 AM 89 133/94 [place] [facility] [facility] Apr 25, 2024 11:02 AM 98.3 89 18 99 [place] [facility] [facility] Apr 25, 2024 11:02 AM 131/89 [place] [facility] [place] [facility] Social History: Smoking Status (Most [...] 25, 2024 11:00 AM VA-TOBACCO NEVER USED [facility] Tobacco Use History This section includes a history of the smoking, or tobacco-related health factors, that were collected on or before the date of the Encounter. The data comes from the [place] facility where the Encounter took place. Date/Time Smoking Status/Tobacco Use Comment F acility Jul 14, 2022 01:00 PM VA-TOBACCO NEVER USED [facility] Feb 04, 2021 01:30 PM VA-TOBACCO NEVER USED [place] [facility] [facility] Jul 29, 2018 12:31 PM VA-TOBACCO NEVER USED [facility] Aug 17, 2017 03:43 PM LIFETIME NON-TOBACCO USER [place] [facility] [facility] Apr 12, 2016 08:58 AM QUIT TOBACCO USE > 7 YEARS AGO [facility] Feb 08, 2015 08:25 AM QUIT TOBACCO USE > 7 YEARS AGO [facility] Radiology Reports: +/- 30 days of [...] the Encounter. The data comes from all [place] treatment facilities. Date/Time Radiology Report Provider Source May 09, 2024 02:30 PM OUTSIDE MAMMO/SCRE ENING, INCLUDING CAD, BILAT: LEILANI CALLAWAY [id number] [phone] Exm Date: MAY 09, 2024@14:30 Req Phys: EDDIE DREW Loc: CWM/NO/PACT 6 WH (Req'g Loc) Img Loc: OUTSIDE GENERAL RADIOLOGY Service: Unknown Screen: Patient is unable to answer or is unsure Screen Comment: cc exam (Case 181 COMPLETE) OUTSIDE MAMMO/SCREENING, INCLUDIN(RAD Detailed) CPT:38147 Reason for Study: annual screening mammogram Clinical History: Report Status: Electronically Filed Date Reported: MAY 09, 2024 Report: Community care exam; see CPRS/JLV for outside radiology report/results Impression: Community care exam; see CPRS/JLV for outside radiology report/results Primary Diagnostic Code: BI-RADS CATEGORY 1 (Negative) VERIFIED BY: / *ELECTRONICALLY FILED* [facility] Encounter Notes: All associated encounter notes This section contains the clinical notes associated to the Encounter. Date/Time Encounter Note(s) Provider Source Apr 25, 2024 12:02 PM ADMINISTRATIVE NOT E: LOCAL TITLE: ADMINISTRATIVE RECALL NOTE STANDARD TITLE: ADMINISTRATIVE NOTE DATE OF NOTE: APR 25, 2024@12:02 ENTRY DATE: APR 25, 2024@12:03:01 AUTHOR: MARINA HANNA EXP COSIGNER: URGENCY: STATUS: COMPLETED RTC orders: Unable to contact patient: Attempts to contact: 1st attempt: Left voicemail 2nd attempt: Letter mailedDisposition onSep 3rd attempt: 4th attempt: /renetta/ MARINA HANNA [employer] Signed: 04/25/2024 12:03 MARINA HANNA [facility]
--- OUTSIDE RECORDS SUMMARY | 2024-08-28 07:37 | XMS_ITS ---
Author Name [facility] [place] [facility] [place] Organization [facility] [facility] [place] Address [address] [place] [id number] Care Team Providers Care Retail Visual Merchandiser Name Role Phone EDDIE DREW Primary Care [...] PRESCRIPT ION [id number] 1 Aug 13, 2017 [id number] [phone] LAKESHA CALLAWAY PATIENT [place] PRESCRIPT ION [id number] 1 Aug 13, 2017 [id number] LAKESHA CALLAWAY PATIENT [place] BIN [id number] PRESCRIPT ION [facility] HP Jun 13, 2014 [id number] [phone] LAKESHA CALLAWAY PATIENT [facility] PRESCRIPT ION RX Aug 13, 2022 THPRX [id number] LAKESHA CALLAWAY PATIENT [facility] RX PRESCRIPT ION RX Aug 13, 2022 THPRX [id number] LAKESHA CALLAWAY PATIENT [facility] SERVICE [facility] PL[facility] Jan 11, 2019 [id number] [phone] LAKESHA CALLAWAY PATIENT [facility] SERVICE Aug 13, 2017 [id number] LAKESHA CALLAWAY PATIENT [facility] Aug 13, 2017 [facility] [id number] LAKESHA CALLAWAY PATIENT [facility] Aug 13, 2017 [facility] [id number] LAKESHA CALLAWAY PATIENT [facility] PL[facility] XIOMY Argueta Aug 13, 2017 [id number] LAKESHA CALLAWAY PATIENT [facility] PLAN BHAVESH KATHIA(W NR) Aug 13, 2017 [facility] [id number] LAKESHA CALLAWAY PATIENT [facility] BOB HERMOSILLO Aug 13, 2017 [facility] [id number] LAKESHA CALLAWAY PATIENT [facility] (WNR) TRICA RE(WN R) Aug 13, 2017 (WNR) [id number] LAKESHA CALLAWAY PATIENT Selected Encounter This section includes the information on record at [place] for the Encounter. Date/Time Encounter Type Encounter Description Reason Provider Source Feb 19, 2024 11:00 AM OFF/OP CNSLTJ NEW/EST MOD 40 OTOLARYNGOLOGY/EN T ICD-10-CM J34.89 Other specified disorders of nose and nasal sinuses BIJAL CABALLERO [facility] Encounter Template Text not used by [place] Assessments - Encounter Diagnoses This section includes the primary and secondary diagnoses documented for the Encounter. Date/Time Primary/Secondary Diagnosis Diagnosis Name Provider Source Feb 20, 2024 07:48 AM PRIMARY Other specified disorders of nose and nasal sinuses BIJAL CABALLERO [facility] Plan of Treatment: Future Appointments (+ 6 months) and Future Tests (+/- 45 days) The Plan of Treatment section includes future care activities for the patient from all [place] treatmentfacilities. This section includes future appointments and [...] 25, 2024 11:00 AM AMBULATORY - MEDICINE [facility] May 09, 2024 02:45 PM AMBULATORY - MEDICINE [facility] [place] [facility] Jul 17, 2024 02:00 PM AMBULATORY - REHAB MEDICIN E [facility] [place] [facility] Aug 08, 2024 03:00 PM AMBULATORY - REHAB MEDICIN E [facility] [place] [facility] Vital Signs: All taken on the encounter date This section contains inpatient and outpatient Vital Signs collected on the date of the Encounter. Date/Time Temperature Pulse Blood Pressure Respiratory Rate SP02 Pain Height Weight Body Mass Index Source Feb 19, 2024 10:51 AM 58 120/90 20 98 0 [place] [facility] [place] [facility] Social History: Smoking Status (Most current) and [...] 14, 2022 01:00 PM VA-TOBACCO NEVER USED [place] [facility] [place] [facility] Tobacco Use History This section includes a history of the smoking, or tobacco-related health factors, that were collected on or before the date of the Encounter. The data comes from the [place] facility where the Encounter took place. Date/Time Smoking Status/Tobacco Use Comment F acility Feb 04, 2021 01:30 PM VA-TOBACCO NEVER USED [facility] [place] [facility] Jul 29, 2018 12:31 PM VA-TOBACCO NEVER USED [facility] [place] [facility] Aug 17, 2017 03:43 PM LIFETIME NON-TOBACCO USER [facility] [place] [facility] Apr 12, 2016 08:58 AM QUIT TOBACCO USE > 7 YEARS AGO [facility] [place] [facility] Feb 08, 2015 08:25 AM QUIT TOBACCO USE > 7 YEARS AGO [facility] [place] [facility] Encounter Notes: All associated encounter notes This section contains the clinical notes associated to the Encounter. Date/Time Encounter Note(s) Provider Source Feb 19, 2024 12:05 PM OTOLARYNGOLOGY CONSULT: LOCAL TITLE: CONSULT REPORT/OTOLARYNGOLOGY STANDARD TITLE: OTOLARYNGOLOGY CONSULT DATE OF NOTE: FEB 19, 2024@12:05 ENTRY DATE: FEB 19, 2024@12:05:57 AUTHOR: BIJAL CABALLERO COSIGNER: URGENCY: STATUS: COMPLETED CONSULT REQUESTED FROM EDDIE DREW FEB 19, 2024 LEILANI CALLAWAY is a 53 y/o smoker WHITE FEMALE, previously in [employer] FROM May TO May from PERIOD OF [employer]ICE - [employer], w/chief complaint of RECURRENT SINUSITIS 53-year-old female referred secondary to recurrent sinusitis and septal perforation. Patient states that she gets recurrent sinusitis frequently. She feels as though she gets them every few months. She states that she is allergic to every antibiotic I have ever taken , therefore she does not take antibiotics for these infections but let some run their course. She states that she often has symptoms of headache, fevers and chills. She does not complain of facial pain or purulent nasal discharge. She takes Flonase and loratadine daily. She does a [place] pot 3 times a week and increases these when she gets infections to 4-5 times a day. 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 She states that she personally has gotten all necessary vaccines. Patient does have a history in the past of cocaine use and she was aware that she did in fact have a septal perforation. She is worried that she might have a saddlenose deformity. Patient had an MRI on May1720 at [facility]. Those images are not available to me to review. They mentioned the large septal perforation but there was no mention of the condition of the sinuses. PMHx: Active problems - Computerized Problem List is the source for the followin. Menopausal flushing 2. Impaired fasting glucose 3. Hyperlipidemia 4. Mantoux: positive 5. Gastroesophageal reflux disease 6. Eating disorder 7. Chronic low back pain 8. Bilateral hearing loss 9. Pituitary macroadenoma 10. Temporomandibular joint disorder 11. Urge incontinence of urine 12. Chronic post-traumatic stress disorder Service Connected Disabilities with % Eligibility: SERVICE CONNECTED 50% to 100% VERIFIED Total S/C %: 90 HYPOTHYROIDISM 0% S/C TINNITUS 10% S/C PARALYSIS OF SCIATIC NERVE 20% S/C KNEE CONDITION 0% S/C HIATAL HERNIA 10% S/C ACNE 0% S/C FOOT CONDITION 0% S/C URTICARIA 0% S/C TRAUMATIC BRAIN DISEASE 0% S/C LIMITED FLEXION OF KNEE 10% S/C BULIMIA NERVOSA 0% S/C POST-TRAUMATIC STRESS DISORDER 70% S/C ACROMEGALY 0% S/C VALVULAR HEART DISEASE 0% S/C ALLERGIC OR VASOMOTOR RHINITIS 0% S/C INTERVERTEBRAL DISC SYNDROME 10% S/C LUMBOSACRAL OR CERVICAL STRAIN 10% S/C IMPAIRED HEARING 0% S/C MEDS: Active Outpatient Medications (including Supplies): CETIRIZINE HCL 10MG TAB TAKE ONE TABLET BY MOUTH ONCE ACTIVE DAILY FOR ALLERGIES CLONAZEPAM 1MG TAB TAKE ONE TABLET BY MOUTH ONCE DAILY ACTIVE NEEDED FOR PANIC DISORDER ESTRADIOL 0.025MG/DAY ([id number]) APPLY 1 PATCH TO ACTIVE SKIN TWO [...] CUTTER MISCELLANEOUS TUMERIC DIRECTED ACTIVE ONCE DAILY ALL: TETRACYCLINE, SULFA DRUGS, BEE STINGS, AUGMENTIN Fam Hx: Non - contributory Soc Hx: FORMER COCAINE ROS: Denies any other relavent ROS Vitals Enter at: Feb 19, 2024@10:51:36 BP: 120/90 P: 58 R: 20 132 lb [59.87 kg] (07/14/2022 13:07) BMI: 24.2 CONSTITUTION: GENERAL APPEARANCE:Well developed, well nourished and groomed. No apparent acute or chronic distress. HEAD, FACE, SALIVARY GLANDS AND TMJ: Palpation of Parotid and Submandibular glands: Normal. Facial Mobility: Normal. External nose: NO SADDLENOSE DEFORMITY, NASAL BONES PROPERLY ALIGNED EAR, NOSE, MOUTH AND THROAT: Pinnas - normal. Otoscopic exam: RIGHT EAR: External auditory canal normal, tympanic membrane mobile LEFT EAR: External auditory canal normal, tympanic membrane mobile Hearing: Moderate Hearing loss Nasal Interior: Turbinates and middle meatus - Inferior turbinates normal. LARGE CLEAN SEPTAL PERFORATION, 4X3 CM Normal mucosa with no swelling, polyps, active bleeding or evidence of bleeding. Lips, Teeth and Gums: Lips normal. Oral Cavity and Oropharynx: Oral mucosa with normal color and moisture. Anterior 2/3rds of tongue normal. Breath quality normal. Hard palate normal. Normal floor of mouth, Posterior pharynx normal. NECK AND THYROID: Neck: no adenopathy; no neck masses. RESPIRATORY: Respiratory effort normal. LYMPH NODES: Neck nodes: normal. NEUROLOGIC: Higher integrative functions: Normal orientation, memory, attention span and concentration, language, and fund of knowledge. Cranial nerves: Cranial nerves II-XII grossly intact and symmetrical. PSYCHIATRIC: Mood and affect: normal and appropriate to the situation. [id number] Nasal Endoscopy; Diagnostic Modifiers: -50 Bilateral Procedure Informed consent was obtained. Risks, benefits, and alternatives were discussed. ANESTHESIA: Topical 4% Lidocaine and oxymetazoline PROCEDURE NOTE: FINDINGS: VERY CLEAN NASAL CAVITY Nasal septum - LARGE CLEAN SEPTAL PERFORATION 4X3 CM WITH NO GRANULATION TISSUE Right inferior turbinate - normal Right middle turbinate - normal Right middle meatus - normal Right sphenoethmoid recess - normal Right posterior choanae - normal Left inferior turbinate - normal Left middle turbinate - normal Left middle meatus - normal Left sphenoethmoid recess -normal Left posterior chonae - normal Adenoid - normal PROCEDURE: After vasoconstriction and topical anesthesia was establish the endoscope was introduced into the right nasal airway and structures from the nares to the posterior choanae were evaluated. The scope was then removed and the same procedure repeated on the opposite side. The findings are noted above. TOLERANCE: Good Assessment/Plan FEB 19, 2024: 53-year-old female referred secondary to recurrent sinusitis and septal perforation. Patient states that she gets recurrent sinusitis frequently. She feels as though she gets them every few months. She states that she is allergic to every antibiotic I have ever taken , therefore she does not take antibiotics for these infections but let some run their course. She states that she often has symptoms of headache, fevers and chills. She does not complain of facial pain or purulent nasal discharge. She takes Flonase and loratadine daily. She does a [place] pot 3 times a week and increases these when she gets infections to 4-5 times a day. 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 She states that she personally has gotten all necessary vaccines. Patient does have a history in the past of cocaine use and she was aware that she did in fact have a septal perforation. She is worried that she might have a saddlenose deformity. Physical exam shows nasal bones properly aligned with no evidence of a saddlenose deformity. There is a large 4 x 3 cm very clean septal perforation. The ostiomeatal complexes bilaterally are visualized and patent. I reassured the patient first that there is no saddlenose deformity. The area that she was pointing to is simply the normal contour of her nose. I have also congratulated her in her work in keeping her nasal cavity so clean. It is very common for septal perforations to have significant crusting and granulation tissue and she does not. I have recommended that she continue with her current regimen. The perforation is too large for a septal button and I think would ultimately be uncomfortable and cause disruption to the mucosa. I am not convinced that the patient is actually having sinus infections when she has these symptoms. I have recommended that she contact me either through my healthy vet or by calling the clinic when she feels symptomatic and we could get a CT of the sinus while she was symptomatic to determine this. All questions were answered. Complete encounter includes: Review of past medical records Time spent with patient including obtaining history, physical exam, shared decision making, procedures Counseling and answering questions Post visit documentation to include but not limited to medication and lab ordering. Total time = Minimum 40 min MEDICATION RECONCILIATION Outpatient: Has the patient been taking medications as documented in the EMLR? YES: The patient has been taking medications as documented in the EMLR. Essential Medication List for Review used to complete this medication reconciliation. INCLUDED IN THIS LIST: Alphabetical list of active outpatient prescriptions dispensed from this [place] (local) and dispensed from another [place] or [facility] facility (remote) as well as inpatient orders [...] FACILITY ALLERGY/ADR -------- CLNCL/HLTH LU REPT EFF [id number] SULFA DRUGS CLNCL/HLTH LU REPT EFF [id number] SULFUR CLNCL/HLTH LU REPT EFF [id number] TETRACYCLINES [facility] [place] [facility] AUGMENTIN [facility] [place] [facility] BEE STINGS [facility] [place] [facility] SULFA DRUGS [facility] [place] [facility] TETRACYCLINE Med Recon NoGlossary (Tool #1) INCLUDED IN THIS LIST: Alphabetical list of active outpatient prescriptions dispensed from this [place] (local) and dispensed from another [place] or [facility] facility (remote) as well as inpatient orders (local pending and active), local clinic medications, locally documented non-VA medications, and local prescriptions that have or been discontinued in the past 90 days. Non-VA Meds Last Documented On: Apr 20, 2023 NOTE The display of VA prescriptions dispensed from another [place] or [facility] facility (remote) is limited to active outpatient prescription entries matched to National Drug File at the originating site and may not include some items such as investigational drugs, compounds, etc. NOT INCLUDED IN THIS LIST: Medications self-entered by the patient into personal health records (i.e. [employer]) are NOT included in this list. Non-VA medications documented outside this [place], remote inpatient orders (regardless of status) and remote clinic medications are NOT included in this list. The patient and provider must always discuss medications the patient is taking, regardless of where the medication was dispensed or obtained. OUTPT CETIRIZINE HCL 10MG TAB (Status = Active) TAKE ONE TABLET BY MOUTH ONCE DAILY FOR ALLERGIES Rx# [id number] Last Released: 01/02/24 Qty/Days Supply: Rx Expiration Date: 03/27/24 Refills Remainin Indication: FOR ALLERGIES Non-VA CHOLECALCIF 25MCG (D3-1,000UNIT) TAB TAKE FIVE TABLETS BY MOUTH ONCE DAILY OUTPT CLONAZEPAM 1MG TAB (Status = Active) TAKE ONE TABLET BY MOUTH ONCE DAILY NEEDED FOR PANIC DISORDER Rx# [id number] Last Released: 02/19/24 Qty/Days Supply: Rx Expiration Date: 05/21/24 Refills Remainin Indication: FOR PANIC DISORDER OUTPT ESTRADIOL 0.025MG/DAY ([id number]) (Status = Active) APPLY 1 PATCH TO SKIN TWO TIMES A WEEK TO REPLACE [place] PATCH EQUIVALENT Rx# [id number] Last Released: 12/19/23 Qty/Days Supply: Rx Expiration Date: 06/28/24 Refills Remainin Indication: FOR CHANGE OF LIFE SIGNS OUTPT FLUTICASONE PROP 50MCG 120D NASAL INHL (Status = Active) INSTILL 2 SPRAYS INTO EACH NOSTRIL ONCE DAILY FOR NASAL IRRITATION/INFLAMMATION Rx# [id number] Last Released: 12/22/23 Qty/Days Supply: 09/11 Rx Expiration Date: 09/26/24 Refills Remainin Non-VA GRAPE SEED CAP/TAB TAKE ONE BY MOUTH ONCE DAILY resveratrol Non-VA MULTIVITAMIN/MINERALS CAP/TAB TAKE ONE TABLET BY MOUTH ONCE DAILY OUTPT PROGESTERONE 100MG CAP (Status = Active) TAKE ONE CAPSULE BY MOUTH AT BEDTIME FOR MENOPAUSE Rx# [id number] Last Released: 12/19/23 Qty/Days Supply: Rx Expiration Date: 06/28/24 Refills Remainin Non-VA PSYLLIUM ORAL PWD TAKE 1 TEASPOONFUL BY MOUTH ONCE DAILY Non-VA TABLET CUTTER MISCELLANEOUS USE TUMERIC DIRECTED ONCE DAILY OUTPT TRAZODONE HCL 100MG TAB (Status = Active) TAKE ONE TABLET BY MOUTH AT BEDTIME Rx# [id number] Last Released: 11/21/23 Qty/Days Supply: Rx Expiration Date: 11/19/24 Refills Remainin SUPPLIES /renetta/ Bijal Caballero MD Otolaryngology Signed: 02/20/2024 07:48 BIJAL CABALLERO [facility]
--- OUTSIDE RECORDS SUMMARY | 2024-08-28 07:37 | XMS_ITS | Encounter Summary ---
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 Name Role Phone EDDIE CHESTER Primary Care [...] PRESCRIPT ION [id number] 1 Aug 13, 2017 [id number] LAKESHA CALLAWAY PATIENT [place] PRESCRIPT ION [id number] 1 Aug 13, 2017 [id number] LAKESHA CALLAWAY PATIENT [place] BIN [id number] PRESCRIPT ION [facility] HP Jun 13, 2014 [id number] [phone] LAKESHA CALLAWAY PATIENT [facility] RX PRESCRIPT ION RX Aug 13, 2022 THPRX [id number] LAKESHA CALLAWAY PATIENT OPTUM RX PRESCRIPT ION RX Aug 13, 2022 THPRX [id number] LAKESHA CALLAWAY PATIENT [facility] POINT OF SERVICE [facility] PLAN Jan 11, 2019 [id number] [phone] LAKESHA CALLAWAY PATIENT [facility] POINT OF SERVICE Aug 13, 2017 [id number] LAKESHA CALLAWAY PATIENT [facility] Aug 13, 2017 [id number] LAKESHA CALLAWAY PATIENT [facility] HEALTH PLAN [facility]FHP Aug 13, 2017 USP [id number] [phone] LAKESHA CALLAWAY PATIENT [facility] PLAN BOB EVANS E Aug 13, 2017 [id number] LAKESHA CALLAWAY PATIENT [facility] PLAN BHAVESH KATHIA(W NR) Aug 13, 2017 [facility] [id number] LAKESHA CALLAWAY PATIENT [facility] PLAN USP BOB HERMOSILLO Aug 13, 2017 [facility] [id number] LAKESHA CALLAWAY PATIENT [facility] (WNR) TRICA RE(WN R) Aug 13, 2017 (WNR) [id number] LAKESHA CALLAWAY PATIENT Selected Encounter This section includes the information on record at [place] for the Encounter. Date/Time Encounter Type Encounter Description Reason Pro vider Source May 19, 2024 11:14 AM Outpatient Encounter PRIMARY CARE/MEDICINE IHE Encounter Template Text not used by [place] Plan of Treatment: Future Appointments (+ 6 months) and Future Tests (+/- 45 days) The Plan of Treatment section includes future care activities for the patient from all [place] treatmentfacilities. This section includes future appointments and future orders which are active, pending or scheduled. Future Appointments This section includes appointments that were scheduled to occur 6 months from the date of the Encounter, up to a maximum of 20 appointments. The data comes from all [place] treatment facilities. Appointment Date/Time Appointment Type Appointme nt Facility Name Jul 17, 2024 02:00 PM AMBULATORY - REHAB MEDICIN E [facility] Aug 08, 2024 03:00 PM [facility] Oct 06, 2024 02:30 PM AMBULATORY - MEDICINE [facility] Active, Pending, and Scheduled Orders This section includes a listing of several types of active, pending, and scheduled orders, including clinic medications orders, diagnostic test orders, procedure orders and consult orders; where the start date of the order is 45 days before the date of the Encounter or 45 days after the date of theEncounter. The data comes from all [place] treatment facilities. Test Date/Time Test Type Test Details Facility Name Apr 25, 2024 12:00 PM Consult Order [facility] N[facility] Manager's Choice [facility] Lab Results: +/- 30 days of the encounter This section includes the Chemistry and Hematology Lab Results on record with [place] for the patient. Radiology Reports and Pathology Reports are provided separately, in subsequent sections. Lab Results This section contains the Chemistry/Hematology Results that were resulted 30 days before or 30 daysafter the date of the Encounter. Date/Time Source Result Type Result - Unit Interpretation Reference Range Comment May 19, 2024 12:00 AM [facility] OCCULT BLOOD FIT X1 SCREEN(IN-HOUSE) Specimen Type: FECES No comment entered. Ordering Provider: EDDIE CHESTER Report Released Date/Time: Apr 25, 2024 12:00 PM Reporting Lab: [facility] [address] [address] Performing Lab: [address] [address] OCCULT BLOOD (FIT)#1 OF 1 Negative NEG Apr 21, 2024 07:40 AM [facility] FOLATE (WROX) Specimen Type: SERUM No comment entered. Ordering Provider: EDDIE CHESTER Report Released Date/Time: Apr 15, 2024 04:29 PM Reporting Lab: [facility] [address] [address] Performing Lab: [facility] [address] [facility] [address] FOLATE (WROX) 11.94 ng/mL >5.2 Apr 21, 2024 07:40 AM [facility] BASIC METABOLIC PANEL (non-fasting) Specimen Type: SERUM No comment entered. Ordering Provider: EDDIE CHESTER Report Released Date/Time: Apr 15, 2024 04:29 PM Reporting Lab: [facility] [address] [address] Performing Lab: [facility] [address] [address] UREA NITROGEN 29 mg/dL H 7-25 GLUCOSE 99 mg/dL 65-100 SODIUM 137 mmol/L 135-145 POTASSIUM 4.2 mmol/L 3.5-5.0 CHLORIDE 108 mmol/L 100-110 CO2 21 meq/L 20-30 CREATININE, Serum 0.77 mg/dL 0.50-1.40 eGFR(CKD-EPI 2020) >90 mL/min >60 Apr 21, 2024 07:40 AM [facility] LIVER FUNCTION Specimen Type: SERUM No comment entered. Ordering Provider: EDDIE CHESTER Report Released Date/Time: Apr 15, 2024 04:29 PM Reporting Lab: [address] [address] Performing Lab: [address] [address] PROTEIN,TOTAL 6.7 g/dL 6.0-8.3 ALBUMIN 4.1 g/dL 3.5-5.0 ALKALINE PHOSPHATASE 61 U/L 40-150 AST 20 U/L 5-34 ALT 21 U/L BILIRUBIN, TOTAL 0.2 mg/dL 0.2-1.2 Apr 21, 2024 07:40 AM [facility] LIPID PANEL, NON FASTING Specimen Type: SERUM No comment entered. Ordering Provider: EDDIE CHESTER Report Released Date/Time: Apr 15, 2024 04:29 PM Reporting Lab: [address] [address] Performing Lab: [address] [address] CHOLESTEROL 219 mg/dL H TRIGLYCERIDE 29 mg/dL 0-150 LDL calculated 118 mg/dL 0-129 CHOL/HDL 2.3 HDL CHOLESTEROL 95 mg/dL H 40-60 Apr 21, 2024 07:40 AM [facility] CALCIUM Specimen Type: SERUM No comment entered. Ordering Provider: EDDIE CHESTER Report Released Date/Time: Apr 15, 2024 04:29 PM Reporting Lab: [address] [place] [address] Performing Lab: [facility] [place] [facility] [address] [address] CALCIUM 9.4 mg/dL 8.5-10.2 Apr 21, 2024 07:40 AM [facility] TSH Specimen Type: SERUM No comment entered. Ordering Provider: EDDIE CHESTER Report Released Date/Time: Apr 15, 2024 04:29 PM Reporting Lab: [facility]N [place] [facility] [address] [address] Performing Lab: [facility] [address] [address] TSH 1.78 u[IU]/mL 0.35-5.00 Apr 21, 2024 07:40 AM [facility] HEMOGLOBIN A1C PANEL Specimen Type: BLOOD Comment: [...] Apr 15, 2024 04:29 PM Reporting Lab: [facility] [address] [address] Performing Lab: [facility] [address] [address] HEMOGLOBIN A1C 5.1 4.0-5.6 Apr 21, 2024 07:40 AM [facility] IRON & TIBC PANEL Specimen Type: SERUM No comment entered. Ordering Provider: EDDIE CHESTER Report Released Date/Time: Apr 15, 2024 04:29 PM Reporting Lab: [facility]ITALRINFIRMARY WESTTRN [facility] [address] [address] Performing Lab: [facility] [address] [address] TIBC 374 ug/dL 204-475 IRON 58 ug/dL 40-160 Transferrin Saturation 15.5 L 20.0-50.0 Transferrin (TRF) 283 mg/dL 200-360 Apr 21, 2024 07:40 AM [facility] TRN [facility] FERRITIN Specimen Type: SERUM No comment entered. Ordering Provider: EDDIE CHESTER Report Released Date/Time: Apr 15, 2024 04:29 PM Reporting Lab: [facility]IRMARY WESTTRN [place] [facility] [address] [address] Performing Lab: [place] [facility] [facility] [address] [address] FERRITIN 51 ng/mL 10-200 Apr 21, 2024 07:40 AM [facility]RJ[facility]OSPITALN [facility] MAGNESIUM Specimen Type: SERUM No comment entered. Ordering Provider: EDDIE CHESTER Report Released Date/Time: Apr 15, 2024 04:29 PM Reporting Lab: [facility]STTRN [facility] [address] [address] Performing Lab: [facility] TRN [facility] [address] [address] MAGNESIUM 1.9 mg/dL 1.6-2.6 Apr 21, 2024 07:40 AM [facility] VITAMIN D (25-[place]) Specimen Type: SERUM No comment entered. Ordering Provider: EDDIE CHESTER Report Released Date/Time: Apr 15, 2024 04:29 PM Reporting Lab: [facility] WESTTRN [facility] [address] [address] Performing Lab: [facility] TRN [facility] [address] [address] VITAMIN D (25-[place]) 50 ng/mL 20-50 Apr 21, 2024 07:40 AM [facility]RJ[facility]PITALN [facility] VITAMIN B12 Specimen Type: SERUM No comment entered. Ordering Provider: EDDIE CHESTER Report Released Date/Time: Apr 15, 2024 04:29 PM Reporting Lab: [facility]INF[facility] WESTTRN [facility] [address] [address] Performing Lab: [facility]RINFIR[facility] WESTTRN [facility] [address] [address] VITAMIN B12 979 pg/mL H 200-900 Apr 21, 2024 07:40 AM [place] CN[facility]L [facility] CBC Specimen Type: BLOOD No comment entered. Ordering Provider: EDDIE CHESTER Report Released Date/Time: Apr 15, 2024 04:29 PM Reporting Lab: [place] [facility] [facility] [address] [address] Performing Lab: [place] CN[facility]N [facility] [address] [address] WBC 5.97 10*3/uL 4.50-11.00 RBC 4.22 10*6/uL [...] and tobacco- related health factors from the [place] facility where the Encounter took place. Current Smoking Status This section includes the most current smoking, or tobacco-related health factor, from the [place] facility where the Encounter took place. Date/Time Current Smoking Status Comment Susana garcia Apr 25, 2024 11:00 AM VA-TOBACCO NEVER USED [facility]TR[facility] Tobacco Use History This section includes a history of the smoking, or tobacco-related health factors, that were collected on or before the date of the Encounter. The data comes from the [place] facility where the Encounter took place. Date/Time Smoking Status/Tobacco Use Comment F acility Jul 14, 2022 01:00 PM VA-TOBACCO NEVER USED [place] [facility] [place] [facility] Feb 04, 2021 01:30 PM VA-TOBACCO NEVER USED [place] [facility] [place] [facility] Jul 29, 2018 12:31 PM VA-TOBACCO NEVER USED [place] [facility] [place] [facility] Aug 17, 2017 03:43 PM LIFETIME NON-TOBACCO USER [place] [facility] [place] [facility] Apr 12, 2016 08:58 AM QUIT TOBACCO USE > 7 YEARS AGO [facility] WSN [facility] Feb 08, 2015 08:25 AM QUIT TOBACCO USE > 7 YEARS AGO [facility] Radiology Reports: +/- 30 days of [...] the Encounter. The data comes from all [place] treatment facilities. Date/Time Radiology Report Provider Source May 09, 2024 02:30 PM OUTSIDE MAMMO/SCRE ENING, INCLUDING CAD, BILAT: LEILANI CALLAWAY [id number] [phone] F Exm Date: MAY 09, 2024@14:30 Req Phys: EDDIE CHESTER Loc: CWM/NO/PACT 6 WH (Req'g Loc) Img Loc: OUTSIDE GENERAL RADIOLOGY Service: Unknown Screen: Patient is unable to answer or is unsure Screen Comment: cc exam (Case 181 COMPLETE) OUTSIDE MAMMO/SCREENING, INCLUDIN(RAD Detailed) CPT:95465 Reason for Study: annual screening mammogram Clinical History: Report Status: Electronically Filed Date Reported: MAY 09, 2024 Report: Community care exam; see CPRS/JLV for outside radiology report/results Impression: Community care exam; see CPRS/JLV for outside radiology report/results Primary Diagnostic Code: BI-RADS CATEGORY 1 (Negative) VERIFIED BY: / *ELECTRONICALLY FILED* [facility] Encounter Notes: All associated encounter notes This section contains the clinical notes associated to the Encounter. Date/Time Encounter Note(s) Provider Source May 19, 2024 11:15 AM LETTERS: LOCAL TITLE: PATIENT LETTER (T) STANDARD TITLE: LETTERS DATE OF NOTE: MAY 19, 2024@11:15 ENTRY DATE: MAY 19, 2024@11:15:51 AUTHOR: GUSTAVO SULTANA EXP COSIGNER: URGENCY: STATUS: COMPLETED [facility] Toll Free Number Primary Care Telephone Assistance can be reached at extension [phone] [facility] scheduling can be reached at extension [phone] Only Specialty Care scheduling can be reached at ext [phone] LEILANI CALLAWAY [address] [place] [address], [id number] May 19, 2024 Dear Romaine Callaway, Thank you for having your mammogram done. I have received the results of the mammogram performed on May 09, 2024 at [facility] and the study was normal (BI-RADS 1, Density B). According to the recommendations of the [employer], you should have this study repeated in 1 year. If you have any changes to your breasts or any concerns, please call to have an exam. Please feel free to call with any questions at [phone]. Sincerely, Eddie Chester MD, MPH Primary Care [place], [place] Sincerely, Your Primary Care Team [facility] [address] [facility] [address] [place] [address] [place] [address] [phone] [facility] [address] [place] [address] [place] [address] [phone] [facility] [address] [facility] [place] [address] [place] [address] GUSTAVO SULTANA [place] [facility] [facility] May 19, 2024 11:14 AM Biopharmacopae NOTE : LOCAL TITLE: SMART BREAST IMAGING FOLLOW-UP STANDARD TITLE: Biopharmacopae NOTE DATE OF NOTE: MAY 19, 2024@11:14 ENTRY DATE: MAY 19, 2024@11:14:20 AUTHOR: GUSTAVO SULTANA EXP COSIGNER: URGENCY: STATUS: COMPLETED Record prior or outside mammogram: Written Report Available Outside report Received on: May 19, 2024 Location: [facility] Breast Tomosynthesis Date: May 09, 2024 Patient does not have dense breast tissue Interpretation of results and decision making Summary of results: BIRAD 1,Density B Radiologist recommends the following: Return for screening mammogram in one year Method patient contacted by: Non-Registered Letter Date: May 19, 2024 Additional Information: Additional Information: /es/ Gustavo Sultana RN, BSN Women's Healthcare Navigator, RN Signed: 05/19/2024 11:15 Receipt Acknowledged By: 05/20/2024 11:09 /renetta/ ALANIS PEREZ SAMPLE STITCHER GUSTAVO SULTANA CNTRL W[facility]N [facility]
--- OUTSIDE RECORDS SUMMARY | 2024-08-28 07:37 | XMS_ITS ---
Author Name [facility] [place] Organization [facility] [place] [facility] [place] Address [address] [place] [id number] Care Team Providers Care Change Management Director Name Role Phone EDDIE DREW Primary Care [...] PRESCRIPT ION [id number] 1 Aug 13, 2017 [id number] LAKESHA CALLAWAY PATIENT [facility] PRESCRIPT ION [id number] 1 Aug 13, 2017 [id number] LAKESHA CALLAWAY PATIENT [facility] BIN [id number] PRESCRIPT ION [facility] HP Jun 13, 2014 [id number] [phone] LAKESHA CALLAWAY PATIENT [facility] RX PRESCRIPT ION RX Aug 13, 2022 THPRX [id number] LAKESHA CALLAWAY PATIENT [facility] RX PRESCRIPT ION RX Aug 13, 2022 [id number] [id number] [phone] LAKESHA CALLAWAY PATIENT [facility] POINT OF SERVICE [facility] PL[facility] Jan 11, 2019 [id number] [phone] LAKESHA CALLAWAY PATIENT [facility] POINT OF SERVICE Aug 13, 2017 [id number] LAKESHA CALLAWAY PATIENT [facility] Aug 13, 2017 [id number] LAKESHA CALLAWAY PATIENT [facility] USFHP Aug 13, 2017 [id number] [id number] [phone] LAKESHA CALLAWAY PATIENT [facility] BOB EVANS E Aug 13, 2017 [id number] LAKESHA CALLAWAY PATIENT [facility] BHAVESH KATHIA(W NR) Aug 13, 2017 [facility] [id number] LAKESHA CALLAWAY PATIENT [facility] USP BOB HERMOSILLO Aug 13, 2017 [facility] [id number] LAKESHA CALLAWAY PATIENT [facility] (WNR) TRICA RE(WN R) Aug 13, 2017 (WNR) [id number] [phone] LAKESHA CALLAWAY PATIENT Selected Encounter This section includes the information on record at [place] for the Encounter. Date/Time Encounter Type Encounter Description Reason Pro vider Source Apr 25, 2024 11:00 AM Outpatient Encounter EVENT (HISTORICAL) IHE Encounter Template Text not used by [place] Plan of Treatment: Future Appointments (+ 6 months) and Future Tests (+/- 45 days) The Plan of Treatment section includes future care activities for the patient from all [place] treatmentfacilities. This section includes future appointments and future orders which are active, pending or scheduled. Future Appointments This section includes appointments that were scheduled to occur 6 months from the date of the Encounter, up to a maximum of 20 appointments. The data comes from all [place] treatment facilities. Appointment Date/Time Appointment Type Appointme nt Facility Name May 09, 2024 02:45 PM AMBULATORY - MEDICINE [facility] [place] [facility] Jul 17, 2024 02:00 PM AMBULATORY - [facility] Aug 08, 2024 03:00 PM [facility] [place] [facility] Oct 06, 2024 02:30 PM AMBULATORY - MEDICINE [facility] Active, Pending, and Scheduled Orders This section includes a listing of several types of active, pending, and scheduled orders, including clinic medications orders, diagnostic test orders, procedure orders and consult orders; where the start date of the order is 45 days before the date of the Encounter or 45 days after the date of theEncounter. The data comes from all [place] treatment facilities. 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 Radiology Reports and Pathology Reports are provided separately, in subsequent sections. Lab Results This section contains the Chemistry/Hematology Results that were resulted 30 days before or 30 daysafter the date of the Encounter. Date/Time Source Result Type Result - Unit Interpretation Reference Range Comment May 19, 2024 12:00 AM [facility] OCCULT BLOOD FIT X1 SCREEN(IN-HOUSE) Specimen Type: FECES No comment entered. Ordering Provider: EDDIE DREW Report Released Date/Time: Apr 25, 2024 12:00 PM Reporting Lab: [facility] [address] [facility] [address] Performing Lab: [facility] [address] [facility] [address] OCCULT BLOOD (FIT)#1 OF 1 Negative NEG Apr 21, 2024 07:40 AM [facility] FOLATE (WROX) Specimen Type: SERUM No comment entered. Ordering Provider: EDDIE DREW Report Released Date/Time: Apr 15, 2024 04:29 PM Reporting Lab: [facility] [address] [address] Performing Lab: [facility] [address] [facility] [address] FOLATE (WROX) 11.94 ng/mL >5.2 Apr 21, 2024 07:40 AM [facility] BASIC METABOLIC PANEL (non-fasting) Specimen Type: SERUM No comment entered. Ordering Provider: EDDIE DREW Report Released Date/Time: Apr 15, 2024 04:29 PM Reporting Lab: [facility] [address] [facility] [address] Performing Lab: [facility] [address] [facility] [address] UREA NITROGEN 29 mg/dL H 7-25 GLUCOSE 99 mg/dL 65-100 SODIUM 137 mmol/L 135-145 POTASSIUM 4.2 mmol/L 3.5-5.0 CHLORIDE 108 mmol/L 100-110 CO2 21 meq/L 20-30 CREATININE, Serum 0.77 mg/dL 0.50-1.40 eGFR(CKD-EPI 2020) >90 mL/min >60 Apr 21, 2024 07:40 AM [facility] LIVER FUNCTION Specimen Type: SERUM No comment entered. Ordering Provider: EDDIE DREW Report Released Date/Time: Apr 15, 2024 04:29 PM Reporting Lab: [address] [address] Performing Lab: [address] [address] PROTEIN,TOTAL 6.7 g/dL 6.0-8.3 ALBUMIN 4.1 g/dL 3.5-5.0 ALKALINE PHOSPHATASE 61 U/L 40-150 AST 20 U/L 5-34 ALT 21 U/L BILIRUBIN, TOTAL 0.2 mg/dL 0.2-1.2 Apr 21, 2024 07:40 AM [facility] LIPID PANEL, NON FASTING Specimen Type: SERUM No comment entered. Ordering Provider: EDDIE DREW Report Released Date/Time: Apr 15, 2024 04:29 PM Reporting Lab: [facility] [address] [facility] [address] Performing Lab: [address] [address] CHOLESTEROL 219 mg/dL H TRIGLYCERIDE 29 mg/dL 0-150 LDL calculated 118 mg/dL 0-129 CHOL/HDL 2.3 HDL CHOLESTEROL 95 mg/dL H 40-60 Apr 21, 2024 07:40 AM [facility] CALCIUM Specimen Type: SERUM No comment entered. Ordering Provider: EDDIE DREW Report Released Date/Time: Apr 15, 2024 04:29 PM Reporting Lab: [place] [facility] [place] [facility] [address] [facility] [address] Performing Lab: [facility] [place] [facility] [address] [facility] [address] CALCIUM 9.4 mg/dL 8.5-10.2 Apr 21, 2024 07:40 AM [facility] TSH Specimen Type: SERUM No comment entered. Ordering Provider: EDDIE DREW Report Released Date/Time: Apr 15, 2024 04:29 PM Reporting Lab: [place] [facility] [place] [facility] [address] [facility] [address] Performing Lab: [facility] [place] [facility] [address] [facility] [address] TSH 1.78 u[IU]/mL 0.35-5.00 Apr 21, 2024 07:40 AM [facility] HEMOGLOBIN A1C PANEL Specimen Type: [...] Apr 15, 2024 04:29 PM Reporting Lab: [facility] [place] [facility] [address] [facility] [address] Performing Lab: [facility] [place] [facility] [address] [facility] [address] HEMOGLOBIN A1C 5.1 4.0-5.6 Apr 21, 2024 07:40 AM [facility] IRON & TIBC PANEL Specimen Type: SERUM No comment entered. Ordering Provider: EDDIE DREW Report Released Date/Time: Apr 15, 2024 04:29 PM Reporting Lab: [facility] [place] [facility] [address] [facility] [address] Performing Lab: [facility] TRN [facility] CENTERUSETS [address] [address] TIBC 374 ug/dL 204-475 IRON 58 ug/dL 40-160 Transferrin Saturation 15.5 L 20.0-50.0 Transferrin (TRF) 283 mg/dL 200-360 Apr 21, 2024 07:40 AM [facility]ENTERUSEADIROND[facility] FERRITIN Specimen Type: SERUM No comment entered. Ordering Provider: EDDIE DREW Report Released Date/Time: Apr 15, 2024 04:29 PM Reporting Lab: [facility]ENTERTRN [place] [address] [address] Performing Lab: [facility]ENTERUSETS [address] [address] FERRITIN 51 ng/mL 10-200 Apr 21, 2024 07:40 AM [facility]ENTERUSEADIR[facility] MAGNESIUM Specimen Type: SERUM No comment entered. Ordering Provider: EDDIE DREW Report Released Date/Time: Apr 15, 2024 04:29 PM Reporting Lab: [facility]ENTERTR[facility] [place] [address] [address] Performing Lab: [facility]ENTERTRN [facility]ENTERUSETS [address] [address] MAGNESIUM 1.9 mg/dL 1.6-2.6 Apr 21, 2024 07:40 AM [facility]ENTERUSE[facility] VITAMIN D (25-OH) Specimen Type: SERUM No comment entered. Ordering Provider: EDDIE DREW Report Released Date/Time: Apr 15, 2024 04:29 PM Reporting Lab: [facility]ENTERTR[facility] [place] [address] [address] Performing Lab: [facility] CENTERTRN [facility]ITALCHUSETS [address] [address] VITAMIN D (25-OH) 50 ng/mL 20-50 Apr 21, 2024 07:40 AM [facility]ENTERUSEAD[facility] VITAMIN B12 Specimen Type: SERUM No comment entered. Ordering Provider: EDDIE DREW Report Released Date/Time: Apr 15, 2024 04:29 PM Reporting Lab: [facility]ENTERTRN [facility] CENTERUSETS [address] [address] Performing Lab: [facility]PITALCHUSETS [facility] [address] [facility] [address] VITAMIN B12 979 pg/mL H 200-900 Apr 21, 2024 07:40 AM [facility] CBC Specimen Type: BLOOD No comment entered. Ordering Provider: EDDIE DREW Report Released Date/Time: Apr 15, 2024 04:29 PM Reporting Lab: [facility] [address] [facility] [address] Performing Lab: [facility] [address] [facility] [address] WBC 5.97 10*3/uL 4.50-11.00 RBC 4.22 10*6/uL [...] Source Apr 25, 2024 11:46 AM 108/74 [place] [facility] Apr 25, 2024 11:43 AM 134 25 [place] [facility]TR [place] [facility] Apr 25, 2024 11:09 AM 89 133/94 [place] [facility] [place] [facility] Apr 25, 2024 11:02 AM 98.3 89 18 99 [place] [facility] [facility] Apr 25, 2024 11:02 AM 131/89 [facility] [place] [facility] Social History: Smoking Status (Most current) and Tobacco Use (All prior to encounter date) This section includes the most current, and the historical, smoking and tobacco- related health factors from the AR facility where the Encounter took place. Current Smoking Status This section includes the most current smoking, or tobacco-related health factor, from the AR facility where the Encounter took place. Date/Time Current Smoking Status Comment Facil ity Apr 25, 2024 11:00 AM VA-TOBACCO NEVER USED [facility] Tobacco Use History This section includes a history of the smoking, or tobacco-related health factors, that were collected on or before the date of the Encounter. The data comes from the AR facility where the Encounter took place. Date/Time Smoking Status/Tobacco Use Comment F acility Jul 14, 2022 01:00 PM VA-TOBACCO NEVER USED [facility] Feb 04, 2021 01:30 PM VA-TOBACCO NEVER USED [place] [facility] [place] [facility] Jul 29, 2018 12:31 PM VA-TOBACCO NEVER USED [facility] Aug 17, 2017 03:43 PM LIFETIME NON-TOBACCO USER [place] [facility]L [place] [facility] Apr 12, 2016 08:58 AM QUIT TOBACCO USE > 7 YEARS AGO [facility] Feb 08, 2015 08:25 AM QUIT TOBACCO USE > 7 YEARS AGO [facility] Radiology Reports: +/- 30 days of [...] the Encounter. The data comes from all [place] treatment facilities. Date/Time Radiology Report Provider Source May 09, 2024 02:30 PM OUTSIDE MAMMO/SCRE ENING, INCLUDING CAD, BILAT: LEILANI CALLAWAY [id number] -[id number] F Exm Date: MAY 09, 2024@14:30 Req Phys: EDDIE DREW Loc: CWM/NO/PACT 6 WH (Req'g Loc) Img Loc: OUTSIDE GENERAL RADIOLOGY Service: Unknown Screen: Patient is unable to answer or is unsure Screen Comment: cc exam (Case 181 COMPLETE) OUTSIDE MAMMO/SCREENING, INCLUDIN(RAD Detailed) CPT:40421 Reason for Study: annual screening mammogram Clinical History: Report Status: Electronically Filed Date Reported: MAY 09, 2024 Report: Community care exam; see CPRS/JLV for outside radiology report/results Impression: Community care exam; see CPRS/JLV for outside radiology report/results Primary Diagnostic Code: BI-RADS CATEGORY 1 (Negative) VERIFIED BY: / *ELECTRONICALLY FILED* [facility]L [facility]
[2024-08-28 07:46] VITALS: BP 146/97; PULSE 94; RESP 18; TEMP 37.6; O2SAT 98; BMI 23.9
[2024-08-28 08:27] LABS: Influenza A PCR POSITIVE (Negative); Influenza B PCR NEGATIVE (Negative); Resp Syncy Virus RNA Qual PCR NEGATIVE (Negative); SARS COV2 PCR INHOUSE NEGATIVE (Negative)
--- NOTE | 2024-08-28 09:10 | ED_ITS ---
HPI - URI/Sore Throat General Chief Complaint: Upper Respiratory Symptoms Stated Complaint: Chest pain Time Seen by Provider: 08/28/24 09:01 Source: patient, RN notes reviewed and old records reviewed Mode of arrival: ambulatory Limitations: no limitations History of Present Illness ED Provider: Aleyda Winters PA-C HPI Narrative: 54 yo female with history of mitral valve prolapse, HLD who presents to the ER for evaluation of 4 days of cough, fevers, headache, body aches. She developed left-sided chest pain and tightness last night that lasted about an hour and a half and self-resolved. No chest pain at this time. She reports some tightness in her chest and a productive cough with green phlegm. She has had fevers up to 102 at home. 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 She vomited twice this morning, no abdominal pain. No diarrhea. She is up-to-date on her flu shot. MD elicited complaint: fever, cough and other (Body aches, chest pain) Onset (ago): day(s) Consistency: progressively worsening Severity: moderate Description of mucous: green Able to tolerate fluids by mouth: Yes Exacerbating factors: nothing Relieving factors: nothing Context: sick contacts Associated symptoms: fever, chills, myalgias, headache, cough, chest pain, nausea and vomiting Treatments prior to arrival: none Related Data Home Medications ?Medication ?Instructions ?Recorded ?Confirmed clonazepam 1 mg tablet 1 mg PO BEDTIME PRN 09/13/22 09/13/22 trazodone 50 mg tablet 25 mg PO DAILY 09/13/22 09/13/22 estradiol 1 mg-progesterone 100 mg 1 cap PO QPM 10/24/22 capsule Allergies Allergy/AdvReac Type Severity Reaction Status Date / Time amoxicillin [From AUGMENTIN] Allergy Unknown SWELLING Verified 08/28/24 07:47 clavulanic acid Allergy Unknown SWELLING Verified 08/28/24 07:47 [From AUGMENTIN] Sulfa (Sulfonamide Allergy Unknown HIVES Verified 08/28/24 07:47 Antibiotics) [SULFA (SULFONAMIDE ANTIBIOTICS)] tetracycline Allergy Unknown Abdominal Verified 08/28/24 07:47 Pain Tetracyclines [TETRACYCLINES] Allergy Unknown HIVE Verified 08/28/24 07:47 Pt states no food allergies AdvReac Unknown Vomiting Uncoded 09/13/22 08:54 Review of Systems 2 Review of Systems: Yes all other systems are reviewed and are negative [facility] Past Medical History Medical History Family history of coronary artery disease Hyperlipidemia Family History Family History Father Diabetes Heart disease Brother Diabetes Social History Social History Unable to assess alcohol history related to: Unknown Alcohol intake: never Patient Tobacco Use Status: Never used Tobacco Smoked in Last 30 Days: No Use of substances other than those prescribed or required for medical reasons: Unknown Advance Directives: No Advance Directives Information Provided: No Physical Exam 2 Vital Signs: Vital Signs: Last Vital Signs Temp 99.6 F 08/28/24 11:20 Pulse 90 08/28/24 11:20 Resp 16 08/28/24 11:20 BP 137/90 H 08/28/24 11:20 Pulse Ox 96 08/28/24 11:20 O2 Del Method Room Air 08/28/24 11:20 BMI result Body Mass Index 23.9 Appearance: Alert. Oriented X3. No acute distress. Head: normocephalic, atraumatic. Eyes: Pupils equal, round and reactive to light. ENT: Pharynx normal. No tonsillar swelling or exudate. Neck: Normal inspection. Neck supple. CVS: Normal heart rate and rhythm. Pulses normal. Respiratory: No respiratory distress. Left upper lobe with focal inspiratory wheeze which cleared after a cough, otherwise clear throughout with no rhonchi or rales. Abdomen: Soft and nontender. +BS x4 Skin: Skin warm, clammy. Normal skin color. Normal skin turgor. No rashes. Extremities: No lower extremity edema. No joint swelling. Neuro/psych: Oriented X 3. No motor deficit. No sensory deficit. CN II-XII intact. Normal speech and cognition. Medications Administered Discontinued Medications Generic Name Dose Route Start Last Admin Trade Name Freq PRN Reason Stop Dose Admin Ibuprofen 600 mg 08/28/24 09:27 08/28/24 09:37 Ibuprofen 600 Mg Tablet PO 08/28/24 09:28 600 mg ONCE ONE Administration Medical Decision Making Medical Decision Making MDM Narrative: 54-year-old female presents to the ER for evaluation of productive cough, episode of chest pain last night, ongoing fevers for 4 days. Vital signs are stable on arrival. Physical exam is unremarkable aside from some transient wheezing in the left upper lobe. No respiratory distress. She is oxygenating well. No pain at this time. Initial EKG had T-wave inversions and some ST depressions with an increased rate in the 90s. This prompted additional lab workup with concern for possible pericarditis or myocarditis. She did test positive for influenza. Lab workup reassuring. Troponin is negative. Heart rates improved to the 70s after dose of Motrin. Repeat EKG is unremarkable and at her baseline. Stable for discharge home with supportive care for influenza Differential Diagnosis Differential Diagnoses: The differential diagnosis associated with the presentation includes strep, covid, flu, rsv, other viral syndrome, bronchitis, pneumonia, pericarditis, myocarditis Admission/Observation Consideration of admission/observation: Escalation of care including admission/observation considered Lab Data MDM Lab Attestation statement: I reviewed the patient's lab results. Negative troponin, improved thrombocytopenia, normal renal function 08/28/24 09:14 08/28/24 09:14 Labs: Lab Results 08/28/24 08/28/24 Range/Units 07:43 09:14 WBC 10.1 (4.8-10.8) X10*3/uL RBC 4.31 (4.20-5.50) X10*6/uL Hgb 13.6 (12.0-16.0) g/dl Hct 40.0 (37.0-47.0) % MCV 92.8 (80.0-98.0) fL MCH 31.6 (27.0-33.0) pg MCHC 34.0 (31.0-35.0) g/dl RDW 12.7 (11.0-16.0) % Plt Count 159 L D (160-400) X10*3/uL MPV 10.6 (9.4-12.3) fL Immature Gran % (Auto) 0.6 H (0.0-0.4) % Neut % (Auto) 85.4 H (45-73) % Lymph % (Auto) 5.4 L (20-40) % [place] % (Auto) 8.4 (2-11) % Eos % (Auto) 0.0 (0-4) % Baso % (Auto) 0.2 (0-2) % Lymph # (Auto) 0.6 L (1.2-4.9) X10*3/uL [place] # (Auto) 0.9 (0.1-1.2) X10*3/uL Eos # (Auto) 0.0 (0.0-0.4) X10*3/uL Baso # (Auto) 0.0 (0.0-0.2) X10*3/uL Abs Immat Gran (auto) 0.06 H (0.00-0.03) X10*3/uL Absolute Neuts (auto) 8.7 H (2.0-8.3) x10*3/uL Absolute Nucleated RBC 0.000 (0.0-0.012) X10*3/uL Nucleated RBC % (auto) 0.0 (0.0-0.2) /100WBC Sodium 140 (135-145) mmol/L Potassium 4.1 (3.3-5.1) mmol/L Chloride 110 H (96-108) mmol/L Carbon Dioxide 23 (22-29) mmol/L Anion Gap 11 L (12-20) BUN 10 (9-16) mg/dL Creatinine 0.74 (0.5-1.4) mg/dL Estim Creat Clear Calc 71.0 Estimated GFR > 60 Random Glucose 101 (60-115) mg/dL Calcium 9.2 (8.4-10.2) mg/dL Magnesium 1.9 (1.6-2.6) mg/dL Total Bilirubin 0.3 (0.0-1.0) mg/dL Direct Bilirubin 0.2 (0.0-0.5) mg/dL AST 24 (5-31) U/L ALT 21 (0-31) U/L Alkaline Phosphatase 41 (39-117) U/L Troponin I High Sens < 2.7 (<3.5-17.0) ng/L Total Protein 7.0 (6.5-8.0) g/dL Albumin 4.0 (3.5-5.0) g/dL Influenza Type A (PCR) POSITIVE A (Negative) Influenza Type B (PCR) NEGATIVE (Negative) RSV RNA Qual (PCR) NEGATIVE (Negative) SARS-CoV-2 RNA (RT-PCR) NEGATIVE (Negative) Independent Interpretation I performed an independent interpretation of an: EKG and Plain X-Ray Interpretation: EKG 1 at 07:39 with normal sinus rhythm, ventricular rate 91 beats per minute, there is diffuse T-wave inversion in inferior and aneriolateral leads. This was compared to prior and appears to be worse EKG to done at 10:54 with normal sinus rhythm, ventricular rate 72 beats per minute, T-wave inversion in V3 through V5, appears similar to prior. Chest x-ray without any focal consolidation or effusion Radiology Impression Discussion of test interpretation with radiology: I have reviewed the radiologist's reading. External Record Review External record reviewed: Outpatient record, Prior outpatient labs and Prior outpatient radiology Prescription Management I considered prescription management with: Pain Medication, Antiviral and Other (colchicine) Chronic Conditions Patient?s care impacted by: Other (HLD, MVP) Critical Care Time Critical Care Time Critical Care Time: No Discharge Plan Discharge Clinical Impression: Influenza Patient Disposition: Home, Self-Care Instructions: Influenza (DC) Additional Instructions: You tested positive for Influenza A Your EKG was unchanged from prior Your labs were reassuring Rest and drink plenty of fluids Take motrin and tylenol as needed for pain Follow up with your doctor. If you develop new or worsening symptoms call 911 or come back to the ER for further evaluation. Prescriptions: No Action estradiol-progesterone 1-100 mg capsule 1 cap PO QPM clonazepam 1 mg tablet 1 mg PO BEDTIME PRN trazodone 50 mg tablet 25 mg PO DAILY Referrals: Clarita Chester MD [Primary Care Provider] - Stand Alone Forms: Work/School Release Interventions: ED Discharge Assessment Last Done: 08/28/24 11:20 Discharge Date/Time: 08/28/24 11:21 Print Language: Nepali
[2024-08-28 09:20] LABS: MANUAL DIFF FLAG NO
[2024-08-28 09:22] LABS: Basophils Percent Auto 0.2 % (0-2); Hemoglobin 13.6 g/dl (12.0-16.0); Imm Gran Abs Auto 0.06 X10*3/uL (0.00-0.03); Imm Gran Pct Auto 0.6 % (0.0-0.4); Lymphocytes Absolute Auto 0.6 X10*3/uL (1.2-4.9); Lymphocytes Percent Auto 5.4 % (20-40); Mean Corpuscular Hemoglobin 31.6 pg (27.0-33.0); Mean Corpuscular Volume 92.8 fL (80.0-98.0); Mean Platelet Volume 10.6 fL (9.4-12.3); Monocytes Absolute Auto 0.9 X10*3/uL (0.1-1.2); Monocytes Percent Auto 8.4 % (2-11); Neutrophils Absolute Auto 8.7 x10*3/uL (2.0-8.3); Neutrophils Percent Auto 85.4 % (45-73); Platelet Count 159 X10*3/uL (160-400); Red Blood Count 4.31 X10*6/uL (4.20-5.50); Red Cell Distribution Width 12.7 % (11.0-16.0); White Blood Count 10.1 X10*3/uL (4.8-10.8)
[2024-08-28 09:36] LABS: Alanine Aminotransferase 21 U/L (0-31); Alkaline Phosphatase 41 U/L (39-117); Anion Gap 11 (12-20); Aspartate Amino Transferase 24 U/L (5-31); Bilirubin Direct 0.2 mg/dL (0.0-0.5); Bilirubin Total 0.3 mg/dL (0.0-1.0); Blood Urea Nitrogen 10 mg/dL (9-16); Calcium 9.2 mg/dL (8.4-10.2); Carbon Dioxide 23 mmol/L (22-29); Chloride 110 mmol/L (96-108); Estimated Glomerular Filt Rate > 60; Glucose Random 101 mg/dL (60-115); Magnesium 1.9 mg/dL (1.6-2.6); Potassium 4.1 mmol/L (3.3-5.1); Sodium 140 mmol/L (135-145)
[2024-08-28] MEDS: Ibuprofen 600 MG TABLET PO (09:37)
--- NOTE | 2024-08-28 09:40 | ECG_ITS ---
Test Reason : chest pain Blood Pressure : */* mmHG Vent. Rate : 72 BPM Atrial Rate : 72 BPM P-R Int : 146 ms QRS Dur : 74 ms QT Int : 378 ms P-R-T Axes : 17 52 38 degrees QTcB Int : 413 ms Normal sinus rhythm T wave abnormality, consider anterolateral ischemia Abnormal ECG When compared with ECG of 28-Aug-2024 07:39, Non-specific change in ST segment in Lateral leads T wave inversion no longer evident in Inferior leads Referred By: Mary Winters Electronically Signed By: Shawn Alan
[2024-08-28 09:43] LABS: Troponin-I High Sensitivity < 2.7 ng/L (<3.5-17.0)
[2024-08-28 11:20] VITALS: BP 137/90; PULSE 90; RESP 16; TEMP 37.6; O2SAT 96
== END 2024-08-28 11:21 | disposition home or self-care (01) ==
PROVIDERS: Physician Assistant; Emergency Provider Student in an Organized Health Care Education/Training Program; PCP Family Medicine
DX: J10.1 Influenza due to other identified influenza virus with other respiratory manifestations (principal); R07.89 Other chest pain; R05.9 Cough, unspecified; R50.9 Fever, unspecified; R51.9 Headache, unspecified; M79.10 Myalgia, unspecified site; R11.2 Nausea with vomiting, unspecified; Z79.899 Other long term (current) drug therapy; Z03.818 Encounter for observation for suspected exposure to other biological agents ruled out
CPT/HCPCS: 0241U; 36415; 71046; 80048; 80076; 83735; 84484; 85025; 93005; 99283; 99285

== ENCOUNTER → 2024-08-28 07:34 | Outpatient (BNV) | payer OTHER, SELFPAY | PROVIDERS: Emergency Provider Student in an Organized Health Care Education/Training Program; PCP Family Medicine; Visit Provider Internal Medicine Cardiovascular Disease | DX: R94.31 Abnormal electrocardiogram [ECG] [EKG] (principal) | CPT/HCPCS: 93010 ==

== ENCOUNTER → 2024-08-28 07:45 | Outpatient (BNV) | payer OTHER, SELFPAY | PROVIDERS: Emergency Provider Student in an Organized Health Care Education/Training Program; PCP Family Medicine; Visit Provider Radiology Diagnostic Radiology | DX: R05.9 Cough, unspecified (principal); R07.9 Chest pain, unspecified | CPT/HCPCS: 71046 ==

== ENCOUNTER 2024-09-11 12:47 | Outpatient (REF) | payer OTHER, SELFPAY ==
--- NOTE | ~2024-09-11 | MR_ITS ---
EXAMINATION: MR BRAIN PITUITARY PROTOCOL WITHOUT AND WITH CONTRAST CLINICAL INFORMATION: Pituitary adenoma. COMPARISON: May 29, 2023. TECHNIQUE: Multiplanar, multisequence MRI of the brain and sellar/suprasellar region was obtained before and after the intravenous administration of 3.0 mL gadolinium based without reported immediate complications. FINDINGS: Pituitary gland measures 11 x 14 x 7 mm. No discrete focal poorly enhancing or delayed enhancing lesion. The pituitary stalk is midline and measures 2 mm maximal thickness. The optic chiasm is intact. Flow-void signal within the cavernous supracavernous segments of the ICA is normal bilaterally. No enhancing mass in the cavernous sinuses. No restricted diffusion. Bilateral, multifocal patchy and punctate nonenhancing or restricted diffusion subcortical and deep white matter hyperintense T2 FLAIR signal involving centrum semiovale and vo radiata, the most conspicuous in the deep periventricular white matter right frontal horn of the lateral ventricle. Flow-void signal within the main cerebral vessels is normal. Craniocervical junction demonstrates a 4 mm descendens of the cerebellar tonsils below foramen magnum. No abnormal enhancement within the intra-axial or the extra-axial compartments of the cranium. Monique-white matter differentiation is normal. No acute intracranial hemorrhage, mass effect, midline shift, hydrocephalus or herniation. Mucosal thickening of the paranasal sinuses with a polypoid morphology pattern of the left maxillary sinus. There is a pneumatized left pterygoid recess with mucosal thickening. Hyperintense T2 FLAIR signal within the right mastoid air cells and probably right tympanic cavity. MR/MR head/brain wo/w con IMPRESSION: No gross microadenoma or macroadenoma, pituitary gland. White matter disease. Consider demyelinating process in the correct clinical settings. Small vessel occlusive disease seems less likely. Low position cerebellar tonsils. Paranasal sinus disease likely chronic. Electronically signed by: Rui Saldivar MD 09/11/2024 02:26 PM EST
[2024-09-11] MEDS: gadobutroL 7.5 ML VIAL IVPUSH (13:35)
== END 2024-09-11 12:48 | disposition home or self-care (01) ==
LOC: HO.MRI 12:47
PROVIDERS: Visit Provider Family Medicine
DX: D44.3 Neoplasm of uncertain behavior of pituitary gland (principal)
CPT/HCPCS: 70553; A9585

== ENCOUNTER → 2024-09-11 13:00 | Outpatient (BNV) | payer OTHER, SELFPAY | PROVIDERS: Visit Provider Radiology Diagnostic Radiology | DX: R90.82 White matter disease, unspecified (principal) | CPT/HCPCS: 70553 ==

== ENCOUNTER 2025-05-12 08:33 | Outpatient (REF) | payer OTHER, SELFPAY ==
--- NOTE | ~2025-05-12 | MM_ITS ---
EXAMINATION: MM SCREENING DIGITAL BREAST TOMOSYNTHESIS, BILATERAL CLINICAL INFORMATION: Screening. Asymptomatic. COMPARISON: Mammography: Comparison is made with available priors TECHNIQUE: Digital breast mammography with tomosynthesis is performed in both the craniocaudal and mediolateral oblique views along with computer-aided detection (CAD). FINDINGS: There are scattered areas of fibroglandular density. There are no significant masses, abnormal calcifications, or other abnormalities. MM/MM tomosynthesis screening BI IMPRESSION: No mammographic evidence of malignancy. ASSESSMENT: BI-RADS Category 1: Negative RECOMMENDATION: Routine annual mammography screening. 1 year F/U This examination should not preclude the clinical evaluation of a suspicious palpable abnormality. This patient's information was entered into a reminder system with a target due date for their next mammogram. Electronically signed by: Regla Clark DO 05/12/2025 09:11 AM TOM[facility]
== END 2025-05-12 08:34 | disposition home or self-care (01) ==
LOC: HO.MAMMO 08:33
PROVIDERS: PCP Family Medicine; Visit Provider Family Medicine
DX: Z12.31 Encounter for screening mammogram for malignant neoplasm of breast (principal)
CPT/HCPCS: 77063; 77067

== ENCOUNTER → 2025-05-12 08:45 | Outpatient (BNV) | payer OTHER, SELFPAY | PROVIDERS: PCP Family Medicine; Visit Provider Internal Medicine | DX: Z12.31 Encounter for screening mammogram for malignant neoplasm of breast (principal) | CPT/HCPCS: 77063; 77067 ==